=== PATIENT | female | born 1975 | race African-American/Black ===

== ENCOUNTER 2016-10-17 10:31 | Inpatient (IN) | payer OTHER ==
[~2016-10-17] VITALS: Ht 167.6 cm; Wt 111.6 kg
[2016-10-17 12:04] LABS: URINE APPEARANCE CLEAR (CLEAR); URINE BILIRUBIN NEG (NEG); URINE COLOR YELLOW; URINE EPITHELIAL CELL AUTO >30 /lpf (0-5); URINE NITRITE NEG (NEG); URINE PH 6.5 (4.5-7.5); URINE SPECIFIC GRAVITY 1.017 (1.000-1.030); UROBILINOGEN NEG (NEG); ZZUR CULT IF INDIC CLEAN CATCH YES
[2016-10-17 12:09] LABS: BASO % 0.4 %; BASO ABS # 0.03 K/uL (0-0.2); COMPLETE YES; EOS % 1.6 %; HEMATOCRIT 36.4 % (37-47); IG% 0.1 %; LYMPH % 26.6 %; LYMPH ABS # 1.88 K/uL (1.2-3.4); MEAN CORPUSCULAR HEMOGLOBIN 26.4 pg (25-34); MEAN PLATELET VOLUME 8.9 fL (7.4-10.4); MONO % 8.9 %; NEUT % 62.4 %; PLATELET COUNT 299 K/uL (130-400); RED BLOOD COUNT 4.55 M/uL (4.2-5.4); WHITE BLOOD COUNT 7.07 K/uL (4.8-10.8)
[2016-10-17 12:10] LABS: MANUAL MICROSCOPIC REQUIRED? NO; REVIEW REQ? NO
[2016-10-17 12:27] LABS: CALCIUM 8.6 mg/dl (8.5-10.1); CREATININE 0.95 mg/dl (0.60-1.20); POTASSIUM 3.6 mmol/L (3.5-5.1)
--- NOTE | 2016-10-17 12:27 | EMERGENCY ROOM VISIT NOTE ---
History Report prepared by Rocael: Tim Sanchez Under the Supervision of: Dr. Lynne Saini D.O. First contact with patient: 11:03 Chief Complaint: MENTAL HEALTH EVALUATION Stated Complaint: ANXIETY, PARANOID, SCHIZOPHRENIA, MH EVAL History of Present Illness The patient is a 41 year old female who presents to the Emergency Room for a mental health evaluation. She was seen in a psychiatric hospital in [place] in 2015 and was diagnosed with paranoid schizophrenia disorder. Her current state is more severe than the previous. Recently, she has been going through a lot of stress and life events that have exacerbated her condition. She is also recently homeless. She has many auditory hallucinations that have been getting worse. She believes that everyone is trying to kill her. She is very scared, anxious, and stressed as well. The voices have not recently told her to kill herself, but she feels suicidal at times because the voices are present. She is currently not medication because she states that they make her nauseated and dizzy. She denies any vomiting, abnormal urinary symptoms, , or any other abnormal symptoms. Source of History: patient Onset: recently Position: other (Global) Symptom Intensity: severe Quality: other (Auditory Hallucinations) Timing: intermittent Associated Symptoms: No vomiting, No urinary symptoms Note: She is currently anxious and stressed. Review of Systems See HPI for pertinent positives & negatives. A total of 10 systems reviewed and were otherwise negative. Past Medical & Surgical Medical Problems: (1) Obesity (2) Paranoid schizophrenia Family History Patient reports no known family medical history. Social History Smoking Status: Never Smoker Smokeless Tobacco Use: No Housing Status: lives alone Occupation Status: employed Current/Historical Medications No Active Prescriptions or Reported Meds Allergies Coded Allergies: Peanut (Unverified Allergy, Severe, ITCHING TONGUE, 10/17/16) Physical Exam Vital Signs Date Time Temp Pulse Resp B/P (MAP) Pulse Ox O2 Delivery O2 Flow Rate FiO2 10/17/16 16:43 105 20 151/100 95 Room Air 10/17/16 15:18 101 20 161/109 100 Room Air 10/17/16 14:00 36.8 94 16 164/102 98 Room Air 10/17/16 13:01 104 16 158/98 98 10/17/16 11:00 36.8 102 20 173/100 97 Room Air 10/17/16 10:48 36.9 112 22 184/132 98 Room Air Physical Exam GENERAL: Obese, alert, well appearing, well nourished, no distress, non-toxic EYE EXAM: normal conjunctiva, PERRL and EOM's grossly intact OROPHARYNX: no exudate, no erythema, lips, buccal mucosa, and tongue normal and mucous membranes are moist NECK: supple, no nuchal rigidity, no adenopathy, non-tender LUNGS: Clear to auscultation. Normal chest wall mechanics HEART: no murmurs, S1 normal and S2 normal ABDOMEN: abdomen soft, non-tender, normo-active bowel sounds, no masses, no rebound or guarding. BACK: Back is symmetrical on inspection and there is no deformity, no midline tenderness, no CVA tenderness. SKIN: no rashes and no bruising UPPER EXTREMITIES: upper extremities are grossly normal. LOWER EXTREMITIES: No pitting edema. NEURO EXAM: Normal sensorium, cranial nerves II-XII grossly intact, normal speech, no gross weakness of arms, no gross weakness of legs. PSYCH: Suicidal ideation is present. Auditory hallucinations are present. Medical Decision & Procedures ER Provider Diagnostic Interpretation: Radiology results have been interpreted by the radiologist and reviewed by me. HEAD CT NONCONTRAST CT DOSE: 537.48 mGy.cm HISTORY: Altered mental status. psych request TECHNIQUE: Multiaxial CT images of the head were performed without the use of intravenous contrast. Automated exposure control was utilized for this study. Comparison: None. Findings: There are bubbly secretions within the left sphenoid sinus. The mastoid air cells are clear. The calvarium and skull base are intact. The ventricles and sulci are within normal limits. There is no mass, hematoma, midline shift, or acute infarct. Impression: No acute intracranial abnormality. Electronically signed by: Sukh Longoria M.D. 10/17/2016 4:34 PM Dictated Date/Time: 10/17/2016 4:31 PM Laboratory Results 10/17/16 11:57 Red Blood Count 4.55, Mean Corpuscular Volume 80.0, Mean Corpuscular Hemoglobin 26.4, Mean Corpuscular Hemoglobin Concent 33.0, Mean Platelet Volume 8.9, Neutrophils (%) (Auto) 62.4, Lymphocytes (%) (Auto) 26.6, Monocytes (%) (Auto) 8.9, Eosinophils (%) (Auto) 1.6, Basophils (%) (Auto) 0.4, Neutrophils # (Auto) 4.41, Lymphocytes # (Auto) 1.88, Monocytes # (Auto) 0.63, Eosinophils # (Auto) 0.11, Basophils # (Auto) 0.03 10/17/16 11:57 Test 10/17/16 11:00 10/17/16 11:57 Urine Color YELLOW Urine Appearance CLEAR (CLEAR) Urine pH 6.5 (4.5-7.5) Urine Specific [place] 1.017 (1.000-1.030) Urine Protein NEG (NEG) Urine Glucose (UA) NEG (NEG) Urine Ketones NEG (NEG) Urine Occult Blood TRACE (NEG) Urine Nitrite NEG (NEG) Urine Bilirubin NEG (NEG) Urine Urobilinogen NEG (NEG) Urine Leukocyte Esterase NEG (NEG) Urine WBC (Auto) 1-5 /hpf (0-5) Urine RBC (Auto) 0-4 /hpf (0-4) Urine Hyaline Casts (Auto) 1-5 /lpf (0-5) Urine Epithelial Cells (Auto) >30 /lpf (0-5) Urine Bacteria (Auto) 1+ (NEG) Urine Test NEG (NEG) Urine Opiates Screen NEG (NEG) Urine Methadone, Qualitative NEG (NEG) Urine Barbiturates NEG (NEG) Urine Phencyclidine (PCP) Level NEG (NEG) Ur Amphetamine/Methamphetamine NEG (NEG) MDMA (Ecstasy) Screen NEG (NEG) Urine Benzodiazepines Screen NEG (NEG) Urine Cocaine Metabolite NEG (NEG) Urine Marijuana (THC) NEG (NEG) White Blood Count 7.07 K/uL (4.8-10.8) Red Blood Count 4.55 M/uL (4.2-5.4) Hemoglobin 12.0 g/dL (12.0-16.0) Hematocrit 36.4 % (37-47) Mean Corpuscular Volume 80.0 fL (80-100) Mean Corpuscular Hemoglobin 26.4 pg (25-34) Mean Corpuscular Hemoglobin Concent 33.0 g/dl (32-36) Platelet Count 299 K/uL (130-400) Mean Platelet Volume 8.9 fL (7.4-10.4) Neutrophils (%) (Auto) 62.4 % Lymphocytes (%) (Auto) 26.6 % Monocytes (%) (Auto) 8.9 % Eosinophils (%) (Auto) 1.6 % Basophils (%) (Auto) 0.4 % Neutrophils # (Auto) 4.41 K/uL (1.4-6.5) Lymphocytes # (Auto) 1.88 K/uL (1.2-3.4) Monocytes # (Auto) 0.63 K/uL (0.11-0.59) Eosinophils # (Auto) 0.11 K/uL (0-0.5) Basophils # (Auto) 0.03 K/uL (0-0.2) RDW Standard Deviation 44.9 fL (36.4-46.3) RDW Coefficient of Variation 15.4 % (11.5-14.5) Immature Granulocyte % (Auto) 0.1 % Immature Granulocyte # (Auto) 0.01 K/uL (0.00-0.02) Anion Gap 7.0 mmol/L (3-11) Est Creatinine Clear Calc Drug Dose 98.7 ml/min Estimated GFR () 86.2 Estimated GFR (Non- 74.4 BUN/Creatinine Ratio 10.0 (10-20) Calcium Level 8.6 mg/dl (8.5-10.1) Total Bilirubin 0.3 mg/dl (0.2-1) Aspartate Amino Transf (AST/SGOT) 25 U/L (15-37) Alanine Aminotransferase (ALT/SGPT) 50 U/L (12-78) Alkaline Phosphatase 83 U/L (45-117) Total Protein 7.0 gm/dl (6.4-8.2) Albumin 3.3 gm/dl (3.4-5.0) Globulin 3.7 gm/dl (2.5-4.0) Albumin/Globulin Ratio 0.9 (0.9-2) Thyroid Stimulating Hormone (TSH) 0.641 uIu/ml (0.300-4.500) Salicylates Level < 1.7 mg/dl (2.8-20) Acetaminophen Level < 2 ug/ml (10-30) Ethyl Alcohol mg/dL < 3.0 mg/dl (0-3) Date/Time Source Procedure Growth Status 10/17/16 11:00 Urine , Clean Catch Urine Culture - Final THREE TYPES OF ORGANISMS PRESENT, ALL... Complete Laboratory results per my review. Medications Administered Medications (Trade) Dose Ordered Sig/Stacey Route Start Time Stop Time Status Last Admin Dose Admin Hydrochlorothiazide (Hydrochlorothiazide Tab) 25 mg NOW STAT PO 10/17/16 15:06 10/17/16 15:07 DC 10/17/16 15:12 25 MG ED Course 1103: The patient was evaluated in room A7. A complete history and physical exam was performed. 1500: I was informed by the psychologic manager case that they would like a CT scan of the patient's head and something for her blood pressure. Pt likely to be placed in [address] [place] [address]. 1506: Ordered Hydrochlorothiazide 25 mg PO 1730: The patient was accepted into [address] [place] [address] for further evaluation and management. Medical Decision Differential diagnoses include mood disorder, infection, hypoglycemia, electrolyte abnormalities, cardiac sources, intracerebral event, toxicologic, neurologic, as well as others. Medication Reconciliation: I attest that I have personally reviewed the patient' s current medication list. Blood pressure screening: Patient was found to have an elevated blood pressure and was referred to their primary doctor for recheck and further treatment. Head CT and blood pressure management requested by psychiatry. Doubt hypertensive urgency/emergency, CVA, intracranial hemorrhage. Patient with well -known psychiatric condition and noncompliant with medications. Doubt additional occult pathology. Impression Primary Impression: Paranoid schizophrenia Additional Impressions: Depression Hypertension Obesity Scribe Attestation The scribe's documentation has been prepared under my direction and personally reviewed by me in its entirety. I confirm that the note above accurately reflects all work, treatment, procedures, and medical decision making performed by me. Departure Information Dispostion Mental Health Acute Care Prescriptions No Active Prescriptions or Reported Meds Referrals No Doctor, Assigned (PCP) Patient Instructions My [facility] Problem Qualifiers Additional Impressions: Depression Depression Type: unspecified Qualified Codes: F32.9 - Major depressive disorder, single episode, unspecified Hypertension Hypertension type: essential hypertension Qualified Codes: I10 - Essential ( primary) hypertension Obesity Obesity type: unspecified obesity type Obesity severity: morbid Qualified Codes: E66.01 - Morbid (severe) obesity due to excess calories
[2016-10-17 12:35] LABS: ACETAMINOPHEN < 2 ug/ml (10-30)
[2016-10-17 12:38] LABS: ALB/GLOB RATIO 0.9 (0.9-2); THYROID STIMULATING HORMONE 0.641 uIu/ml (0.300-4.500)
[2016-10-17 13:31] LABS: BENZODIAZEPINE, URINE NEG (NEG); COCAINE,URINE NEG (NEG); PHENCYCLIDINE, URINE NEG (NEG)
[2016-10-17] MEDS ORDERED: HYDROCHLOROTHIAZIDE 25 MG TAB PO STA (15:06)
--- NOTE | 2016-10-17 16:35 | DIAGNOSTIC IMAGING REPORT ---
HEAD CT NONCONTRAST CT DOSE: 537.48 mGy.cm HISTORY: Altered mental status. psych request TECHNIQUE: Multiaxial CT images of the head were performed without the use of intravenous contrast. Automated exposure control was utilized for this study. Comparison: None. Findings: There are bubbly secretions within the left sphenoid sinus. The mastoid air cells are clear. The calvarium and skull base are intact. The ventricles and sulci are within normal limits. There is no mass, hematoma, midline shift, or acute infarct. Impression: No acute intracranial abnormality. Electronically signed by: Sukh Longoria M.D. 10/17/2016 4:34 PM Dictated Date/Time: 10/17/2016 4:31 PM
[2016-10-17] MEDS ORDERED: CLONAZEPAM 0.5 MG TAB PO PRN (17:30)
[2016-10-17] MEDS ORDERED: MAGNESIUM HYDROXIDE SUSP 30 ML UDC PO PRN (17:30)
[2016-10-17] MEDS ORDERED: hydrOXYzine HCL 25 MG TAB PO PRN ×2 (17:30)
[2016-10-17] MEDS ORDERED: SODIUM CHLORIDE 0.65% NA SOLN 45 ML (OCEAN) PRN (17:30)
[2016-10-17] MEDS ORDERED: BISMUTH SUBSALICYLATE PER ML OMNICELL CHARGE PO PRN (17:30)
[2016-10-17] MEDS ORDERED: RISPERIDONE 1 MG TAB PO ONE (17:45)
[2016-10-17] MEDS ORDERED: NURSING VERBAL MED ORDER SCH (18:00)
[2016-10-17 18:30] VITALS: O2SAT 96
[2016-10-17 19:35] VITALS: BP 140/99; PULSE 102; TEMP 37; BMI 39.7
[2016-10-18 07:04] VITALS: BP 121/82; PULSE 102; TEMP 36.7
[2016-10-18] MEDS: HYDROCHLOROTHIAZIDE 25 MG TAB PO SCH (08:23)
[2016-10-18] MEDS: RISPERIDONE ODT 0.5MG PO PRN ×2 (08:24→14:43)
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
[2016-10-18] MEDS: ACETAMINOPHEN 325 MG TAB PO PRN ×2 (14:29→21:15)
[2016-10-18] MEDS: LORAZEPAM 1 MG TAB PO PRN (15:09)
[2016-10-18] MEDS ORDERED: RISPERIDONE 1 MG TAB PO SCH (22:00)
[2016-10-19 06:07] VITALS: BP 101/69; PULSE 80; TEMP 36.4
[2016-10-19 06:47] LABS: CHOLESTEROL/HDL RATIO 3.5
[2016-10-19] MEDS: HYDROCHLOROTHIAZIDE 25 MG TAB PO SCH (09:31)
[2016-10-19] MEDS: RISPERIDONE ODT 0.5MG PO PRN (09:31)
[2016-10-19] MEDS: LORAZEPAM 1 MG TAB PO PRN (11:10)
[2016-10-19] MEDS ORDERED: RISPERIDONE 1 MG TAB PO ONE (11:30)
--- NOTE | 2016-10-19 11:34 | Psychiatric Progress Notes ---
Progress Note Date of Service Oct 19, 2016. Interval History 41 yo female admitted voluntarily on 10/18/16 with an acute exacerbation of paranoid schizophrenia after being off of her medications. Chief Complaint "The voices, its like they're hungry.". Subjective Patient was seen & assessed interval progress reviewed with Treatment Team. The patient remains very psychotic today. She is paranoid about me writing her name on the board outside of the office, thinking that people will know all about her by doing that. She eventually asks me to erase her name. She reports ongoing voices in her head saying that they are going to eat her. She was so afraid last night that she slept on the floor and not her bed. She is having visual hallucinations, seeing bodies stacked up on the floor with a staff member on top eating a bowl of cereal. She also saw the staff in the nurses station eating each other. She is not able to reality test this and she feels afraid. She reports that she feels tired on the meds, but they are helping her to feel more "calm" and so is willing to increase the dose, but did not want to think about changing to a different agent, Invega. She says that she wants to kill herself when she leaves here because she doesn't like her life , "I shouldn't have to live like this." and also asks for a gun. Review of Systems Constitutional: + fatigue ENT: No hearing loss, No unusual epistaxis, No nasal symptoms, No sore throat, No tinnitus, No dental problems, No trouble swallowing, No problem reported Respiratory: No cough, No sputum, No wheezing, No shortness of breath, No dyspnea on exertion, No dyspnea at rest, No hemoptysis, No problem reported Cardiovascular: No chest pain, No orthopnea, No PND, No edema, No claudication , No palpitations, No problem reported Abdomen: No pain, No nausea, No vomiting, No diarrhea, No constipation, No GI bleeding, No problem reported Musculoskeletal: No joint pain, No muscle pain, No swelling, No calf pain, No problem reported Neurologic: No memory loss, No paralysis, No weakness, No numbness/tingling, No vertigo, No balance problems, No problem reported Psychiatric: + problem reported (paranoia, and hallucinations) Integumentary: No rash, No itch, No new/changing skin lesions, No color change , No bleeding, No problem reported Sleep Information Total Hours of Sleep: 8.00 Meal Information Percent of Breakfast Consumed: 100 Percent of Lunch Consumed: 100 Percent of Dinner Consumed: 100 Mental Status Exam During interview pt is: guarded Appearance: disheveled (in hospital gown and pants, hair is disheveled, but no odor and not unclean) Eye contact is: fair Motor behavior is: steady gait & station, no abnormal motor movements Speech: normal in rate, rhythm & volume, other (slow and intentional, minimal spont speech of few words when asked question) Affect: anxious Mood is: depressed, anxious Thought process: perseveration (about hallucinations and delusions), other ( paucity of spontaneous thoughts and disorganized) Thought content: preoccupation, paranoid (feeling others are trying to hurt her , eat her), delusions (beleiving others are trying to kill her and eat her with no reality testing), ideas of reference (other actions are in reference to their desire to harm her), persecution Suicidal thought are: present, Plan: present (asking for a gun) Homicidal thoughts are: denied Hallucinations: auditory, visual Cognition: memory grossly intact, language grossly intact Intelligence estimated to be: average Insight: poor, severely impaired Judgement: poor, severely impaired Impression The patient remains psychotic, with paranoia and both auditory and visual hallucinations. Risperdal is helping to calm, but today we will titrate tof 1 mg. AM and 1.5 mg. Hs, continuing prns. She is too psychotic to discuss an BANKS today, but with her history of noncompliance, would benefit. Will need to gather additional information from family as she is too psychotic to participate in an accurate review of history. Plan (1) Paranoid schizophrenia 1. Safety - inpatient is least restrictive and most appropriate setting for care due to ongoing AH prompting SI with plan, disorganization and paranoid delusions of others harming her resulting in statement "I am going to be violent" and limited ability to care for self in this disorganized state - milieu, group therapy, and while still verbalizing thoughts of violence Medically necessary private room 2. Medications - Risperdal 1mg/hs with 0.5mg po tid prn watching for orthostasis, and sedation , 10/19/16 will get FBS and Fasting lipids; watch tachycardia may be agitation of psychosis but could be SE or risperdal - change klonopin to prn ativan for severe agitation due to shorter half life and need to monitor sedation 3. Obtain prior records from [place] to learn about past med trials, efficacy and side effects, if risperdal is efficatious consider Consta or Invega to foster compliance if no contraindications and accessible 10/19 - Increase Risperdal to 1 mg. AM and 1.5 mg. HS - Obtain supplemental from family (2) Obesity - obtain fasting lipids and blood sugar - monitor and consider metformin to offset weight gain of AAP - encourage physical activity as tolerated to reduce risk of gain Discharge / Aftercare Planning Primary Care Physician: Name: Unknown Therapist: Name: Unknown Emergency Vehicle Dispatcher: Name: Unknown Visit Code E&M Code: 35312 Inventory Assets Strengths: voluntary for admission, supportive family (allbeit geographically ), locked unit Needs: assurance of aftercare and treatment plan to foster compliance clarification of her job and housing status Risk Factors Assessment : No /single/: Yes Higher / Fall in social status: No Health problems: No Mental Health Diagnoses: Yes Substance use disorders: No Previous attempt: Yes Previous attempt; planned: No Previous attempt; didn't tell: Yes Family history of suicide: No Previous psychiatric stay: Yes Hopelessness: Yes Smoker: No Protective Factors Assessment Jehovah'S Witness beliefs: Yes : No Responsible for young children: No Employed: No Stable relationships: No Supportive family: Yes Good rapport with provider: No Data Vital Signs Last 24 Hrs: Date Time Temp Pulse Resp B/P (MAP) Pulse Ox O2 Delivery O2 Flow Rate FiO2 10/19/16 06:07 36.4 80 17 101/69 Meds Administered Last 24 Hrs: Meds Administered (Past 24Hrs) Medications (Trade) Dose Ordered Sig/Stacey Route Start Time Stop Time Status Last Admin Dose Admin Hydrochlorothiazide (Hydrochlorothiazide Tab) 25 mg NOW STAT PO 10/17/16 15:06 10/17/16 15:07 DC 10/17/16 15:12 25 MG Acetaminophen (Tylenol Tab) 650 mg Q4H PRN PO 10/17/16 17:30 11/16/16 17:29 10/18/16 21:15 650 MG Bismuth Subsalicylate (Kaopectate Liqd) 15 ml PRN PRN PO 10/17/16 17:30 11/16/16 17:29 10/18/16 21:17 15 ML Risperidone (Risperdal M Tab) 0.5 mg TID PRN PO 10/17/16 17:30 11/16/16 17:29 10/19/16 09:31 0.5 MG Clonazepam (Klonopin Tab) 0.5 mg TID PRN PO 10/17/16 17:30 10/18/16 12:46 DC 10/18/16 08:24 0.5 MG Risperidone (Risperdal Tab) 1 mg NOW ONCE PO 10/17/16 17:45 10/17/16 17:46 DC 10/17/16 18:22 1 MG Hydrochlorothiazide (Hydrochlorothiazide Tab) 25 mg DAILY PO 10/18/16 09:00 11/17/16 08:59 10/19/16 09:31 25 MG Risperidone (Risperdal Tab) 1 mg HS PO 10/18/16 22:00 11/17/16 21:59 10/18/16 21:11 1 MG Lorazepam (Ativan Tab) 1 mg TID PRN PO 10/18/16 12:45 11/17/16 12:44 10/18/16 15:09 1 MG Lab Results Last 24 Hrs: Last 24 Hours Test 10/19/16 06:10 Fasting Glucose 100 mg/dl Triglycerides Level 125 mg/dl Cholesterol Level 166 mg/dl HDL Cholesterol 47 mg/dl LDL Cholesterol, Calculated 94 mg/dl VLDL Cholesterol, Calculated 25 mg/dl Cholesterol/HDL Ratio 3.5
[2016-10-19] MEDS: ACETAMINOPHEN 325 MG TAB PO PRN (14:09)
[2016-10-19] MEDS: RISPERIDONE 1 MG TAB PO SCH (21:11)
[2016-10-19] MEDS ORDERED: RISPERIDONE 1 MG TAB PO SCH (22:00)
[2016-10-20 06:40] VITALS: BP_SYST 122; BP_DIAS 70; BP_DIAS 83; PULSE 112; PULSE 120; TEMP 36.8
[2016-10-20] MEDS: HYDROCHLOROTHIAZIDE 25 MG TAB PO SCH (08:26)
[2016-10-20] MEDS: RISPERIDONE 1 MG TAB PO SCH ×2 (08:26→20:59)
[2016-10-20] MEDS: RISPERIDONE ODT 0.5MG PO PRN (10:01)
[2016-10-20] MEDS: LORAZEPAM 1 MG TAB PO PRN (10:01)
--- NOTE | 2016-10-20 13:16 | Psychiatric Progress Notes ---
Progress Note Date of Service Oct 20, 2016. Interval History 41 yo female admitted voluntarily on 10/18/16 with an acute exacerbation of paranoid schizophrenia after being off of her medications. Chief Complaint "Fine.". Subjective Patient was seen & assessed interval progress reviewed with Treatment Team. The patient is somewhat irritable and guarded today. She wanted to postpone the interview. She says that the pills are working and her hallucinations are going away. She remains anxious and at time fearful on the unit. She continues to eat her meals in her room, where she spends most of her time. She denies side effects to meds other than "tiredness". She reports good sleep and appetite. Attempts were made to explore her thought disorder further, but she became irritable saying "I'm fine, OK?!". Nursing reports that Colette has been paranoid, worried that staff are not who they say they are, because they wear street clothes just like the patients. Colette also said that she gets overstimulated when she is with more than 3 people at a time. She was able to shower today and put on clean gowns. Review of Systems Constitutional: + fatigue ENT: No hearing loss, No unusual epistaxis, No nasal symptoms, No sore throat, No tinnitus, No dental problems, No trouble swallowing, No problem reported Respiratory: No cough, No sputum, No wheezing, No shortness of breath, No dyspnea on exertion, No dyspnea at rest, No hemoptysis, No problem reported Cardiovascular: No chest pain, No orthopnea, No PND, No edema, No claudication , No palpitations, No problem reported Abdomen: No pain, No nausea, No vomiting, No diarrhea, No constipation, No GI bleeding, No problem reported Musculoskeletal: No joint pain, No muscle pain, No swelling, No calf pain, No problem reported Neurologic: No memory loss, No paralysis, No weakness, No numbness/tingling, No vertigo, No balance problems, No problem reported Psychiatric: + problem reported (hallucinations improving) Integumentary: No rash, No itch, No new/changing skin lesions, No color change , No bleeding, No problem reported Sleep Information Total Hours of Sleep: 7.25 Meal Information Percent of Breakfast Consumed: 100 Percent of Lunch Consumed: 100 Percent of Dinner Consumed: 100 Mental Status Exam During interview pt is: guarded Appearance: appropriately groomed (just showered) Eye contact is: fair Motor behavior is: steady gait & station, no abnormal motor movements Speech: normal in rate, rhythm & volume, other (slow and intentional, minimal spont speech of few words when asked question) Affect: blunted, anxious Mood is: depressed, irritable, anxious Thought process: goal directed Thought content: preoccupation, paranoid (feeling others are trying to hurt her , eat her), delusions (beleiving others are trying to kill her and eat her with no reality testing), ideas of reference (other actions are in reference to their desire to harm her), persecution Suicidal thought are: denied Homicidal thoughts are: denied Hallucinations: auditory, visual Cognition: memory grossly intact, language grossly intact Intelligence estimated to be: average Insight: poor, severely impaired Judgement: poor, severely impaired Impression The patient remains psychotic, but with some improvement. She is tolerating the medications with few side effects. Will continue current dose of risperdal for today. As she improves, and is able to tolerate the discussion, will work toward getting her on an BANKS for improved compliance. We have obtained supplemental info from her mother and sister, both of whom say that she is chronically ill, chronically hospitalized and chronically noncompliant. Plan (1) Paranoid schizophrenia 1. Safety - inpatient is least restrictive and most appropriate setting for care due to ongoing AH prompting SI with plan, disorganization and paranoid delusions of others harming her resulting in statement "I am going to be violent" and limited ability to care for self in this disorganized state - milieu, group therapy, and while still verbalizing thoughts of violence Medically necessary private room 2. Medications - Risperdal 1mg/hs with 0.5mg po tid prn watching for orthostasis, and sedation , 10/19/16 will get FBS and Fasting lipids; watch tachycardia may be agitation of psychosis but could be SE or risperdal - change klonopin to prn ativan for severe agitation due to shorter half life and need to monitor sedation 3. Obtain prior records from [place] to learn about past med trials, efficacy and side effects, if risperdal is efficatious consider Consta or Invega to foster compliance if no contraindications and accessible 10/19 - Increase Risperdal to 1 mg. AM and 1.5 mg. HS - Obtain supplemental from family 10/20 - Continue current meds - work toward an BANKS (2) Obesity - obtain fasting lipids and blood sugar - monitor and consider metformin to offset weight gain of AAP - encourage physical activity as tolerated to reduce risk of gain Discharge / Aftercare Planning Primary Care Physician: Name: Unknown Therapist: Name: Unknown Proof Coins Inspector: Name: Unknown Visit Code E&M Code: 02074 Inventory Assets Strengths: voluntary for admission, supportive family (allbeit geographically ), locked unit Needs: assurance of aftercare and treatment plan to foster compliance clarification of her job and housing status Risk Factors Assessment : No /single/: Yes Higher / Fall in social status: No Health problems: No Mental Health Diagnoses: Yes Substance use disorders: No Previous attempt: Yes Previous attempt; planned: No Previous attempt; didn't tell: Yes Family history of suicide: No Previous psychiatric stay: Yes Hopelessness: Yes Smoker: No Protective Factors Assessment Anglican beliefs: Yes : No Responsible for young children: No Employed: No Stable relationships: No Supportive family: Yes Good rapport with provider: No Data Vital Signs Last 24 Hrs: Date Time Temp Pulse Resp B/P (MAP) Pulse Ox O2 Delivery O2 Flow Rate FiO2 10/20/16 06:40 36.8 112 20 122/83 120 122/70 Meds Administered Last 24 Hrs: Meds Administered (Past 24Hrs) Medications (Trade) Dose Ordered Sig/Stacey Route Start Time Stop Time Status Last Admin Dose Admin Risperidone (Risperdal Tab) 1 mg HS PO 10/18/16 22:00 10/19/16 10:54 DC 10/18/16 21:11 1 MG Risperidone (Risperdal Tab) 1 mg 1130 ONCE PO 10/19/16 11:30 10/19/16 11:31 DC 10/19/16 11:10 1 MG Risperidone (Risperdal Tab) 1 mg QAM PO 10/20/16 09:00 11/19/16 08:59 10/20/16 08:26 1 MG Risperidone (Risperdal Tab) 1.5 mg HS PO 10/19/16 22:00 11/18/16 21:59 10/19/16 21:11 1.5 MG Lab Results Last 24 Hrs: 10/17/16 11:57 Red Blood Count 4.55, Mean Corpuscular Volume 80.0, Mean Corpuscular Hemoglobin 26.4, Mean Corpuscular Hemoglobin Concent 33.0, Mean Platelet Volume 8.9, Neutrophils (%) (Auto) 62.4, Lymphocytes (%) (Auto) 26.6, Monocytes (%) (Auto) 8.9, Eosinophils (%) (Auto) 1.6, Basophils (%) (Auto) 0.4, Neutrophils # (Auto) 4.41, Lymphocytes # (Auto) 1.88, Monocytes # (Auto) 0.63, Eosinophils # (Auto) 0.11, Basophils # (Auto) 0.03 10/17/16 11:57 Test 10/17/16 11:00 10/17/16 11:57 10/19/16 06:10 Urine Color YELLOW Urine Appearance CLEAR (CLEAR) Urine pH 6.5 (4.5-7.5) Urine Specific [place] 1.017 (1.000-1.030) Urine Protein NEG (NEG) Urine Glucose (UA) NEG (NEG) Urine Ketones NEG (NEG) Urine Occult Blood TRACE (NEG) Urine Nitrite NEG (NEG) Urine Bilirubin NEG (NEG) Urine Urobilinogen NEG (NEG) Urine Leukocyte Esterase NEG (NEG) Urine WBC (Auto) 1-5 /hpf (0-5) Urine RBC (Auto) 0-4 /hpf (0-4) Urine Hyaline Casts (Auto) 1-5 /lpf (0-5) Urine Epithelial Cells (Auto) >30 /lpf (0-5) Urine Bacteria (Auto) 1+ (NEG) Urine Test NEG (NEG) Urine Opiates Screen NEG (NEG) Urine Methadone, Qualitative NEG (NEG) Urine Barbiturates NEG (NEG) Urine Phencyclidine (PCP) Level NEG (NEG) Ur Amphetamine/Methamphetamine NEG (NEG) MDMA (Ecstasy) Screen NEG (NEG) Urine Benzodiazepines Screen NEG (NEG) Urine Cocaine Metabolite NEG (NEG) Urine Marijuana (THC) NEG (NEG) White Blood Count 7.07 K/uL (4.8-10.8) Red Blood Count 4.55 M/uL (4.2-5.4) Hemoglobin 12.0 g/dL (12.0-16.0) Hematocrit 36.4 % (37-47) Mean Corpuscular Volume 80.0 fL (80-100) Mean Corpuscular Hemoglobin 26.4 pg (25-34) Mean Corpuscular Hemoglobin Concent 33.0 g/dl (32-36) Platelet Count 299 K/uL (130-400) Mean Platelet Volume 8.9 fL (7.4-10.4) Neutrophils (%) (Auto) 62.4 % Lymphocytes (%) (Auto) 26.6 % Monocytes (%) (Auto) 8.9 % Eosinophils (%) (Auto) 1.6 % Basophils (%) (Auto) 0.4 % Neutrophils # (Auto) 4.41 K/uL (1.4-6.5) Lymphocytes # (Auto) 1.88 K/uL (1.2-3.4) Monocytes # (Auto) 0.63 K/uL (0.11-0.59) Eosinophils # (Auto) 0.11 K/uL (0-0.5) Basophils # (Auto) 0.03 K/uL (0-0.2) RDW Standard Deviation 44.9 fL (36.4-46.3) RDW Coefficient of Variation 15.4 % (11.5-14.5) Immature Granulocyte % (Auto) 0.1 % Immature Granulocyte # (Auto) 0.01 K/uL (0.00-0.02) Anion Gap 7.0 mmol/L (3-11) Est Creatinine Clear Calc Drug Dose 98.7 ml/min Estimated GFR () 86.2 Estimated GFR (Non- 74.4 BUN/Creatinine Ratio 10.0 (10-20) Calcium Level 8.6 mg/dl (8.5-10.1) Total Bilirubin 0.3 mg/dl (0.2-1) Aspartate Amino Transf (AST/SGOT) 25 U/L (15-37) Alanine Aminotransferase (ALT/SGPT) 50 U/L (12-78) Alkaline Phosphatase 83 U/L (45-117) Total Protein 7.0 gm/dl (6.4-8.2) Albumin 3.3 gm/dl (3.4-5.0) Globulin 3.7 gm/dl (2.5-4.0) Albumin/Globulin Ratio 0.9 (0.9-2) Thyroid Stimulating Hormone (TSH) 0.641 uIu/ml (0.300-4.500) Salicylates Level < 1.7 mg/dl (2.8-20) Acetaminophen Level < 2 ug/ml (10-30) Ethyl Alcohol mg/dL < 3.0 mg/dl (0-3) Fasting Glucose 100 mg/dl (70-99) Triglycerides Level 125 mg/dl (0-150) Cholesterol Level 166 mg/dl (0-200) HDL Cholesterol 47 mg/dl LDL Cholesterol, Calculated 94 mg/dl VLDL Cholesterol, Calculated 25 mg/dl Cholesterol/HDL Ratio 3.5 Date/Time Source Procedure Growth Status 10/17/16 11:00 Urine , Clean Catch Urine Culture - Final THREE TYPES OF ORGANISMS PRESENT, ALL... Complete
[2016-10-20] MEDS: ACETAMINOPHEN 325 MG TAB PO PRN (20:03)
[2016-10-21] MEDS: RISPERIDONE ODT 0.5MG PO PRN (06:48)
[2016-10-21] MEDS: LORAZEPAM 1 MG TAB PO PRN (06:48)
[2016-10-21 06:50] VITALS: BP 123/86; PULSE 105; TEMP 36.6
[2016-10-21] MEDS: RISPERIDONE 1 MG TAB PO SCH (09:07)
[2016-10-21] MEDS: HYDROCHLOROTHIAZIDE 25 MG TAB PO SCH (09:07)
--- NOTE | 2016-10-21 12:47 | Psychiatric Progress Notes ---
Progress Note Date of Service Oct 21, 2016. Interval History 41 yo female admitted voluntarily on 10/18/16 with an acute exacerbation of paranoid schizophrenia after being off of her medications. Chief Complaint "[People are trying to eat each other. Maybe I should solve my problem at the gun store]". Subjective Patient was seen & assessed interval progress reviewed with Treatment Team. I met individually with the patient today in order to assess her current mental status, answer questions that she may have, and formulated treatment plan. The patient tells me that she carries a diagnosis of "paranoid schizophrenia," and is able to correctly identify some of the symptoms of disorder, including hallucinations and "thinking that people are trying to kill [her]." She reports that he'll hospital she is continuing to have visions of "people eating each other." She also says that she feels that people are trying to "eat her." She clarified that by "eating" she means devouring human flesh, although she has also had visions of people having oral sex. She further reports that she is hearing "voices" that are telling her that she is about to be devoured, or that people are coming at her and will squirt "chloroform in[her] face." The patient reports that she has been experiencing visual hallucinations as well as auditory hallucinations at least for the past 3 years, and notes that the problem "gets better" when she takes risperidone. However, she says that haloperidol make sure "get all mixed up" and "roll on the floor" and "get extremely nervous and agitated." She tells me that she feels comfortable in the hospital, but adds that she believes that "probably suicide is the best solution for me." He says that she is growing apart from her children and that they are unlikely to be involved with her the future. He also says that she is tortured by her visions and hallucinations and thinks that the solution would be to kill herself by self-inflicted gunshot wound. Patient reports "good sleep " on the current medication regimen, and says that she does feel that risperidone has helped her sleep better at night. She reports that she is not experiencing any side effects from risperidone and she does appear to be tolerating it well. However, her psychotic symptoms persist. On mental status examination, as above, the patient demonstrates kandace psychotic symptoms and reports both visual and auditory hallucinations. She also has delusions of persecution, such as a belief that she is about to be "eaten alive" by other people or have chloroform sprayed in her face to kill her. Her mood is described as "nervous and upset." Her affect is anxious, but not particularly constricted and she is verbal, spontaneous, and seems capable of developing rapport. However, she abruptly terminates our meeting and walks out of the room. A few minutes later, she returned and asked me to "be sure to put that people are trying to chloroform me in my record." Review of Systems Constitutional: No fever, No chills, No sweats, No weight loss, No weakness, No fatigue, No problem reported ENT: No hearing loss, No unusual epistaxis, No nasal symptoms, No sore throat, No tinnitus, No dental problems, No trouble swallowing, No problem reported Respiratory: No cough, No sputum, No wheezing, No shortness of breath, No dyspnea on exertion, No dyspnea at rest, No hemoptysis, No problem reported Cardiovascular: No chest pain, No orthopnea, No PND, No edema, No claudication , No palpitations, No problem reported Abdomen: No pain, No nausea, No vomiting, No diarrhea, No constipation, No GI bleeding, No problem reported Musculoskeletal: No joint pain, No muscle pain, No swelling, No calf pain, No problem reported Neurologic: No memory loss, No paralysis, No weakness, No numbness/tingling, No vertigo, No balance problems, No problem reported Psychiatric: No depression symptoms, No anhedonism, No anxiety, No insomnia, No substance abuse, No problem reported Integumentary: No rash, No itch, No new/changing skin lesions, No color change , No bleeding, No problem reported Sleep Information Total Hours of Sleep: 6.75 Meal Information Percent of Breakfast Consumed: 100 Percent of Lunch Consumed: 100 Percent of Dinner Consumed: 100 Mental Status Exam During interview pt is: alert and oriented, guarded Appearance: disheveled Eye contact is: fair Motor behavior is: steady gait & station, no abnormal motor movements Speech: normal in rate, rhythm & volume, other (the patient is more fully verbal today, and speak spontaneously about her various ears and the sources of her current distress.) Affect: blunted, anxious Mood is: anxious Thought process: goal directed (with some loosening of associations without external structure, as well as tangentiality and derailment), looseness of associations Thought content: preoccupation, paranoid (feeling others are trying to hurt her , eat her), delusions (beleiving others are trying to kill her and eat her with no reality testing), ideas of reference (other actions are in reference to their desire to harm her), persecution Suicidal thought are: denied Homicidal thoughts are: denied Hallucinations: auditory, visual Cognition: memory grossly intact, language grossly intact Intelligence estimated to be: average Insight: poor, severely impaired Judgement: poor, severely impaired Impression The patient remains psychotic, but today is more verbal, spontaneous and appears to be more trusting her interactions with providers. Of concern is her voiced suicidal ideation, which include a thought of self-inflicted gunshot wound. She says that she does not intend to act on these thoughts while in the hospital, but says that this "may be the best solution" when she discharged, unless she can "stop the voices." She is tolerating risperidone well, and will increase her dose of this medication today in order to assist and controlling her psychotic symptoms Plan (1) Paranoid schizophrenia 1. Safety - inpatient is least restrictive and most appropriate setting for care due to ongoing AH prompting SI with plan, disorganization and paranoid delusions of others harming her resulting in statement "I am going to be violent" and limited ability to care for self in this disorganized state - milieu, group therapy, and while still verbalizing thoughts of violence Medically necessary private room 2. Medications - Risperdal 1mg/hs with 0.5mg po tid prn watching for orthostasis, and sedation , 10/19/16 will get FBS and Fasting lipids; watch tachycardia may be agitation of psychosis but could be SE or risperdal - change klonopin to prn ativan for severe agitation due to shorter half life and need to monitor sedation 3. Obtain prior records from [place] to learn about past med trials, efficacy and side effects, if risperdal is efficatious consider Consta or Invega to foster compliance if no contraindications and accessible 10/19 - Increase Risperdal to 1 mg. AM and 1.5 mg. HS - Obtain supplemental from family 10/20 - Continue current meds - work toward an BANKS 10/21 - Increase Risperidone to 2 mg PO qAM and 3 mg HS (2) Obesity - obtain fasting lipids and blood sugar - monitor and consider metformin to offset weight gain of AAP - encourage physical activity as tolerated to reduce risk of gain Discharge / Aftercare Planning Primary Care Physician: Name: Unknown Therapist: Name: Unknown Vascular Tech: Name: Unknown Visit Code E&M Code: 40028 Inventory Assets Strengths: voluntary for admission, supportive family (allbeit geographically ), locked unit Needs: assurance of aftercare and treatment plan to foster compliance clarification of her job and housing status Risk Factors Assessment : No /single/: Yes Higher / Fall in social status: No Health problems: No Mental Health Diagnoses: Yes Substance use disorders: No Previous attempt: Yes Previous attempt; planned: No Previous attempt; didn't tell: Yes Family history of suicide: No Previous psychiatric stay: Yes Hopelessness: Yes Smoker: No Protective Factors Assessment Synagogue beliefs: Yes : No Responsible for young children: No Employed: No Stable relationships: No Supportive family: Yes Good rapport with provider: No Absence of risk factors above: No Data Vital Signs Last 24 Hrs: Date Time Temp Pulse Resp B/P (MAP) Pulse Ox O2 Delivery O2 Flow Rate FiO2 10/21/16 06:50 36.6 105 20 123/86 Meds Administered Last 24 Hrs: Meds Administered (Past 24Hrs) Medications (Trade) Dose Ordered Sig/Stacey Route Start Time Stop Time Status Last Admin Dose Admin Risperidone (Risperdal Tab) 1 mg QAM PO 10/20/16 09:00 11/19/16 08:59 10/21/16 09:07 1 MG Risperidone (Risperdal Tab) 1.5 mg HS PO 10/19/16 22:00 11/18/16 21:59 10/20/16 20:59 1.5 MG Problem Qualifiers (1) Obesity: Obesity type: due to excess calories
[2016-10-21 13:41] LABS: SYNTHETIC CANNABINOIDS QL URIN NEGATIVE (Negative)
[2016-10-21] MEDS: ALUMINUM/MAGNESIUM SUSP 30 ML UDC PO PRN (14:18)
[2016-10-21] MEDS ORDERED: RISPERIDONE 3 MG TAB PO SCH (22:00)
[2016-10-22 06:53] VITALS: BP 121/85; PULSE 109; TEMP 36.6
[2016-10-22] MEDS: RISPERIDONE 2 MG TAB PO SCH ×2 (09:01→21:46)
[2016-10-22] MEDS: HYDROCHLOROTHIAZIDE 25 MG TAB PO SCH (09:01)
--- NOTE | 2016-10-22 10:22 | Psychiatric Progress Notes ---
Progress Note Date of Service Oct 22, 2016. Interval History 41 yo female admitted voluntarily on 10/18/16 with an acute exacerbation of paranoid schizophrenia after being off of her medications. Chief Complaint "I'm still seeing zombies, and the voices keep telling me that people here are trying to kill me.". Subjective Patient was seen & assessed interval progress reviewed with Treatment Team. I met individually with the patient this morning in order to assess her current mental status, determine her response to her recent medication changes, to provide support and encouragement, and to answer and address questions and concerns that the patient may have. The patient begins by telling me that she is no better, but later acknowledges that she does feel that risperidone is helping her in that her thinking is "more clear" and she is not experiencing his many visual hallucinations. Of note is the fact the patient, herself, refers to these as hallucinations and is today willing to consider the visions may not represent what is really happening. For example, when I ask her if she could take me to a window and show me the "zombies eating each other and tying cars together" that she reported that she was seeing, she said "how could you see them? You're not hallucinating." She reports that she has been troubled by both visual and auditory hallucinations since 2005, and notes that the visual hallucinations or episodic, while the auditory hallucinations are fairly continuous. She says that at first she got herself in trouble when she was hearing "voices" because she would confront people, such as strangers on the street, and accuse them of saying things that they hadn't said. She continues to believe that people are coming up behind her and spring chloroform and her face. Because of her history of visual hallucinations, I asked further about any history of head injury, and today she tells me that when she was 18 she inadvertently walked into a utility pole while walking rapidly and talking to a friend. She said that she was knocked unconscious. However, she says she has never had seizures, and the visual hallucinations did not occur until many years later. We discussed various treatment options, including clozapine and carbamazepine. However, she says that she feels that risperidone "is the right medication" and that it has helped her in the past. She says that it never takes the voices away, but they "get better" and she is still able to retain her "ability to think." I provided support, reality testing, education regarding her illness, and encouragement. The record indicates that the patient has had a somewhat elevated heart rate, a circumstance that occurs in the context of her anxiety and preexisted medication administration. The patient told me that she was unhappy with the hospital because her breakfast tray came "closer to 9" when she expects to eat at 8am. I was then notified that after the patient had eaten her breakfast she called 911 and told the truckload owner operator that the hospital was "starving her." When I confronted the patient about this she laughed and admitted that she had done it. She was instructed that this is not only inappropriate, it is illegal to make false reports. The patient indicated understanding. Review of Systems Constitutional: No fever, No chills, No sweats, No weight loss, No weakness, No fatigue, No problem reported ENT: No hearing loss, No unusual epistaxis, No nasal symptoms, No sore throat, No tinnitus, No dental problems, No trouble swallowing, No problem reported Respiratory: No cough, No sputum, No wheezing, No shortness of breath, No dyspnea on exertion, No dyspnea at rest, No hemoptysis, No problem reported Cardiovascular: No chest pain, No orthopnea, No PND, No edema, No claudication , No palpitations, No problem reported Abdomen: No pain, No nausea, No vomiting, No diarrhea, No constipation, No GI bleeding, No problem reported Musculoskeletal: No joint pain, No muscle pain, No swelling, No calf pain, No problem reported Neurologic: No memory loss, No paralysis, No weakness, No numbness/tingling, No vertigo, No balance problems, No problem reported Psychiatric: + depression symptoms, + anxiety, + problem reported (persistent auditory and visual hallucinations of a persecutory nature.) Integumentary: No rash, No itch, No new/changing skin lesions, No color change , No bleeding, No problem reported Sleep Information Total Hours of Sleep: 5.25 Meal Information Percent of Breakfast Consumed: 100 Percent of Lunch Consumed: 100 Percent of Dinner Consumed: 100 Mental Status Exam During interview pt is: alert and oriented, guarded Appearance: disheveled Eye contact is: fair Motor behavior is: steady gait & station, no abnormal motor movements Speech: normal in rate, rhythm & volume, other (the patient is more fully verbal today, and speak spontaneously about her various ears and the sources of her current distress.) Affect: blunted, anxious Mood is: anxious Thought process: goal directed (with some loosening of associations without external structure, as well as tangentiality and derailment), looseness of associations Thought content: preoccupation, paranoid (feeling others are trying to hurt her , eat her), delusions (beleiving others are trying to kill her and eat her with no reality testing), ideas of reference (other actions are in reference to their desire to harm her), persecution Suicidal thought are: denied Homicidal thoughts are: denied Hallucinations: auditory, visual Cognition: memory grossly intact, language grossly intact Intelligence estimated to be: average Insight: poor, severely impaired Judgement: poor, severely impaired Impression The patient remains psychotic, but today demonstrates tentative insight into her illness and, somewhat surprisingly, is willing to accept the possibility that the voices she hears and the visions that she sees are not based in reality. She also tells me today that she is at least ambivalent about killing herself, and says that the thoughts of killing herself are not present continuously, as she had indicated yesterday. She also renews her assertion that she will remain safe in the hospital and does not have any current active suicidal plans or intent. She appears to be tolerating risperidone 2 mg qam and 5 mg hs. Will increase her dose of Risperidone to 2 mg qam and 4 mg hs. Would consider offering a trial of carbamazepine. Also, the patient would be a candidate for clozapine, although currently she tells me that she does not want to consider it. Plan (1) Paranoid schizophrenia 1. Safety - inpatient is least restrictive and most appropriate setting for care due to ongoing AH prompting SI with plan, disorganization and paranoid delusions of others harming her resulting in statement "I am going to be violent" and limited ability to care for self in this disorganized state - milieu, group therapy, and while still verbalizing thoughts of violence Medically necessary private room 2. Medications - Risperdal 1mg/hs with 0.5mg po tid prn watching for orthostasis, and sedation , 10/19/16 will get FBS and Fasting lipids; watch tachycardia may be agitation of psychosis but could be SE or risperdal - change klonopin to prn ativan for severe agitation due to shorter half life and need to monitor sedation 3. Obtain prior records from [place] to learn about past med trials, efficacy and side effects, if risperdal is efficatious consider Consta or Invega to foster compliance if no contraindications and accessible 10/19 - Increase Risperdal to 1 mg. AM and 1.5 mg. HS - Obtain supplemental from family 10/20 - Continue current meds - work toward an BNAKS 10/21 - Increase Risperidone to 2 mg PO qAM and 3 mg HS 10/22 - Some improvement in the that auditory and visual hallucinations seem less intrusive. However, she seems to have acted out when her breakfast tray was delivered later than she expected by calling 911 and telling the truckload owner operator that we are "starving her." We were able to process that in our session. - Increase risperidone to 2 mg qam and 4 mg HS. (2) Obesity - obtain fasting lipids and blood sugar - monitor and consider metformin to offset weight gain of AAP - encourage physical activity as tolerated to reduce risk of gain Discharge / Aftercare Planning Primary Care Physician: Name: Unknown Therapist: Name: Unknown Artificial Glass Eye Maker: Name: Unknown Visit Code E&M Code: 82811 Inventory Assets Strengths: voluntary for admission, supportive family (allbeit geographically ), locked unit Needs: assurance of aftercare and treatment plan to foster compliance clarification of her job and housing status Risk Factors Assessment : No /single/: Yes Higher / Fall in social status: No Health problems: No Mental Health Diagnoses: Yes Substance use disorders: No Previous attempt: Yes Previous attempt; planned: No Previous attempt; didn't tell: Yes Family history of suicide: No Previous psychiatric stay: Yes Hopelessness: Yes Smoker: No Protective Factors Assessment Bahai beliefs: Yes : No Responsible for young children: No Employed: No Stable relationships: No Supportive family: Yes Good rapport with provider: No Absence of risk factors above: No Data Vital Signs Last 24 Hrs: Date Time Temp Pulse Resp B/P (MAP) Pulse Ox O2 Delivery O2 Flow Rate FiO2 10/22/16 06:53 36.6 109 20 121/85 Meds Administered Last 24 Hrs: Meds Administered (Past 24Hrs) Medications (Trade) Dose Ordered Sig/Stacey Route Start Time Stop Time Status Last Admin Dose Admin Risperidone (Risperdal Tab) 2 mg QAM PO 10/22/16 09:00 11/21/16 08:59 10/22/16 09:01 2 MG Risperidone (Risperdal Tab) 3 mg HS PO 10/21/16 22:00 11/20/16 21:59 10/21/16 21:46 3 MG Problem Qualifiers (1) Obesity: Obesity type: due to excess calories
[2016-10-22] MEDS: ACETAMINOPHEN 325 MG TAB PO PRN (14:19)
[2016-10-22] MEDS: RISPERIDONE ODT 0.5MG PO PRN (14:45)
[2016-10-23 07:00] VITALS: BP 127/88; PULSE 103; TEMP 36.8
[2016-10-23] MEDS: HYDROCHLOROTHIAZIDE 25 MG TAB PO SCH (08:17)
[2016-10-23] MEDS: RISPERIDONE 2 MG TAB PO SCH ×2 (08:17→21:05)
--- NOTE | 2016-10-23 10:19 | Psych Management Progress Note ---
Psychiatry Miscellaneous Date of Service: Oct 23, 2016. Patient seen, MS assessed. Patient is unable to rate mood and did not attend community meeting. Affect blunted and seems internally preoccupied. Encouraged cooperation with care and treatment plan as outlined by WILDLIFE REFUGE MANAGER.
--- NOTE | 2016-10-23 11:17 | Psychiatric Progress Notes ---
Progress Note Date of Service Oct 23, 2016. Interval History 41 yo female admitted voluntarily on 10/18/16 with an acute exacerbation of paranoid schizophrenia after being off of her medications. Chief Complaint "OK". Subjective Patient was seen & assessed interval progress reviewed with Treatment Team. The patient is again in her room when seen. She says that she is doing all right and feels that she is getting better. She rates her mood a 3 out of 10 and denies acute suicidal thinking today. Her hallucinations continue and she describes looking at people and seeing zombies and people. She says that she begins to look at somebody and they appear normal and then may begin to distort. She also continues to hear voices "that sound like they're hungry and want to eat me". She says that she sees people with point he ears holding knives as well. Staff report that the patient has been excessively hungry, eating excessively to the point that they have had to lock up the food in the common areas. She says that she feels safe in here but not outside and when asked to clarify this she says she still wants to get a gun in order to protect herself after discharge. She initially denies that the gun is to be used for suicide but then later changes her mind and says that life is not easy and that it would be easier to be . She indicates that she cannot be around other people here as it "stresses me out" and has not been able to go to more than one group or so. She denies side effects to medications other than some sedation. Review of Systems Constitutional: + fatigue ENT: No hearing loss, No unusual epistaxis, No nasal symptoms, No sore throat, No tinnitus, No dental problems, No trouble swallowing, No problem reported Respiratory: No cough, No sputum, No wheezing, No shortness of breath, No dyspnea on exertion, No dyspnea at rest, No hemoptysis, No problem reported Cardiovascular: No chest pain, No orthopnea, No PND, No edema, No claudication , No palpitations, No problem reported Abdomen: + problem reported (increase in appetite) Musculoskeletal: No joint pain, No muscle pain, No swelling, No calf pain, No problem reported Neurologic: No memory loss, No paralysis, No weakness, No numbness/tingling, No vertigo, No balance problems, No problem reported Psychiatric: + depression symptoms, + problem reported (auditory and visual hallucinations) Integumentary: No rash, No itch, No new/changing skin lesions, No color change , No bleeding, No problem reported Medication Side Effects: Sedation Sleep Information Total Hours of Sleep: 6.75 Meal Information Percent of Breakfast Consumed: 100 Percent of Lunch Consumed: 100 Percent of Dinner Consumed: 100 Mental Status Exam During interview pt is: alert and oriented, guarded Appearance: appropriately groomed Eye contact is: fair Motor behavior is: steady gait & station, no abnormal motor movements Speech: normal in rate, rhythm & volume, other (the patient is more fully verbal today, and speak spontaneously about her various ears and the sources of her current distress.) Affect: flat, anxious Mood is: anxious Thought process: goal directed, looseness of associations Thought content: preoccupation, paranoid (feeling others are trying to hurt her , eat her), delusions (beleiving others are trying to kill her and eat her with no reality testing), persecution Suicidal thought are: present Homicidal thoughts are: denied Hallucinations: auditory, visual Cognition: memory grossly intact, language grossly intact Intelligence estimated to be: average Insight: poor, severely impaired Judgement: poor, severely impaired Impression The patient continues to be psychotic with both auditory and visual hallucinations. She is tolerating the slow escalation of Risperdal and as of yesterday was increased to 2 mg in the morning and 4 mg at bedtime. She remains isolative, feeling unable to tolerate being around other people. Today I have encouraged her to at least try to be in the community a little bit each day as lying in a quiet room by herself will only cause a focus on her psychotic symptoms. She is somewhat ambivalent about her suicidality today, initially denying it but then saying that her life was not worth living. She clearly remains at high risk. Ideally we would like to see her on a long acting injectable for medication compliance moving forward. Nursing staff reports that her sister Luda in [place] is exploring long-term treatment options in that area so that she can be close to family. Today we will continue her current dose of medications, continue to assist her with reality testing. Plan (1) Paranoid schizophrenia 1. Safety - inpatient is least restrictive and most appropriate setting for care due to ongoing AH prompting SI with plan, disorganization and paranoid delusions of others harming her resulting in statement "I am going to be violent" and limited ability to care for self in this disorganized state - milieu, group therapy, and while still verbalizing thoughts of violence Medically necessary private room 2. Medications - Risperdal 1mg/hs with 0.5mg po tid prn watching for orthostasis, and sedation , 10/19/16 will get FBS and Fasting lipids; watch tachycardia may be agitation of psychosis but could be SE or risperdal - change klonopin to prn ativan for severe agitation due to shorter half life and need to monitor sedation 3. Obtain prior records from [facility] to learn about past med trials, efficacy and side effects, if risperdal is efficatious consider Consta or Invega to foster compliance if no contraindications and accessible 10/19 - Increase Risperdal to 1 mg. AM and 1.5 mg. HS - Obtain supplemental from family 10/20 - Continue current meds - work toward an [facility] 10/21 - Increase Risperidone to 2 mg PO qAM and 3 mg HS 10/22 - Some improvement in the that auditory and visual hallucinations seem less intrusive. However, she seems to have acted out when her breakfast tray was delivered later than she expected by calling 911 and telling the plant operator that we are "starving her." We were able to process that in our session. - Increase risperidone to 2 mg qam and 4 mg HS. 10/23 -Continue current medications -Assist with reality orientation (2) Obesity - obtain fasting lipids and blood sugar - monitor and consider metformin to offset weight gain of AAP - encourage physical activity as tolerated to reduce risk of gain 10/23 -The patient is eating to excess, necessitating that the staff lockup food in the common areas. She is eating 100% of all 3 meals plus snacks. Discharge / Aftercare Planning Primary Care Physician: Name: Unknown Therapist: Name: Unknown Transmission Builder: Name: Unknown Visit Code E&M Code: 73859 Inventory Assets Strengths: voluntary for admission, supportive family (allbeit geographically ), locked unit Needs: assurance of aftercare and treatment plan to foster compliance clarification of her job and housing status Risk Factors Assessment : No /single/: Yes Higher / Fall in social status: No Health problems: No Mental Health Diagnoses: Yes Substance use disorders: No Previous attempt: Yes Previous attempt; planned: No Previous attempt; didn't tell: Yes Family history of suicide: No Previous psychiatric stay: Yes Hopelessness: Yes Smoker: No Protective Factors Assessment Anabaptist beliefs: Yes : No Responsible for young children: No Employed: No Stable relationships: No Supportive family: Yes Good rapport with provider: No Absence of risk factors above: No Data Vital Signs Last 24 Hrs: Date Time Temp Pulse Resp B/P (MAP) Pulse Ox O2 Delivery O2 Flow Rate FiO2 10/23/16 07:00 36.8 103 18 127/88 Meds Administered Last 24 Hrs: Meds Administered (Past 24Hrs) Medications (Trade) Dose Ordered Sig/Stacey Route Start Time Stop Time Status Last Admin Dose Admin Risperidone (Risperdal Tab) 2 mg QAM PO 10/22/16 09:00 11/21/16 08:59 10/23/16 08:17 2 MG Risperidone (Risperdal Tab) 3 mg HS PO 10/21/16 22:00 10/22/16 10:19 DC 10/21/16 21:46 3 MG Risperidone (Risperdal Tab) 4 mg HS PO 10/22/16 22:00 11/21/16 21:59 10/22/16 21:46 4 MG Lab Results Last 24 Hrs: 10/17/16 11:57 Red Blood Count 4.55, Mean Corpuscular Volume 80.0, Mean Corpuscular Hemoglobin 26.4, Mean Corpuscular Hemoglobin Concent 33.0, Mean Platelet Volume 8.9, Neutrophils (%) (Auto) 62.4, Lymphocytes (%) (Auto) 26.6, Monocytes (%) (Auto) 8.9, Eosinophils (%) (Auto) 1.6, Basophils (%) (Auto) 0.4, Neutrophils # (Auto) 4.41, Lymphocytes # (Auto) 1.88, Monocytes # (Auto) 0.63, Eosinophils # (Auto) 0.11, Basophils # (Auto) 0.03 10/17/16 11:57 Test 10/17/16 11:00 10/17/16 11:57 10/19/16 06:10 Urine Color YELLOW Urine Appearance CLEAR (CLEAR) Urine pH 6.5 (4.5-7.5) Urine Specific [place] 1.017 (1.000-1.030) Urine Protein NEG (NEG) Urine Glucose (UA) NEG (NEG) Urine Ketones NEG (NEG) Urine Occult Blood TRACE (NEG) Urine Nitrite NEG (NEG) Urine Bilirubin NEG (NEG) Urine Urobilinogen NEG (NEG) Urine Leukocyte Esterase NEG (NEG) Urine WBC (Auto) 1-5 /hpf (0-5) Urine RBC (Auto) 0-4 /hpf (0-4) Urine Hyaline Casts (Auto) 1-5 /lpf (0-5) Urine Epithelial Cells (Auto) >30 /lpf (0-5) Urine Bacteria (Auto) 1+ (NEG) Urine Test NEG (NEG) Urine Synthetic Stimulants see note Urine Opiates Screen NEG (NEG) Urine Methadone, Qualitative NEG (NEG) Urine Barbiturates NEG (NEG) Urine Phencyclidine (PCP) Level NEG (NEG) Ur Amphetamine/Methamphetamine NEG (NEG) MDMA (Ecstasy) Screen NEG (NEG) Urine Benzodiazepines Screen NEG (NEG) Urine Cocaine Metabolite NEG (NEG) Cannabinoids Comment see note Urine Synthetic Cannabinoids NEGATIVE (Negative) Ur Synthetic Cannabinoids Confirm (()) Urine Marijuana (THC) NEG (NEG) White Blood Count 7.07 K/uL (4.8-10.8) Red Blood Count 4.55 M/uL (4.2-5.4) Hemoglobin 12.0 g/dL (12.0-16.0) Hematocrit 36.4 % (37-47) Mean Corpuscular Volume 80.0 fL (80-100) Mean Corpuscular Hemoglobin 26.4 pg (25-34) Mean Corpuscular Hemoglobin Concent 33.0 g/dl (32-36) Platelet Count 299 K/uL (130-400) Mean Platelet Volume 8.9 fL (7.4-10.4) Neutrophils (%) (Auto) 62.4 % Lymphocytes (%) (Auto) 26.6 % Monocytes (%) (Auto) 8.9 % Eosinophils (%) (Auto) 1.6 % Basophils (%) (Auto) 0.4 % Neutrophils # (Auto) 4.41 K/uL (1.4-6.5) Lymphocytes # (Auto) 1.88 K/uL (1.2-3.4) Monocytes # (Auto) 0.63 K/uL (0.11-0.59) Eosinophils # (Auto) 0.11 K/uL (0-0.5) Basophils # (Auto) 0.03 K/uL (0-0.2) RDW Standard Deviation 44.9 fL (36.4-46.3) RDW Coefficient of Variation 15.4 % (11.5-14.5) Immature Granulocyte % (Auto) 0.1 % Immature Granulocyte # (Auto) 0.01 K/uL (0.00-0.02) Anion Gap 7.0 mmol/L (3-11) Est Creatinine Clear Calc Drug Dose 98.7 ml/min Estimated GFR () 86.2 Estimated GFR (Non- 74.4 BUN/Creatinine Ratio 10.0 (10-20) Calcium Level 8.6 mg/dl (8.5-10.1) Total Bilirubin 0.3 mg/dl (0.2-1) Aspartate Amino Transf (AST/SGOT) 25 U/L (15-37) Alanine Aminotransferase (ALT/SGPT) 50 U/L (12-78) Alkaline Phosphatase 83 U/L (45-117) Total Protein 7.0 gm/dl (6.4-8.2) Albumin 3.3 gm/dl (3.4-5.0) Globulin 3.7 gm/dl (2.5-4.0) Albumin/Globulin Ratio 0.9 (0.9-2) Thyroid Stimulating Hormone (TSH) 0.641 uIu/ml (0.300-4.500) Salicylates Level < 1.7 mg/dl (2.8-20) Acetaminophen Level < 2 ug/ml (10-30) Ethyl Alcohol mg/dL < 3.0 mg/dl (0-3) Fasting Glucose 100 mg/dl (70-99) Triglycerides Level 125 mg/dl (0-150) Cholesterol Level 166 mg/dl (0-200) HDL Cholesterol 47 mg/dl LDL Cholesterol, Calculated 94 mg/dl VLDL Cholesterol, Calculated 25 mg/dl Cholesterol/HDL Ratio 3.5 Date/Time Source Procedure Growth Status 10/17/16 11:00 Urine , Clean Catch Urine Culture - Final THREE TYPES OF ORGANISMS PRESENT, ALL... Complete Problem Qualifiers (1) Obesity: Obesity type: due to excess calories
[2016-10-23] MEDS: RISPERIDONE ODT 0.5MG PO PRN (12:08)
[2016-10-23] MEDS: ACETAMINOPHEN 325 MG TAB PO PRN (18:04)
[2016-10-23] MEDS: IBUPROFEN 600 MG TAB PO PRN (19:55)
[2016-10-24] MEDS: ALUMINUM/MAGNESIUM SUSP 30 ML UDC PO PRN (06:41)
[2016-10-24 06:53] VITALS: BP_SYST 120; BP_SYST 136; BP_DIAS 78; BP_DIAS 88; PULSE 125; PULSE 98; TEMP 36.8
[2016-10-24] MEDS: HYDROCHLOROTHIAZIDE 25 MG TAB PO SCH (09:03)
[2016-10-24] MEDS: RISPERIDONE 2 MG TAB PO SCH (09:04)
[2016-10-24] MEDS: RISPERIDONE ODT 0.5MG PO PRN (09:15)
[2016-10-24] MEDS ORDERED: CLONAZEPAM 1 MG TAB PO ONE (10:10)
--- NOTE | 2016-10-24 10:11 | Psychiatric Progress Notes ---
Progress Note Date of Service Oct 24, 2016. Interval History 41 yo female admitted voluntarily on 10/18/16 with an acute exacerbation of paranoid schizophrenia after being off of her medications. Chief Complaint "I'm still afraid around people.". Subjective Patient was seen & assessed interval progress reviewed with Treatment Team. The patient is dressed and going to attend community meeting this AM which is an improvement. She continues to report hallucinations, seeing people as Zombies and believing that they want to eat her. She reports voices, but will only say that "they sound hungry". She has written on her forearms with a pen, saying that she believes will "salas off evil". She fears people will hurt her and gave an example that she was sitting in the dayroom watching TV and a peer walked in. She thought he would hurt her and she fled to her room. She does not like being around others, becoming afraid and so spends a great deal of time in her room listening to music. Her anxiety is high, making her have chest tightness and SOB. "It just never changes.". Her mood remains depressed Review of Systems Medication Side Effects: Sedation Sleep Information Total Hours of Sleep: 6.50 Meal Information Percent of Breakfast Consumed: 100 Percent of Lunch Consumed: 100 Percent of Dinner Consumed: 100 Mental Status Exam During interview pt is: alert and oriented, guarded Appearance: appropriately groomed Eye contact is: fair Motor behavior is: steady gait & station, no abnormal motor movements Speech: normal in rate, rhythm & volume, other (the patient is more fully verbal today, and speak spontaneously about her various ears and the sources of her current distress.) Affect: flat, anxious Mood is: anxious Thought process: goal directed, looseness of associations Thought content: preoccupation, paranoid (feeling others are trying to hurt her , eat her), delusions (beleiving others are trying to kill her and eat her with no reality testing), persecution Suicidal thought are: present Homicidal thoughts are: denied Hallucinations: auditory, visual Cognition: memory grossly intact, language grossly intact Intelligence estimated to be: average Insight: poor, severely impaired Judgement: poor, severely impaired Impression The patient remains psychotic with both aud and vis hallucinations. Her anxiety remains high when around others, fearing she will be harmed. Today we will increase Risperdal to 7 mg daily and add Klonopin 1 mg. Q AM to target anxiety. She agrees to these med changes. I have had a phone conversation with her sister Luda ([phone]). Luda is continuing to explore services in her area, [facility], in order to be able to support her sister. I answered her questions about diagnosis, treatment and condition. She says that historically, Colette has not been willing to acknowledge that she has a mental illness and has refused to attend meetings or obtain services that she was willing to stick with. Colette has worked in crisis mode, relying on others until support is withdrawn and then ending up in the hospital. Luda is in favor of an [facility]. She is making phone calls to better understand how Colette can establish residency in [facility], in order to move there and have services. Luda has no financial resources to provide to Colette, and no other family members are willing to extend themselves at this time. Plan (1) Paranoid schizophrenia 1. Safety - inpatient is least restrictive and most appropriate setting for care due to ongoing AH prompting SI with plan, disorganization and paranoid delusions of others harming her resulting in statement "I am going to be violent" and limited ability to care for self in this disorganized state - milieu, group therapy, and while still verbalizing thoughts of violence Medically necessary private room 2. Medications - Risperdal 1mg/hs with 0.5mg po tid prn watching for orthostasis, and sedation , 10/19/16 will get FBS and Fasting lipids; watch tachycardia may be agitation of psychosis but could be SE or risperdal - change klonopin to prn ativan for severe agitation due to shorter half life and need to monitor sedation 3. Obtain prior records from [facility] to learn about past med trials, efficacy and side effects, if risperdal is efficatious consider Consta or Invega to foster compliance if no contraindications and accessible 10/19 - Increase Risperdal to 1 mg. AM and 1.5 mg. HS - Obtain supplemental from family 10/20 - Continue current meds - work toward an [facility] 10/21 - Increase Risperidone to 2 mg PO qAM and 3 mg HS 10/22 - Some improvement in the that auditory and visual hallucinations seem less intrusive. However, she seems to have acted out when her breakfast tray was delivered later than she expected by calling 911 and telling the orange peel operator that we are "starving her." We were able to process that in our session. - Increase risperidone to 2 mg qam and 4 mg HS. 10/23 -Continue current medications -Assist with reality orientation 10/24 - Increase Risperdal to 2 mg. AM and 5 mg HS - Add Klonopin 1 mg. AM - Phone conversation with sister Luda (2) Obesity - obtain fasting lipids and blood sugar - monitor and consider metformin to offset weight gain of AAP - encourage physical activity as tolerated to reduce risk of gain 10/23 -The patient is eating to excess, necessitating that the staff lockup food in the common areas. She is eating 100% of all 3 meals plus snacks. Discharge / Aftercare Planning Primary Care Physician: Name: Unknown Therapist: Name: Unknown Note Keeper: Name: Unknown Visit Code E&M Code: 39968 Inventory Assets Strengths: voluntary for admission, supportive family (allbeit geographically ), locked unit Needs: assurance of aftercare and treatment plan to foster compliance clarification of her job and housing status Risk Factors Assessment : No /single/: Yes Higher / Fall in social status: No Health problems: No Mental Health Diagnoses: Yes Substance use disorders: No Previous attempt: Yes Previous attempt; planned: No Previous attempt; didn't tell: Yes Family history of suicide: No Previous psychiatric stay: Yes Hopelessness: Yes Smoker: No Protective Factors Assessment Faith beliefs: Yes : No Responsible for young children: No Employed: No Stable relationships: No Supportive family: Yes Good rapport with provider: No Absence of risk factors above: No Data Vital Signs Last 24 Hrs: Date Time Temp Pulse Resp B/P (MAP) Pulse Ox O2 Delivery O2 Flow Rate FiO2 10/24/16 06:53 36.8 98 18 136/88 125 120/78 Meds Administered Last 24 Hrs: Meds Administered (Past 24Hrs) Medications (Trade) Dose Ordered Sig/Stacey Route Start Time Stop Time Status Last Admin Dose Admin Risperidone (Risperdal Tab) 4 mg HS PO 10/22/16 22:00 11/21/16 21:59 10/23/16 21:05 4 MG Ibuprofen (Motrin Tab) 600 mg TID PRN PO 10/23/16 19:30 11/22/16 19:29 10/23/16 19:55 600 MG Lab Results Last 24 Hrs: 10/17/16 11:57 Red Blood Count 4.55, Mean Corpuscular Volume 80.0, Mean Corpuscular Hemoglobin 26.4, Mean Corpuscular Hemoglobin Concent 33.0, Mean Platelet Volume 8.9, Neutrophils (%) (Auto) 62.4, Lymphocytes (%) (Auto) 26.6, Monocytes (%) (Auto) 8.9, Eosinophils (%) (Auto) 1.6, Basophils (%) (Auto) 0.4, Neutrophils # (Auto) 4.41, Lymphocytes # (Auto) 1.88, Monocytes # (Auto) 0.63, Eosinophils # (Auto) 0.11, Basophils # (Auto) 0.03 10/17/16 11:57 Test 10/17/16 11:00 10/17/16 11:57 10/19/16 06:10 Urine Color YELLOW Urine Appearance CLEAR (CLEAR) Urine pH 6.5 (4.5-7.5) Urine Specific [place] 1.017 (1.000-1.030) Urine Protein NEG (NEG) Urine Glucose (UA) NEG (NEG) Urine Ketones NEG (NEG) Urine Occult Blood TRACE (NEG) Urine Nitrite NEG (NEG) Urine Bilirubin NEG (NEG) Urine Urobilinogen NEG (NEG) Urine Leukocyte Esterase NEG (NEG) Urine WBC (Auto) 1-5 /hpf (0-5) Urine RBC (Auto) 0-4 /hpf (0-4) Urine Hyaline Casts (Auto) 1-5 /lpf (0-5) Urine Epithelial Cells (Auto) >30 /lpf (0-5) Urine Bacteria (Auto) 1+ (NEG) Urine Test NEG (NEG) Urine Synthetic Stimulants see note Urine Opiates Screen NEG (NEG) Urine Methadone, Qualitative NEG (NEG) Urine Barbiturates NEG (NEG) Urine Phencyclidine (PCP) Level NEG (NEG) Ur Amphetamine/Methamphetamine NEG (NEG) MDMA (Ecstasy) Screen NEG (NEG) Urine Benzodiazepines Screen NEG (NEG) Urine Cocaine Metabolite NEG (NEG) Cannabinoids Comment see note Urine Synthetic Cannabinoids NEGATIVE (Negative) Ur Synthetic Cannabinoids Confirm (()) Urine Marijuana (THC) NEG (NEG) White Blood Count 7.07 K/uL (4.8-10.8) Red Blood Count 4.55 M/uL (4.2-5.4) Hemoglobin 12.0 g/dL (12.0-16.0) Hematocrit 36.4 % (37-47) Mean Corpuscular Volume 80.0 fL (80-100) Mean Corpuscular Hemoglobin 26.4 pg (25-34) Mean Corpuscular Hemoglobin Concent 33.0 g/dl (32-36) Platelet Count 299 K/uL (130-400) Mean Platelet Volume 8.9 fL (7.4-10.4) Neutrophils (%) (Auto) 62.4 % Lymphocytes (%) (Auto) 26.6 % Monocytes (%) (Auto) 8.9 % Eosinophils (%) (Auto) 1.6 % Basophils (%) (Auto) 0.4 % Neutrophils # (Auto) 4.41 K/uL (1.4-6.5) Lymphocytes # (Auto) 1.88 K/uL (1.2-3.4) Monocytes # (Auto) 0.63 K/uL (0.11-0.59) Eosinophils # (Auto) 0.11 K/uL (0-0.5) Basophils # (Auto) 0.03 K/uL (0-0.2) RDW Standard Deviation 44.9 fL (36.4-46.3) RDW Coefficient of Variation 15.4 % (11.5-14.5) Immature Granulocyte % (Auto) 0.1 % Immature Granulocyte # (Auto) 0.01 K/uL (0.00-0.02) Anion Gap 7.0 mmol/L (3-11) Est Creatinine Clear Calc Drug Dose 98.7 ml/min Estimated GFR () 86.2 Estimated GFR (Non- 74.4 BUN/Creatinine Ratio 10.0 (10-20) Calcium Level 8.6 mg/dl (8.5-10.1) Total Bilirubin 0.3 mg/dl (0.2-1) Aspartate Amino Transf (AST/SGOT) 25 U/L (15-37) Alanine Aminotransferase (ALT/SGPT) 50 U/L (12-78) Alkaline Phosphatase 83 U/L (45-117) Total Protein 7.0 gm/dl (6.4-8.2) Albumin 3.3 gm/dl (3.4-5.0) Globulin 3.7 gm/dl (2.5-4.0) Albumin/Globulin Ratio 0.9 (0.9-2) Thyroid Stimulating Hormone (TSH) 0.641 uIu/ml (0.300-4.500) Salicylates Level < 1.7 mg/dl (2.8-20) Acetaminophen Level < 2 ug/ml (10-30) Ethyl Alcohol mg/dL < 3.0 mg/dl (0-3) Fasting Glucose 100 mg/dl (70-99) Triglycerides Level 125 mg/dl (0-150) Cholesterol Level 166 mg/dl (0-200) HDL Cholesterol 47 mg/dl LDL Cholesterol, Calculated 94 mg/dl VLDL Cholesterol, Calculated 25 mg/dl Cholesterol/HDL Ratio 3.5 Date/Time Source Procedure Growth Status 10/17/16 11:00 Urine , Clean Catch Urine Culture - Final THREE TYPES OF ORGANISMS PRESENT, ALL... Complete Problem Qualifiers (1) Obesity: Obesity type: due to excess calories
[2016-10-24] MEDS: IBUPROFEN 600 MG TAB PO PRN (19:29)
[2016-10-24] MEDS: RISPERIDONE PO SCH ×2 (21:14)
[2016-10-24] MEDS ORDERED: RISPERIDONE 2 MG TAB PO SCH (22:00)
[2016-10-25 06:53] VITALS: BP_SYST 117; BP_DIAS 83; BP_DIAS 84; PULSE 97; PULSE 99; TEMP 36.7
[2016-10-25] MEDS: HYDROCHLOROTHIAZIDE 25 MG TAB PO SCH (08:55)
[2016-10-25] MEDS: CLONAZEPAM 1 MG TAB PO SCH (08:56)
[2016-10-25] MEDS: RISPERIDONE 2 MG TAB PO SCH (08:56)
--- NOTE | 2016-10-25 13:09 | Psychiatric Progress Notes ---
Progress Note Date of Service Oct 25, 2016. Interval History 41 yo female admitted voluntarily on 10/18/16 with an acute exacerbation of paranoid schizophrenia after being off of her medications. Chief Complaint "I had to lock myself in last night. ". Subjective Patient was seen & assessed interval progress reviewed with Treatment Team. She says that she is not having hallucinations today, but on slot shift manager was fearful for her safety and wanted to lock herself in her room. she is also delusional saying that the staff are not feeding her and at one point was trying to leave to go find food. She eats 100% of all 3 meals, plus snacks. She says that the Klonopin started yesterday has been helpful in reducing anxiety, but nights are bad and she believes that it is certain staff that refuse to feed her. She asking that the peanut allergy be removed so that she can get peanut butter. She says she eats peanuts all the time, but that almonds make her tongue itchy. Staff report that she continues to isolate in her room, but does at times come to the dayroom and attended community meeting yesterday. We discuss my phone contact with her sister Luda yesterday and Colette seems interested in going to [facility] to be closer to Luda. Denies side effects to meds other than fatigue. Review of Systems Constitutional: + fatigue ENT: No hearing loss, No unusual epistaxis, No nasal symptoms, No sore throat, No tinnitus, No dental problems, No trouble swallowing, No problem reported Respiratory: No cough, No sputum, No wheezing, No shortness of breath, No dyspnea on exertion, No dyspnea at rest, No hemoptysis, No problem reported Cardiovascular: No chest pain, No orthopnea, No PND, No edema, No claudication , No palpitations, No problem reported Abdomen: + problem reported (feels hungry and believes staff are not feeding her) Musculoskeletal: No joint pain, No muscle pain, No swelling, No calf pain, No problem reported Neurologic: No memory loss, No paralysis, No weakness, No numbness/tingling, No vertigo, No balance problems, No problem reported Psychiatric: + depression symptoms (with delusions) Integumentary: No rash, No itch, No new/changing skin lesions, No color change , No bleeding, No problem reported Medication Side Effects: Sedation Sleep Information Total Hours of Sleep: 8.75 Meal Information Percent of Breakfast Consumed: 100 Percent of Lunch Consumed: 100 Percent of Dinner Consumed: 100 Mental Status Exam During interview pt is: alert and oriented, guarded Appearance: appropriately groomed (dressed in hospital gowns) Eye contact is: fair Motor behavior is: steady gait & station, no abnormal motor movements Speech: normal in rate, rhythm & volume Affect: flat, anxious Mood is: anxious Thought process: goal directed Thought content: preoccupation, paranoid (feeling others are trying to hurt her , eat her), delusions (beleiving others are trying to kill her and eat her with no reality testing), persecution Suicidal thought are: denied Homicidal thoughts are: denied Hallucinations: denies auditory, denies visual Cognition: memory grossly intact, language grossly intact Intelligence estimated to be: average Insight: severely impaired Judgement: severely impaired Impression No hallucinations today, but delusional believing that we are not feeding her ( eating all meals plus snacks). Still fearful of peers in the community. Is tolerating titration of risperdal and addition of klonopin so will continue doses for today. Will continue to assist with reality testing, coordinate with family about getting her to [facility] and work toward a long acting injectable, that so far she has been refusing to consider. Plan (1) Paranoid schizophrenia 1. Safety - inpatient is least restrictive and most appropriate setting for care due to ongoing AH prompting SI with plan, disorganization and paranoid delusions of others harming her resulting in statement "I am going to be violent" and limited ability to care for self in this disorganized state - milieu, group therapy, and while still verbalizing thoughts of violence Medically necessary private room 2. Medications - Risperdal 1mg/hs with 0.5mg po tid prn watching for orthostasis, and sedation , 10/19/16 will get FBS and Fasting lipids; watch tachycardia may be agitation of psychosis but could be SE or risperdal - change klonopin to prn ativan for severe agitation due to shorter half life and need to monitor sedation 3. Obtain prior records from [place] to learn about past med trials, efficacy and side effects, if risperdal is efficatious consider Consta or Invega to foster compliance if no contraindications and accessible 10/19 - Increase Risperdal to 1 mg. AM and 1.5 mg. HS - Obtain supplemental from family 10/20 - Continue current meds - work toward an BANKS 10/21 - Increase Risperidone to 2 mg PO qAM and 3 mg HS 10/22 - Some improvement in the that auditory and visual hallucinations seem less intrusive. However, she seems to have acted out when her breakfast tray was delivered later than she expected by calling 911 and telling the hydraulic oil tool operator that we are "starving her." We were able to process that in our session. - Increase risperidone to 2 mg qam and 4 mg HS. 10/23 -Continue current medications -Assist with reality orientation 10/24 - Increase Risperdal to 2 mg. AM and 5 mg HS - Add Klonopin 1 mg. AM - Phone conversation with sister Luda 10/25 - Continue current meds (2) Obesity - obtain fasting lipids and blood sugar - monitor and consider metformin to offset weight gain of AAP - encourage physical activity as tolerated to reduce risk of gain 10/23 -The patient is eating to excess, necessitating that the staff lockup food in the common areas. She is eating 100% of all 3 meals plus snacks. Discharge / Aftercare Planning Primary Care Physician: Name: Unknown Therapist: Name: Unknown Basket Mender: Name: Unknown Visit Code E&M Code: 07542 Inventory Assets Strengths: voluntary for admission, supportive family (allbeit geographically ), locked unit Needs: assurance of aftercare and treatment plan to foster compliance clarification of her job and housing status Risk Factors Assessment : No /single/: Yes Higher / Fall in social status: No Health problems: No Mental Health Diagnoses: Yes Substance use disorders: No Previous attempt: Yes Previous attempt; planned: No Previous attempt; didn't tell: Yes Family history of suicide: No Previous psychiatric stay: Yes Hopelessness: Yes Smoker: No Protective Factors Assessment Episcopalian beliefs: Yes : No Responsible for young children: No Employed: No Stable relationships: No Supportive family: Yes Good rapport with provider: No Absence of risk factors above: No Data Vital Signs Last 24 Hrs: Date Time Temp Pulse Resp B/P (MAP) Pulse Ox O2 Delivery O2 Flow Rate FiO2 10/25/16 06:53 36.7 97 18 117/84 99 117/83 Meds Administered Last 24 Hrs: Meds Administered (Past 24Hrs) Medications (Trade) Dose Ordered Sig/Stacey Route Start Time Stop Time Status Last Admin Dose Admin Ibuprofen (Motrin Tab) 600 mg TID PRN PO 10/23/16 19:30 11/22/16 19:29 10/24/16 19:29 600 MG Clonazepam (Klonopin Tab) 1 mg QAM PO 10/25/16 09:00 11/24/16 08:59 10/25/16 08:56 1 MG Clonazepam (Klonopin Tab) 1 mg 1010 ONCE PO 10/24/16 10:10 10/24/16 10:15 DC 10/24/16 10:21 1 MG Risperidone (Risperdal Tab) 5 mg HS PO 10/24/16 22:00 11/23/16 21:59 10/24/16 21:14 5 MG Lab Results Last 24 Hrs: 10/17/16 11:57 Red Blood Count 4.55, Mean Corpuscular Volume 80.0, Mean Corpuscular Hemoglobin 26.4, Mean Corpuscular Hemoglobin Concent 33.0, Mean Platelet Volume 8.9, Neutrophils (%) (Auto) 62.4, Lymphocytes (%) (Auto) 26.6, Monocytes (%) (Auto) 8.9, Eosinophils (%) (Auto) 1.6, Basophils (%) (Auto) 0.4, Neutrophils # (Auto) 4.41, Lymphocytes # (Auto) 1.88, Monocytes # (Auto) 0.63, Eosinophils # (Auto) 0.11, Basophils # (Auto) 0.03 10/17/16 11:57 Test 10/17/16 11:00 10/17/16 11:57 10/19/16 06:10 Urine Color YELLOW Urine Appearance CLEAR (CLEAR) Urine pH 6.5 (4.5-7.5) Urine Specific [place] 1.017 (1.000-1.030) Urine Protein NEG (NEG) Urine Glucose (UA) NEG (NEG) Urine Ketones NEG (NEG) Urine Occult Blood TRACE (NEG) Urine Nitrite NEG (NEG) Urine Bilirubin NEG (NEG) Urine Urobilinogen NEG (NEG) Urine Leukocyte Esterase NEG (NEG) Urine WBC (Auto) 1-5 /hpf (0-5) Urine RBC (Auto) 0-4 /hpf (0-4) Urine Hyaline Casts (Auto) 1-5 /lpf (0-5) Urine Epithelial Cells (Auto) >30 /lpf (0-5) Urine Bacteria (Auto) 1+ (NEG) Urine Test NEG (NEG) Urine Synthetic Stimulants see note Urine Opiates Screen NEG (NEG) Urine Methadone, Qualitative NEG (NEG) Urine Barbiturates NEG (NEG) Urine Phencyclidine (PCP) Level NEG (NEG) Ur Amphetamine/Methamphetamine NEG (NEG) MDMA (Ecstasy) Screen NEG (NEG) Urine Benzodiazepines Screen NEG (NEG) Urine Cocaine Metabolite NEG (NEG) Cannabinoids Comment see note Urine Synthetic Cannabinoids NEGATIVE (Negative) Ur Synthetic Cannabinoids Confirm (()) Urine Marijuana (THC) NEG (NEG) White Blood Count 7.07 K/uL (4.8-10.8) Red Blood Count 4.55 M/uL (4.2-5.4) Hemoglobin 12.0 g/dL (12.0-16.0) Hematocrit 36.4 % (37-47) Mean Corpuscular Volume 80.0 fL (80-100) Mean Corpuscular Hemoglobin 26.4 pg (25-34) Mean Corpuscular Hemoglobin Concent 33.0 g/dl (32-36) Platelet Count 299 K/uL (130-400) Mean Platelet Volume 8.9 fL (7.4-10.4) Neutrophils (%) (Auto) 62.4 % Lymphocytes (%) (Auto) 26.6 % Monocytes (%) (Auto) 8.9 % Eosinophils (%) (Auto) 1.6 % Basophils (%) (Auto) 0.4 % Neutrophils # (Auto) 4.41 K/uL (1.4-6.5) Lymphocytes # (Auto) 1.88 K/uL (1.2-3.4) Monocytes # (Auto) 0.63 K/uL (0.11-0.59) Eosinophils # (Auto) 0.11 K/uL (0-0.5) Basophils # (Auto) 0.03 K/uL (0-0.2) RDW Standard Deviation 44.9 fL (36.4-46.3) RDW Coefficient of Variation 15.4 % (11.5-14.5) Immature Granulocyte % (Auto) 0.1 % Immature Granulocyte # (Auto) 0.01 K/uL (0.00-0.02) Anion Gap 7.0 mmol/L (3-11) Est Creatinine Clear Calc Drug Dose 98.7 ml/min Estimated GFR () 86.2 Estimated GFR (Non- 74.4 BUN/Creatinine Ratio 10.0 (10-20) Calcium Level 8.6 mg/dl (8.5-10.1) Total Bilirubin 0.3 mg/dl (0.2-1) Aspartate Amino Transf (AST/SGOT) 25 U/L (15-37) Alanine Aminotransferase (ALT/SGPT) 50 U/L (12-78) Alkaline Phosphatase 83 U/L (45-117) Total Protein 7.0 gm/dl (6.4-8.2) Albumin 3.3 gm/dl (3.4-5.0) Globulin 3.7 gm/dl (2.5-4.0) Albumin/Globulin Ratio 0.9 (0.9-2) Thyroid Stimulating Hormone (TSH) 0.641 uIu/ml (0.300-4.500) Salicylates Level < 1.7 mg/dl (2.8-20) Acetaminophen Level < 2 ug/ml (10-30) Ethyl Alcohol mg/dL < 3.0 mg/dl (0-3) Fasting Glucose 100 mg/dl (70-99) Triglycerides Level 125 mg/dl (0-150) Cholesterol Level 166 mg/dl (0-200) HDL Cholesterol 47 mg/dl LDL Cholesterol, Calculated 94 mg/dl VLDL Cholesterol, Calculated 25 mg/dl Cholesterol/HDL Ratio 3.5 Date/Time Source Procedure Growth Status 10/17/16 11:00 Urine , Clean Catch Urine Culture - Final THREE TYPES OF ORGANISMS PRESENT, ALL... Complete Problem Qualifiers (1) Obesity: Obesity type: due to excess calories
[2016-10-25] MEDS: IBUPROFEN 600 MG TAB PO PRN ×2 (13:55→18:34)
[2016-10-25] MEDS: RISPERIDONE PO SCH ×2 (21:09)
[2016-10-25] MEDS: LORAZEPAM 1 MG TAB PO PRN (21:29)
[2016-10-26 06:54] VITALS: BP_SYST 108; BP_SYST 117; BP_DIAS 71; BP_DIAS 82; PULSE 103; PULSE 104; TEMP 36.3
--- NOTE | 2016-10-26 07:49 | Psychiatric Progress Notes ---
Progress Note Date of Service Oct 26, 2016. Interval History 41 yo female admitted voluntarily on 10/18/16 with an acute exacerbation of paranoid schizophrenia after being off of her medications. Chief Complaint "I have a headache on my left side of my head". Subjective Patient was seen & assessed interval progress reviewed with nursing. Staff report she remains paranoid and suspicious, requested staff's assistance in calling multiple local police offices, thinking she had criminal charges, and was difficult to reassure even when informed there were no active charges. She continues to endorse delusions of people being or zombies, talked about going into a store where everyone was a zombie and thought she might have stolen something. She was unable to reality test. She barricaded her door with a chair and told staff she was fearful "because everyone looks like zombies." She called her sister and asked her to come pick her up, saying she didn't feel safe and thinks people on the unit are . She required much reassurance and has difficulty reality testing. She is taking meds as prescribed, and got prns for pain and anxiety. She is isolating and eating meals in her room. Today, she states she has "a huge headache," and then starts talking about feeling afraid as "I'm seeing things, zombie-ism, bad people walking around eating each other. " She says people "aren't walking right, have no real form of the arms and legs , kind of wimpy looking, they look hungry." She also endorses AH of "just sounds like people are hungry," saying she can hear this on the radio, but keeps listening to it because "I like it." She is suspicious of others, "it could be anyone here, I don't want to be involved with that activity." She says she "doesn't want to be involved with that activity, it's against the law to kill anyone." She is not sure if these things are symptoms, "I just don't know. I just want to feel safe." It helps her to sleep, listen to the radio, and pray. Her family is supportive and she has been talking to them on the phone as they are 2+ hours away. Mood is "really anxious, a little scared." She did not want to take her AM Klonopin as she thinks it "messed up my whole entire visual field, couldn't see anymore." She would like to switch back to Ativan, and already got a dose this AM. She does think the risperidone is helping, as her hallucinations have decreased since admission. She wants to know if she can "play with my phone," and doesn't seem to understand when attempt explain the hospital policy about this. She admits to SI, saying she thinks about buying a gun to shoot herself, because "life's not fair." She says the only thing stopping her right now is "being in the hospital." She denies thoughts of harming others. She has been spending her time listening to the radio, watching TV, and will go to Community Meeting and to play the [employer], but doesn't want to go to any other groups, "they only ask me to go 3 times a day." "I don't like being around a lot of people, because of my hallucinations." She reports good appetite and sleep. Review of Systems Medication Side Effects: Sedation Sleep Information Total Hours of Sleep: 7.25 Meal Information Percent of Breakfast Consumed: 100 Percent of Lunch Consumed: 100 Percent of Dinner Consumed: 100 Mental Status Exam During interview pt is: alert and oriented, guarded Appearance: appropriately groomed (dressed in scrub pants and t-shirt, dark hair dyed blond, obese) Eye contact is: poor (averted gaze) Motor behavior is: steady gait & station, psychomotor agitation (restlessness) Speech: normal in rate, rhythm & volume Affect: blunted, irritable, anxious Mood is: other ("really anxious, a little scared") Thought process: goal directed Thought content: preoccupation, paranoid (feeling others are trying to hurt her , eat her), delusions (beleiving others are trying to kill her and eat her with no reality testing), persecution Suicidal thought are: denied Homicidal thoughts are: denied Hallucinations: denies auditory, denies visual Cognition: memory grossly intact, language grossly intact Intelligence estimated to be: average Insight: severely impaired Judgement: severely impaired Impression Remains psychotic, with delusions, hallucinations, and paranoia. Fearful and guarded, with little participation in treatment. Tolerating titration of risperdal but refusing further clonazepam after one dose, thinking that it affected her vision. Will continue to assist with reality testing, coordinate with family about getting her to [facility], and work toward a long acting injectable, that so far she has been refusing to consider. Meeting with sister 10/29. Plan (1) Paranoid schizophrenia 1. Safety - inpatient is least restrictive and most appropriate setting for care due to ongoing AH prompting SI with plan, disorganization and paranoid delusions of others harming her resulting in statement "I am going to be violent" and limited ability to care for self in this disorganized state - milieu, group therapy, and while still verbalizing thoughts of violence Medically necessary private room 2. Medications - Risperdal 1mg/hs with 0.5mg po tid prn watching for orthostasis, and sedation , 10/19/16 will get FBS and Fasting lipids; watch tachycardia may be agitation of psychosis but could be SE or risperdal - change klonopin to prn ativan for severe agitation due to shorter half life and need to monitor sedation 3. Obtain prior records from [employer] to learn about past med trials, efficacy and side effects, if risperdal is efficacious consider Consta or Invega to foster compliance if no contraindications and accessible 10/19 - Increase Risperdal to 1 mg. AM and 1.5 mg. HS - Obtain supplemental from family 10/20 - Continue current meds - Work toward an BANKS 10/21 - Increase Risperidone to 2 mg PO qAM and 3 mg HS 10/22 - Some improvement in the that auditory and visual hallucinations seem less intrusive. However, she seems to have acted out when her breakfast tray was delivered later than she expected by calling 911 and telling the vertical punch operator that we are "starving her." We were able to process that in our session. - Increase risperidone to 2 mg qam and 4 mg HS. 10/23 - Continue current medications - Assist with reality orientation 10/24 - Increase Risperdal to 2 mg. AM and 5 mg HS - Add Klonopin 1 mg. AM - Phone conversation with sister Luda 10/25 - Continue current meds 10/26 - Meeting with sister scheduled for 10/29 - Cont risperidone, consider need to increase dose further vs add a second antipsychotic if psychosis does not improve further - Encourage group attendance/participation/reality testing - Discontinue clonazepam as patient is refusing to take it. Continue lorazepam 1mg tid prn. (2) Obesity - obtain fasting lipids and blood sugar - monitor and consider metformin to offset weight gain of AAP - encourage physical activity as tolerated to reduce risk of gain 10/19 - FLP normal, glucose elevated 100. Will require ongoing monitoring as obese and on atypical antipsychotic. 10/23 -The patient is eating to excess, necessitating that the staff lockup food in the common areas. She is eating 100% of all 3 meals plus snacks. (3) Hypertension 10/18 - Lisinopril 25mg daily started. Will need f/u with PCP. Discharge / Aftercare Planning Primary Care Physician: Name: Unknown Therapist: Name: Unknown Gummed Tape Press Operator: Name: Unknown Visit Code E&M Code: 71553 Inventory Assets Strengths: voluntary for admission, supportive family (allbeit geographically ), locked unit Needs: assurance of aftercare and treatment plan to foster compliance clarification of her job and housing status Risk Factors Assessment : No /single/: Yes Higher / Fall in social status: No Health problems: No Mental Health Diagnoses: Yes Substance use disorders: No Previous attempt: Yes Previous attempt; planned: No Previous attempt; didn't tell: Yes Family history of suicide: No Previous psychiatric stay: Yes Hopelessness: Yes Smoker: No Protective Factors Assessment Scientologist beliefs: Yes : No Responsible for young children: No Employed: No Stable relationships: No Supportive family: Yes Good rapport with provider: No Absence of risk factors above: No Data Vital Signs Last 24 Hrs: Date Time Temp Pulse Resp B/P (MAP) Pulse Ox O2 Delivery O2 Flow Rate FiO2 10/26/16 06:54 36.3 104 18 108/71 103 117/82 Meds Administered Last 24 Hrs: Meds Administered (Past 24Hrs) Medications (Trade) Dose Ordered Sig/Stacey Route Start Time Stop Time Status Last Admin Dose Admin Clonazepam (Klonopin Tab) 1 mg QAM PO 10/25/16 09:00 11/24/16 08:59 10/25/16 08:56 1 MG Clonazepam (Klonopin Tab) 1 mg 1010 ONCE PO 10/24/16 10:10 10/24/16 10:15 DC 10/24/16 10:21 1 MG Risperidone (Risperdal Tab) 5 mg HS PO 10/24/16 22:00 11/23/16 21:59 10/25/16 21:09 5 MG Problem Qualifiers (1) Obesity: Obesity type: due to excess calories
[2016-10-26] MEDS: RISPERIDONE 2 MG TAB PO SCH (08:56)
[2016-10-26] MEDS: HYDROCHLOROTHIAZIDE 25 MG TAB PO SCH (08:56)
[2016-10-26] MEDS: CLONAZEPAM 1 MG TAB PO SCH (09:00)
[2016-10-26] MEDS: IBUPROFEN 600 MG TAB PO PRN ×2 (10:34→22:01)
[2016-10-26] MEDS: RISPERIDONE ODT 0.5MG PO PRN (16:47)
[2016-10-26] MEDS: ACETAMINOPHEN 325 MG TAB PO PRN (20:19)
[2016-10-26] MEDS: RISPERIDONE PO SCH ×2 (21:20)
[2016-10-27 06:46] VITALS: BP_SYST 115; BP_SYST 130; BP_DIAS 75; BP_DIAS 79; PULSE 97; PULSE 99; TEMP 36.3
[2016-10-27] MEDS: HYDROCHLOROTHIAZIDE 25 MG TAB PO SCH (08:32)
[2016-10-27] MEDS: RISPERIDONE 2 MG TAB PO SCH (08:32)
[2016-10-27] MEDS: IBUPROFEN 600 MG TAB PO PRN ×2 (09:02→19:03)
--- NOTE | 2016-10-27 11:03 | Psychiatric Progress Notes ---
Progress Note Date of Service Oct 27, 2016. Interval History 41 yo female admitted voluntarily on 10/18/16 with an acute exacerbation of paranoid schizophrenia after being off of her medications. Chief Complaint "Can I call my mother?". Subjective Patient was seen & assessed interval progress reviewed with Treatment Team. The patient is more anxious today because her length of stay was estimated at 6- 8 days. She is now wanting to call her mother to see if she can come to [place] and stay with her. She also thinks that her sisters are softening to the idea of letting her live with them (social worked confirmed that they are NOT willing to do so). We discussed medication compliance and she is unwilling to consider an BANKS because "I don't like shots", but acknowledges the need to stay on meds and have people who are willing to help her get to her appts. She still feels like she is seeing people as zombies and doesn't know what people have to hate each other. She also reports voices that tell her they are hungry and want to eat. She rates her mood 5/10 and says that she has not thoughts to suicide here, but says "after I leave" saying that she doesn't feel safe, comfortable or loved. She feels like people are conspiring against her, but doesn't understand why, when she knows she is safe here. Nursing reports that she has been noted to have inappropriate laughter. She is attending more groups. Review of Systems Constitutional: No fever, No chills, No sweats, No weight loss, No weakness, No fatigue, No problem reported ENT: No hearing loss, No unusual epistaxis, No nasal symptoms, No sore throat, No tinnitus, No dental problems, No trouble swallowing, No problem reported Respiratory: No cough, No sputum, No wheezing, No shortness of breath, No dyspnea on exertion, No dyspnea at rest, No hemoptysis, No problem reported Cardiovascular: No chest pain, No orthopnea, No PND, No edema, No claudication , No palpitations, No problem reported Abdomen: No pain, No nausea, No vomiting, No diarrhea, No constipation, No GI bleeding, No problem reported Musculoskeletal: No joint pain, No muscle pain, No swelling, No calf pain, No problem reported Neurologic: No memory loss, No paralysis, No weakness, No numbness/tingling, No vertigo, No balance problems, No problem reported Psychiatric: + problem reported (fearful, paranoid, hallucinating) Integumentary: No rash, No itch, No new/changing skin lesions, No color change , No bleeding, No problem reported Medication Side Effects: Sedation Sleep Information Total Hours of Sleep: 7.00 Meal Information Percent of Breakfast Consumed: 100 Percent of Lunch Consumed: 100 Percent of Dinner Consumed: 100 Mental Status Exam During interview pt is: alert and oriented, guarded Appearance: appropriately groomed Eye contact is: fair Motor behavior is: steady gait & station, psychomotor agitation (restlessness) Speech: normal in rate, rhythm & volume Affect: blunted, irritable, anxious Mood is: other (fearful, paranoid) Thought process: goal directed Thought content: paranoid (feeling others are trying to hurt her, eat her), delusions (beleiving others are trying to kill her and eat her with no reality testing), persecution Suicidal thought are: denied (while in the hospital but positive if she were to be discharged) Homicidal thoughts are: denied Hallucinations: auditory, visual Cognition: memory grossly intact, language grossly intact Intelligence estimated to be: average Insight: impaired Judgement: impaired Impression Remains psychotic, with delusions, hallucinations, and paranoia. Fearful and guarded. She is out of her room more and able to attend some groups. We have been in contact with her family and they are not able or willing to have her live with them, but sister Luda still involved enough to want to help her live near her. Homeless shelters may be our only choice for housing. She was not willing to switch to Invega today and so will increase risperdal again to 3 mg AM and 6 mg HS Plan (1) Paranoid schizophrenia 1. Safety - inpatient is least restrictive and most appropriate setting for care due to ongoing AH prompting SI with plan, disorganization and paranoid delusions of others harming her resulting in statement "I am going to be violent" and limited ability to care for self in this disorganized state - milieu, group therapy, and while still verbalizing thoughts of violence Medically necessary private room 2. Medications - Risperdal 1mg/hs with 0.5mg po tid prn watching for orthostasis, and sedation , 10/19/16 will get FBS and Fasting lipids; watch tachycardia may be agitation of psychosis but could be SE or risperdal - change klonopin to prn ativan for severe agitation due to shorter half life and need to monitor sedation 3. Obtain prior records from [place] to learn about past med trials, efficacy and side effects, if risperdal is efficacious consider Consta or Invega to foster compliance if no contraindications and accessible 10/19 - Increase Risperdal to 1 mg. AM and 1.5 mg. HS - Obtain supplemental from family 10/20 - Continue current meds - Work toward an BNAKS 10/21 - Increase Risperidone to 2 mg PO qAM and 3 mg HS 10/22 - Some improvement in the that auditory and visual hallucinations seem less intrusive. However, she seems to have acted out when her breakfast tray was delivered later than she expected by calling 911 and telling the float operator that we are "starving her." We were able to process that in our session. - Increase risperidone to 2 mg qam and 4 mg HS. 10/23 - Continue current medications - Assist with reality orientation 10/24 - Increase Risperdal to 2 mg. AM and 5 mg HS - Add Klonopin 1 mg. AM - Phone conversation with sister Luda 10/25 - Continue current meds 10/26 - Meeting with sister scheduled for 10/29 - Cont risperidone, consider need to increase dose further vs add a second antipsychotic if psychosis does not improve further - Encourage group attendance/participation/reality testing - Discontinue clonazepam as patient is refusing to take it. Continue lorazepam 1mg tid prn. 10/27 - Increase Risperdal to 3 mg. AM and 6 mg HS to target psychosis - Patient refused to consider Invega or any BANKS (2) Obesity - obtain fasting lipids and blood sugar - monitor and consider metformin to offset weight gain of AAP - encourage physical activity as tolerated to reduce risk of gain 10/19 - FLP normal, glucose elevated 100. Will require ongoing monitoring as obese and on atypical antipsychotic. 10/23 -The patient is eating to excess, necessitating that the staff lockup food in the common areas. She is eating 100% of all 3 meals plus snacks. (3) Hypertension 10/18 - Lisinopril 25mg daily started. Will need f/u with PCP. Discharge / Aftercare Planning Primary Care Physician: Name: Unknown Therapist: Name: Unknown Leather Skinner: Name: Unknown Visit Code E&M Code: 65918 Inventory Assets Strengths: voluntary for admission, supportive family (allbeit geographically ), locked unit Needs: assurance of aftercare and treatment plan to foster compliance clarification of her job and housing status Risk Factors Assessment : No /single/: Yes Higher / Fall in social status: No Health problems: No Mental Health Diagnoses: Yes Substance use disorders: No Previous attempt: Yes Previous attempt; planned: No Previous attempt; didn't tell: Yes Family history of suicide: No Previous psychiatric stay: Yes Hopelessness: Yes Smoker: No Protective Factors Assessment [employer] beliefs: Yes : No Responsible for young children: No Employed: No Stable relationships: No Supportive family: Yes Good rapport with provider: No Absence of risk factors above: No Data Vital Signs Last 24 Hrs: Date Time Temp Pulse Resp B/P (MAP) Pulse Ox O2 Delivery O2 Flow Rate FiO2 10/27/16 06:46 36.3 99 18 130/79 97 115/75 Meds Administered Last 24 Hrs: Current Inpatient Medications Medications (Trade) Dose Ordered Sig/Stacey Route Start Time Stop Time Status Last Admin Dose Admin Acetaminophen (Tylenol Tab) 650 mg Q4H PRN PO 10/17/16 17:30 11/16/16 17:29 10/26/16 20:19 650 MG Bismuth Subsalicylate (Kaopectate Liqd) 15 ml PRN PRN PO 10/17/16 17:30 11/16/16 17:29 10/18/16 21:17 15 ML Al Hydroxide/Mg Hydroxide (Maalox Susp) 30 ml Q4H PRN PO 10/17/16 17:30 11/16/16 17:29 10/24/16 06:41 30 ML Magnesium Hydroxide (Milk Of Magnesia Susp) 30 ml DAILY PRN PO 10/17/16 17:30 11/16/16 17:29 Sodium Chloride ([place] Nasal [place]) PRN PRN NA 10/17/16 17:30 11/16/16 17:29 Hydroxyzine HCl (Vistaril Tab) 50 mg HSZ PRN PO 10/17/16 17:30 11/16/16 17:29 Hydroxyzine HCl (Vistaril Tab) 25 mg Q4H PRN PO 10/17/16 17:30 11/16/16 17:29 10/21/16 09:08 25 MG Risperidone (Risperdal M Tab) 0.5 mg TID PRN PO 10/17/16 17:30 11/16/16 17:29 10/26/16 16:47 0.5 MG Hydrochlorothiazide (Hydrochlorothiazide Tab) 25 mg DAILY PO 10/18/16 09:00 11/17/16 08:59 10/27/16 08:32 25 MG Lorazepam (Ativan Tab) 1 mg TID PRN PO 10/18/16 12:45 11/17/16 12:44 10/25/16 21:29 1 MG Risperidone (Risperdal Tab) 2 mg QAM PO 10/22/16 09:00 11/21/16 08:59 10/27/16 08:32 2 MG Ibuprofen (Motrin Tab) 600 mg TID PRN PO 10/23/16 19:30 11/22/16 19:29 10/27/16 09:02 600 MG Risperidone (Risperdal Tab) 5 mg HS PO 10/24/16 22:00 11/23/16 21:59 10/26/16 21:20 5 MG Lab Results Last 24 Hrs: 10/17/16 11:57 Red Blood Count 4.55, Mean Corpuscular Volume 80.0, Mean Corpuscular Hemoglobin 26.4, Mean Corpuscular Hemoglobin Concent 33.0, Mean Platelet Volume 8.9, Neutrophils (%) (Auto) 62.4, Lymphocytes (%) (Auto) 26.6, Monocytes (%) (Auto) 8.9, Eosinophils (%) (Auto) 1.6, Basophils (%) (Auto) 0.4, Neutrophils # (Auto) 4.41, Lymphocytes # (Auto) 1.88, Monocytes # (Auto) 0.63, Eosinophils # (Auto) 0.11, Basophils # (Auto) 0.03 10/17/16 11:57 Test 10/17/16 11:00 10/17/16 11:57 10/19/16 06:10 Urine Color YELLOW Urine Appearance CLEAR (CLEAR) Urine pH 6.5 (4.5-7.5) Urine Specific [place] 1.017 (1.000-1.030) Urine Protein NEG (NEG) Urine Glucose (UA) NEG (NEG) Urine Ketones NEG (NEG) Urine Occult Blood TRACE (NEG) Urine Nitrite NEG (NEG) Urine Bilirubin NEG (NEG) Urine Urobilinogen NEG (NEG) Urine Leukocyte Esterase NEG (NEG) Urine WBC (Auto) 1-5 /hpf (0-5) Urine RBC (Auto) 0-4 /hpf (0-4) Urine Hyaline Casts (Auto) 1-5 /lpf (0-5) Urine Epithelial Cells (Auto) >30 /lpf (0-5) Urine Bacteria (Auto) 1+ (NEG) Urine Test NEG (NEG) Urine Synthetic Stimulants see note Urine Opiates Screen NEG (NEG) Urine Methadone, Qualitative NEG (NEG) Urine Barbiturates NEG (NEG) Urine Phencyclidine (PCP) Level NEG (NEG) Ur Amphetamine/Methamphetamine NEG (NEG) MDMA (Ecstasy) Screen NEG (NEG) Urine Benzodiazepines Screen NEG (NEG) Urine Cocaine Metabolite NEG (NEG) Cannabinoids Comment see note Urine Synthetic Cannabinoids NEGATIVE (Negative) Ur Synthetic Cannabinoids Confirm (()) Urine Marijuana (THC) NEG (NEG) White Blood Count 7.07 K/uL (4.8-10.8) Red Blood Count 4.55 M/uL (4.2-5.4) Hemoglobin 12.0 g/dL (12.0-16.0) Hematocrit 36.4 % (37-47) Mean Corpuscular Volume 80.0 fL (80-100) Mean Corpuscular Hemoglobin 26.4 pg (25-34) Mean Corpuscular Hemoglobin Concent 33.0 g/dl (32-36) Platelet Count 299 K/uL (130-400) Mean Platelet Volume 8.9 fL (7.4-10.4) Neutrophils (%) (Auto) 62.4 % Lymphocytes (%) (Auto) 26.6 % Monocytes (%) (Auto) 8.9 % Eosinophils (%) (Auto) 1.6 % Basophils (%) (Auto) 0.4 % Neutrophils # (Auto) 4.41 K/uL (1.4-6.5) Lymphocytes # (Auto) 1.88 K/uL (1.2-3.4) Monocytes # (Auto) 0.63 K/uL (0.11-0.59) Eosinophils # (Auto) 0.11 K/uL (0-0.5) Basophils # (Auto) 0.03 K/uL (0-0.2) RDW Standard Deviation 44.9 fL (36.4-46.3) RDW Coefficient of Variation 15.4 % (11.5-14.5) Immature Granulocyte % (Auto) 0.1 % Immature Granulocyte # (Auto) 0.01 K/uL (0.00-0.02) Anion Gap 7.0 mmol/L (3-11) Est Creatinine Clear Calc Drug Dose 98.7 ml/min Estimated GFR () 86.2 Estimated GFR (Non- 74.4 BUN/Creatinine Ratio 10.0 (10-20) Calcium Level 8.6 mg/dl (8.5-10.1) Total Bilirubin 0.3 mg/dl (0.2-1) Aspartate Amino Transf (AST/SGOT) 25 U/L (15-37) Alanine Aminotransferase (ALT/SGPT) 50 U/L (12-78) Alkaline Phosphatase 83 U/L (45-117) Total Protein 7.0 gm/dl (6.4-8.2) Albumin 3.3 gm/dl (3.4-5.0) Globulin 3.7 gm/dl (2.5-4.0) Albumin/Globulin Ratio 0.9 (0.9-2) Thyroid Stimulating Hormone (TSH) 0.641 uIu/ml (0.300-4.500) Salicylates Level < 1.7 mg/dl (2.8-20) Acetaminophen Level < 2 ug/ml (10-30) Ethyl Alcohol mg/dL < 3.0 mg/dl (0-3) Fasting Glucose 100 mg/dl (70-99) Triglycerides Level 125 mg/dl (0-150) Cholesterol Level 166 mg/dl (0-200) HDL Cholesterol 47 mg/dl LDL Cholesterol, Calculated 94 mg/dl VLDL Cholesterol, Calculated 25 mg/dl Cholesterol/HDL Ratio 3.5 Date/Time Source Procedure Growth Status 10/17/16 11:00 Urine , Clean Catch Urine Culture - Final THREE TYPES OF ORGANISMS PRESENT, ALL... Complete Problem Qualifiers (1) Obesity: Obesity type: due to excess calories
[2016-10-27] MEDS: LORAZEPAM 1 MG TAB PO PRN (19:22)
[2016-10-27] MEDS: RISPERIDONE PO SCH ×2 (19:22)
[2016-10-28 06:54] VITALS: BP_SYST 130; BP_SYST 134; BP_DIAS 82; BP_DIAS 85; PULSE 102; PULSE 98; TEMP 36.5
[2016-10-28] MEDS: RISPERIDONE 2 MG TAB PO SCH (09:15)
[2016-10-28] MEDS: HYDROCHLOROTHIAZIDE 25 MG TAB PO SCH (09:16)
--- NOTE | 2016-10-28 11:05 | Psychiatric Progress Notes ---
Progress Note Date of Service Oct 28, 2016. Interval History 41 yo female admitted voluntarily on 10/18/16 with an acute exacerbation of paranoid schizophrenia after being off of her medications. Chief Complaint "When can I go on the shot?". Subjective Patient was seen & assessed interval progress reviewed with Treatment Team. The patient knocks of the office door to be seen. She is asking to go on an BANKS and wonders how quickly that can happen. She says that nothing has changed , she remains fearful that she is not safe, but at the same time knows that she is safe here. She continues to feel that she sees people as zombies and doesn' t think that it will ever change. At one point she says that she will be suicidal after discharge because of the way she feels, but then says that she thinks things will get better and she won't commit suicide. She talked with her mother and sisters by phone yesterday. Her parents consistently said that she could not come to live with them based on her previous trial with them, but the patient wouldn't hear this, saying that she would call them tomorrow to confirm she could come live with them. She is more interactive in the milieu and has been attending more groups. last evening she said that she was fearful of being in her room, and wanted to be locked in. Review of Systems Constitutional: No fever, No chills, No sweats, No weight loss, No weakness, No fatigue, No problem reported ENT: No hearing loss, No unusual epistaxis, No nasal symptoms, No sore throat, No tinnitus, No dental problems, No trouble swallowing, No problem reported Respiratory: No cough, No sputum, No wheezing, No shortness of breath, No dyspnea on exertion, No dyspnea at rest, No hemoptysis, No problem reported Cardiovascular: No chest pain, No orthopnea, No PND, No edema, No claudication , No palpitations, No problem reported Abdomen: No pain, No nausea, No vomiting, No diarrhea, No constipation, No GI bleeding, No problem reported Musculoskeletal: No joint pain, No muscle pain, No swelling, No calf pain, No problem reported Neurologic: No memory loss, No paralysis, No weakness, No numbness/tingling, No vertigo, No balance problems, No problem reported Psychiatric: + problem reported (delusions and hallucinations) Integumentary: No rash, No itch, No new/changing skin lesions, No color change , No bleeding, No problem reported Medication Side Effects: Sedation Sleep Information Total Hours of Sleep: 8.50 Meal Information Percent of Breakfast Consumed: 100 Percent of Lunch Consumed: 100 Percent of Dinner Consumed: 90 Mental Status Exam During interview pt is: alert and oriented, guarded Appearance: appropriately groomed Eye contact is: fair Motor behavior is: steady gait & station, psychomotor agitation (restlessness) Speech: normal in rate, rhythm & volume Affect: blunted, anxious Mood is: other (fearful, paranoid) Thought process: goal directed Thought content: paranoid (feeling others are trying to hurt her, eat her), delusions (beleiving others are trying to kill her and eat her with no reality testing), persecution Suicidal thought are: denied (while in the hospital but positive if she were to be discharged) Homicidal thoughts are: denied Hallucinations: auditory, visual Cognition: memory grossly intact, language grossly intact Intelligence estimated to be: average Insight: impaired Judgement: impaired Impression Remains psychotic, with delusions, hallucinations, and paranoia. Fearful and guarded. She is out of her room more and able to attend some groups. We have been in contact with her family and they are not able or willing to have her live with them, but sister Luda still involved enough to want to help her live near her. Homeless shelters may be our only choice for housing. Today she is willing to convert to a long acting injectable. She has demonstrated tolerability with risperdal and so will order Sustenna 234 mg for today and 156 mg on day 4. Will continue po meds in the form of Invega as we cross over. We will continue to work on disposition plans and aftercare which will be complicated. Plan (1) Paranoid schizophrenia 1. Safety - inpatient is least restrictive and most appropriate setting for care due to ongoing AH prompting SI with plan, disorganization and paranoid delusions of others harming her resulting in statement "I am going to be violent" and limited ability to care for self in this disorganized state - milieu, group therapy, and while still verbalizing thoughts of violence Medically necessary private room 2. Medications - Risperdal 1mg/hs with 0.5mg po tid prn watching for orthostasis, and sedation , 10/19/16 will get FBS and Fasting lipids; watch tachycardia may be agitation of psychosis but could be SE or risperdal - change klonopin to prn ativan for severe agitation due to shorter half life and need to monitor sedation 3. Obtain prior records from [facility] to learn about past med trials, efficacy and side effects, if risperdal is efficacious consider Consta or Invega to foster compliance if no contraindications and accessible 10/19 - Increase Risperdal to 1 mg. AM and 1.5 mg. HS - Obtain supplemental from family 10/20 - Continue current meds - Work toward an BANKS 10/21 - Increase Risperidone to 2 mg PO qAM and 3 mg HS 10/22 - Some improvement in the that auditory and visual hallucinations seem less intrusive. However, she seems to have acted out when her breakfast tray was delivered later than she expected by calling 911 and telling the automatic punch press operator that we are "starving her." We were able to process that in our session. - Increase risperidone to 2 mg qam and 4 mg HS. 10/23 - Continue current medications - Assist with reality orientation 10/24 - Increase Risperdal to 2 mg. AM and 5 mg HS - Add Klonopin 1 mg. AM - Phone conversation with sister Luda 10/25 - Continue current meds 10/26 - Meeting with sister scheduled for 10/29 - Cont risperidone, consider need to increase dose further vs add a second antipsychotic if psychosis does not improve further - Encourage group attendance/participation/reality testing - Discontinue clonazepam as patient is refusing to take it. Continue lorazepam 1mg tid prn. 10/27 - Increase Risperdal to 3 mg. AM and 6 mg HS to target psychosis - Patient refused to consider Invega or any BANKS 10/28 - Now willing for BANKS. Will start Sustenna 234 mg IM today with 2nd injection of 156 mg on day 4 - Will DC risperdal and order Invega po 6 mg HS as we make the transition. (2) Obesity - obtain fasting lipids and blood sugar - monitor and consider metformin to offset weight gain of AAP - encourage physical activity as tolerated to reduce risk of gain 10/19 - FLP normal, glucose elevated 100. Will require ongoing monitoring as obese and on atypical antipsychotic. 10/23 -The patient is eating to excess, necessitating that the staff lockup food in the common areas. She is eating 100% of all 3 meals plus snacks. (3) Hypertension 10/18 - Lisinopril 25mg daily started. Will need f/u with PCP. Discharge / Aftercare Planning Primary Care Physician: Name: Unknown Therapist: Name: Unknown Grove Worker: Name: Unknown Inventory Assets Strengths: voluntary for admission, supportive family (allbeit geographically ), locked unit Needs: assurance of aftercare and treatment plan to foster compliance clarification of her job and housing status Risk Factors Assessment : No /single/: Yes Higher / Fall in social status: No Health problems: No Mental Health Diagnoses: Yes Substance use disorders: No Previous attempt: Yes Previous attempt; planned: No Previous attempt; didn't tell: Yes Family history of suicide: No Previous psychiatric stay: Yes Hopelessness: Yes Smoker: No Protective Factors Assessment Baptism beliefs: Yes : No Responsible for young children: No Employed: No Stable relationships: No Supportive family: Yes Good rapport with provider: No Absence of risk factors above: No Data Vital Signs Last 24 Hrs: Date Time Temp Pulse Resp B/P (MAP) Pulse Ox O2 Delivery O2 Flow Rate FiO2 10/28/16 06:54 36.5 102 18 134/85 98 130/82 Meds Administered Last 24 Hrs: Current Inpatient Medications Medications (Trade) Dose Ordered Sig/Stacey Route Start Time Stop Time Status Last Admin Dose Admin Acetaminophen (Tylenol Tab) 650 mg Q4H PRN PO 10/17/16 17:30 11/16/16 17:29 10/26/16 20:19 650 MG Bismuth Subsalicylate (Kaopectate Liqd) 15 ml PRN PRN PO 10/17/16 17:30 11/16/16 17:29 10/18/16 21:17 15 ML Al Hydroxide/Mg Hydroxide (Maalox Susp) 30 ml Q4H PRN PO 10/17/16 17:30 11/16/16 17:29 10/24/16 06:41 30 ML Magnesium Hydroxide (Milk Of Magnesia Susp) 30 ml DAILY PRN PO 10/17/16 17:30 11/16/16 17:29 Sodium Chloride ([place] Nasal [place]) PRN PRN NA 10/17/16 17:30 11/16/16 17:29 Hydroxyzine HCl (Vistaril Tab) 50 mg HSZ PRN PO 10/17/16 17:30 11/16/16 17:29 Hydroxyzine HCl (Vistaril Tab) 25 mg Q4H PRN PO 10/17/16 17:30 11/16/16 17:29 10/21/16 09:08 25 MG Risperidone (Risperdal M Tab) 0.5 mg TID PRN PO 10/17/16 17:30 11/16/16 17:29 10/26/16 16:47 0.5 MG Hydrochlorothiazide (Hydrochlorothiazide Tab) 25 mg DAILY PO 10/18/16 09:00 11/17/16 08:59 10/28/16 09:16 25 MG Lorazepam (Ativan Tab) 1 mg TID PRN PO 10/18/16 12:45 11/17/16 12:44 10/27/16 19:22 1 MG Risperidone (Risperdal Tab) 2 mg QAM PO 10/22/16 09:00 11/21/16 08:59 10/28/16 09:15 2 MG Ibuprofen (Motrin Tab) 600 mg TID PRN PO 10/23/16 19:30 11/22/16 19:29 10/27/16 19:03 600 MG Risperidone (Risperdal Tab) 5 mg HS PO 10/24/16 22:00 11/23/16 21:59 10/27/16 19:22 5 MG Lab Results Last 24 Hrs: 10/17/16 11:57 Red Blood Count 4.55, Mean Corpuscular Volume 80.0, Mean Corpuscular Hemoglobin 26.4, Mean Corpuscular Hemoglobin Concent 33.0, Mean Platelet Volume 8.9, Neutrophils (%) (Auto) 62.4, Lymphocytes (%) (Auto) 26.6, Monocytes (%) (Auto) 8.9, Eosinophils (%) (Auto) 1.6, Basophils (%) (Auto) 0.4, Neutrophils # (Auto) 4.41, Lymphocytes # (Auto) 1.88, Monocytes # (Auto) 0.63, Eosinophils # (Auto) 0.11, Basophils # (Auto) 0.03 10/17/16 11:57 Test 10/17/16 11:00 10/17/16 11:57 10/19/16 06:10 Urine Color YELLOW Urine Appearance CLEAR (CLEAR) Urine pH 6.5 (4.5-7.5) Urine Specific W[place]red 1.017 (1.000-1.030) Urine Protein NEG (NEG) Urine Glucose (UA) NEG (NEG) Urine Ketones NEG (NEG) Urine Occult Blood TRACE (NEG) Urine Nitrite NEG (NEG) Urine Bilirubin NEG (NEG) Urine Urobilinogen NEG (NEG) Urine Leukocyte Esterase NEG (NEG) Urine WBC (Auto) 1-5 /hpf (0-5) Urine RBC (Auto) 0-4 /hpf (0-4) Urine Hyaline Casts (Auto) 1-5 /lpf (0-5) Urine Epithelial Cells (Auto) >30 /lpf (0-5) Urine Bacteria (Auto) 1+ (NEG) Urine Test NEG (NEG) Urine Synthetic Stimulants see note Urine Opiates Screen NEG (NEG) Urine Methadone, Qualitative NEG (NEG) Urine Barbiturates NEG (NEG) Urine Phencyclidine (PCP) Level NEG (NEG) Ur Amphetamine/Methamphetamine NEG (NEG) MDMA (Ecstasy) Screen NEG (NEG) Urine Benzodiazepines Screen NEG (NEG) Urine Cocaine Metabolite NEG (NEG) Cannabinoids Comment see note Urine Synthetic Cannabinoids NEGATIVE (Negative) Ur Synthetic Cannabinoids Confirm (()) Urine Marijuana (THC) NEG (NEG) White Blood Count 7.07 K/uL (4.8-10.8) Red Blood Count 4.55 M/uL (4.2-5.4) Hemoglobin 12.0 g/dL (12.0-16.0) Hematocrit 36.4 % (37-47) Mean Corpuscular Volume 80.0 fL (80-100) Mean Corpuscular Hemoglobin 26.4 pg (25-34) Mean Corpuscular Hemoglobin Concent 33.0 g/dl (32-36) Platelet Count 299 K/uL (130-400) Mean Platelet Volume 8.9 fL (7.4-10.4) Neutrophils (%) (Auto) 62.4 % Lymphocytes (%) (Auto) 26.6 % Monocytes (%) (Auto) 8.9 % Eosinophils (%) (Auto) 1.6 % Basophils (%) (Auto) 0.4 % Neutrophils # (Auto) 4.41 K/uL (1.4-6.5) Lymphocytes # (Auto) 1.88 K/uL (1.2-3.4) Monocytes # (Auto) 0.63 K/uL (0.11-0.59) Eosinophils # (Auto) 0.11 K/uL (0-0.5) Basophils # (Auto) 0.03 K/uL (0-0.2) RDW Standard Deviation 44.9 fL (36.4-46.3) RDW Coefficient of Variation 15.4 % (11.5-14.5) Immature Granulocyte % (Auto) 0.1 % Immature Granulocyte # (Auto) 0.01 K/uL (0.00-0.02) Anion Gap 7.0 mmol/L (3-11) Est Creatinine Clear Calc Drug Dose 98.7 ml/min Estimated GFR () 86.2 Estimated GFR (Non- 74.4 BUN/Creatinine Ratio 10.0 (10-20) Calcium Level 8.6 mg/dl (8.5-10.1) Total Bilirubin 0.3 mg/dl (0.2-1) Aspartate Amino Transf (AST/SGOT) 25 U/L (15-37) Alanine Aminotransferase (ALT/SGPT) 50 U/L (12-78) Alkaline Phosphatase 83 U/L (45-117) Total Protein 7.0 gm/dl (6.4-8.2) Albumin 3.3 gm/dl (3.4-5.0) Globulin 3.7 gm/dl (2.5-4.0) Albumin/Globulin Ratio 0.9 (0.9-2) Thyroid Stimulating Hormone (TSH) 0.641 uIu/ml (0.300-4.500) Salicylates Level < 1.7 mg/dl (2.8-20) Acetaminophen Level < 2 ug/ml (10-30) Ethyl Alcohol mg/dL < 3.0 mg/dl (0-3) Fasting Glucose 100 mg/dl (70-99) Triglycerides Level 125 mg/dl (0-150) Cholesterol Level 166 mg/dl (0-200) HDL Cholesterol 47 mg/dl LDL Cholesterol, Calculated 94 mg/dl VLDL Cholesterol, Calculated 25 mg/dl Cholesterol/HDL Ratio 3.5 Date/Time Source Procedure Growth Status 10/17/16 11:00 Urine , Clean Catch Urine Culture - Final THREE TYPES OF ORGANISMS PRESENT, ALL... Complete Problem Qualifiers (1) Obesity: Obesity type: due to excess calories
[2016-10-28] MEDS ORDERED: BENZTROPINE MESYLATE 1 MG TAB PO PRN (11:15)
[2016-10-28] MEDS ORDERED: INVEGA SUSTENNA 234 MG/ML 1.5 ML SYR IM ONE (11:30)
[2016-10-28] MEDS: LORAZEPAM 1 MG TAB PO PRN (16:00)
[2016-10-28] MEDS: PALIPERIDONE 3 MG TABCR PO SCH (20:21)
[2016-10-29 06:42] VITALS: BP_SYST 131; BP_SYST 132; BP_DIAS 81; BP_DIAS 87; PULSE 101; PULSE 102; TEMP 36.5
[2016-10-29 06:43] VITALS: Ht 167.6 cm; Wt 111.6 kg
[2016-10-29] MEDS: HYDROCHLOROTHIAZIDE 25 MG TAB PO SCH (08:35)
--- NOTE | 2016-10-29 10:57 | Psychiatric Progress Notes ---
Progress Note Date of Service Oct 29, 2016. Interval History 41 yo female admitted voluntarily on 10/18/16 with an acute exacerbation of paranoid schizophrenia after being off of her medications. Chief Complaint "I don't feel safe here because of the voices". Subjective Patient was seen & assessed interval progress reviewed with Treatment Team. gets benefit from prn Ativan but doesn't approach staff to request it regularly. Staff note her affect is often incongruent with her reported mood/ symptoms (oddly bright). She describes frequent auditory kitchen of zombies and weapons. She has seen "them" near the tv but denies watching shows like Walking . She has been writing statements on her arms in pen as believes that God will protect her. Disorganized when asked to describe why she needed protected from gluttony (which she had written on arm). Review of Systems Psych: denies symptoms other than stated above Constitutional: denied Cardiovascular: denied GI: denied Neurologic: denied Remainder of 10 body systems also reviewed and denied other than noted above. Medication Side Effects: Sedation Sleep Information Total Hours of Sleep: 7.50 Meal Information Percent of Breakfast Consumed: 100 Percent of Lunch Consumed: 100 Percent of Dinner Consumed: 85 Mental Status Exam During interview pt is: alert and oriented, guarded (sat by door with it propped open) Appearance: appropriately groomed Eye contact is: fair Motor behavior is: steady gait & station, no abnormal motor movements Speech: normal in rate, rhythm & volume Affect: blunted (at times then inappropriately bright, likely in response to internal stimuli), anxious Mood is: other (fearful, paranoid) Thought process: circumstantial Thought content: paranoid (feeling zombies are trying to hurt her, eat her), delusions (beleiving others are trying to kill her and eat her with no reality testing), persecution Suicidal thought are: denied (while in the hospital but positive if she were to be discharged) Homicidal thoughts are: denied Hallucinations: auditory, visual Cognition: memory grossly intact, language grossly intact Intelligence estimated to be: average Insight: impaired Judgement: impaired Impression Remains psychotic, with delusions, hallucinations, and paranoia. Fearful and guarded. She is out of her room more and able to attend some groups. We have been in contact with her family and they are not able or willing to have her live with them, but sister Luda still involved enough to want to help her live near her. Homeless shelters may be our only choice for housing. Converted to long acting injectable. Plan (1) Paranoid schizophrenia 1. Safety - inpatient is least restrictive and most appropriate setting for care due to ongoing AH prompting SI with plan, disorganization and paranoid delusions of others harming her resulting in statement "I am going to be violent" and limited ability to care for self in this disorganized state - milieu, group therapy, and while still verbalizing thoughts of violence Medically necessary private room 2. Medications - Risperdal 1mg/hs with 0.5mg po tid prn watching for orthostasis, and sedation , 10/19/16 will get FBS and Fasting lipids; watch tachycardia may be agitation of psychosis but could be SE or risperdal - change klonopin to prn ativan for severe agitation due to shorter half life and need to monitor sedation 3. Obtain prior records from [facility] to learn about past med trials, efficacy and side effects, if risperdal is efficacious consider Consta or Invega to foster compliance if no contraindications and accessible 10/19 - Increase Risperdal to 1 mg. AM and 1.5 mg. HS - Obtain supplemental from family 10/20 - Continue current meds - Work toward an BANKS 10/21 - Increase Risperidone to 2 mg PO qAM and 3 mg HS 10/22 - Some improvement in the that auditory and visual hallucinations seem less intrusive. However, she seems to have acted out when her breakfast tray was delivered later than she expected by calling 911 and telling the coating and baking operator that we are "starving her." We were able to process that in our session. - Increase risperidone to 2 mg qam and 4 mg HS. 10/23 - Continue current medications - Assist with reality orientation 10/24 - Increase Risperdal to 2 mg. AM and 5 mg HS - Add Klonopin 1 mg. AM - Phone conversation with sister Luda 10/25 - Continue current meds 10/26 - Meeting with sister scheduled for 10/29 - Cont risperidone, consider need to increase dose further vs add a second antipsychotic if psychosis does not improve further - Encourage group attendance/participation/reality testing - Discontinue clonazepam as patient is refusing to take it. Continue lorazepam 1mg tid prn. 10/27 - Increase Risperdal to 3 mg. AM and 6 mg HS to target psychosis - Patient refused to consider Invega or any BANKS 10/28 - Now willing for BANKS. Will start Sustenna 234 mg IM today with 2nd injection of 156 mg on day 4 - Will DC risperdal and order Invega po 6 mg HS as we make the transition. 10/29 --discussed augmenting Invega with a typical for acute symptom relief. She is adamant that she read "horrible things" about Haldol. Offered/declined Trilafon. Offered standing order benzo for now, patient also declined. (2) Obesity - obtain fasting lipids and blood sugar - monitor and consider metformin to offset weight gain of AAP - encourage physical activity as tolerated to reduce risk of gain 10/19 - FLP normal, glucose elevated 100. Will require ongoing monitoring as obese and on atypical antipsychotic. 10/23 -The patient is eating to excess, necessitating that the staff lockup food in the common areas. She is eating 100% of all 3 meals plus snacks. (3) Hypertension 10/18 - Lisinopril 25mg daily started. Will need f/u with PCP. Discharge / Aftercare Planning Primary Care Physician: Name: Unknown Therapist: Name: Unknown Calender Supervisor: Name: Unknown Visit Code E&M Code: 36723 Inventory Assets Strengths: voluntary for admission, supportive family (allbeit geographically ), locked unit Needs: assurance of aftercare and treatment plan to foster compliance clarification of her job and housing status Risk Factors Assessment : No /single/: Yes Higher / Fall in social status: No Health problems: No Mental Health Diagnoses: Yes Substance use disorders: No Previous attempt: Yes Previous attempt; planned: No Previous attempt; didn't tell: Yes Family history of suicide: No Previous psychiatric stay: Yes Hopelessness: Yes Smoker: No Protective Factors Assessment Congregational beliefs: Yes : No Responsible for young children: No Employed: No Stable relationships: No Supportive family: Yes Good rapport with provider: No Absence of risk factors above: No Data Vital Signs Last 24 Hrs: Date Time Temp Pulse Resp B/P (MAP) Pulse Ox O2 Delivery O2 Flow Rate FiO2 10/29/16 06:42 36.5 101 18 131/81 102 132/87 Meds Administered Last 24 Hrs: Meds Administered (Past 24Hrs) Medications (Trade) Dose Ordered Sig/Stacey Route Start Time Stop Time Status Last Admin Dose Admin Paliperidone Palmitate (Invega Sustenna) 234 mg 1130 ONCE IM 10/28/16 11:30 10/28/16 11:31 DC 10/28/16 13:27 234 MG Paliperidone (Invega) 6 mg HS PO 10/28/16 22:00 11/27/16 21:59 10/28/16 20:21 6 MG Problem Qualifiers (1) Obesity: Obesity type: due to excess calories
[2016-10-29] MEDS: PALIPERIDONE 3 MG TABCR PO SCH (21:14)
[2016-10-30 06:40] VITALS: BP 138/85; PULSE 109; TEMP 36.6
[2016-10-30] MEDS: HYDROCHLOROTHIAZIDE 25 MG TAB PO SCH (08:13)
[2016-10-30] MEDS: MULTIVITAMIN TAB PO SCH (08:14)
--- NOTE | 2016-10-30 08:20 | Psychiatric Progress Notes ---
Progress Note Date of Service Oct 30, 2016. Interval History 41 yo female admitted voluntarily on 10/18/16 with an acute exacerbation of paranoid schizophrenia after being off of her medications. Chief Complaint "I'm very tired". Subjective Patient was seen & assessed interval progress reviewed with nursing. Staff report she has been out of her room more and going to programming, but continues to report AVH and paranoia, delusions that people are zombies, and fearfulness. She has no insight into her psychotic symptoms. She remains homeless, and the [facility] would not accept her there. She has been working with social work on getting OP providers and housing, but it has been difficult as she wants to go to the [place] area. She was able to contact her formed boss and asked him about getting her job back, but was told that it would not work out. She expressed concerns about outstanding student loans. She got Invega Sustenna 10/28 and is due for the second loading dose 10/31. Today, the patient is seen in her room where she is still in bed [facility] area she states that she is sleepy, and asks "can you take me off less pills?" She states she slept well through the night, but still feels tired this morning. She says yesterday she felt tired when she initially got up, but it resolved an hour later. She states at home, she normally does not get out of bed until 11 AM. Attempted to assess why she thinks her medications are making her tired, if she does not usually get up until later in the day at baseline, but she is unable to explain this. She says her thoughts are "don't want them to turn dumbfounded." She continues to experience hallucinations, is hearing voices "about zombieism, but I can't tell you. I'm not out there exploring, because I' m tired." She is also having visual hallucinations of "bright red faces," which she says don't bother her, "it's cool, I like them." Review of Systems Medication Side Effects: Sedation Sleep Information Total Hours of Sleep: 9.25 Meal Information Percent of Breakfast Consumed: 100 Percent of Lunch Consumed: 100 Percent of Dinner Consumed: 90 Mental Status Exam During interview pt is: alert and oriented, guarded Appearance: disheveled, other (lying in bed with the music playing loudly) Eye contact is: fair, poor Motor behavior is: no abnormal motor movements Speech: normal in rate, rhythm & volume (nonspontaneous, but does answer questions) Affect: irritable, other (several times laughs inappropriately and without stimuli in response to voices, affect is incongruent with stated mood) Mood is: other ("okay") Thought process: circumstantial Thought content: paranoid (feeling zombies are trying to hurt her), delusions ( believes that some people are zombies that will try to kill her), persecution Suicidal thought are: denied Homicidal thoughts are: denied (but believe she is in danger) Hallucinations: auditory, visual Cognition: memory grossly intact, language grossly intact, other (attention impaired) Intelligence estimated to be: average Insight: impaired Judgement: impaired Impression Remains psychotic, with delusions, hallucinations, and paranoia. Fearful and guarded. She is out of her room more and able to attend some groups. We have been in contact with her family and they are not able or willing to have her live with them, but sister Luda still involved enough to want to help her live near her, although this has proved very challenging due to being out of [facility] with difficulty setting up services in her area. Homeless shelters may be our only choice for housing. Converted to long acting injectable. Plan (1) Paranoid schizophrenia 1. Safety - inpatient is least restrictive and most appropriate setting for care due to ongoing AH prompting SI with plan, disorganization and paranoid delusions of others harming her resulting in statement "I am going to be violent" and limited ability to care for self in this disorganized state - milieu, group therapy, and while still verbalizing thoughts of violence Medically necessary private room 2. Medications - Risperdal 1mg/hs with 0.5mg po tid prn watching for orthostasis, and sedation , 10/19/16 will get FBS and Fasting lipids; watch tachycardia may be agitation of psychosis but could be SE or risperdal - change klonopin to prn ativan for severe agitation due to shorter half life and need to monitor sedation 3. Obtain prior records from [place] to learn about past med trials, efficacy and side effects, if risperdal is efficacious consider Consta or Invega to foster compliance if no contraindications and accessible 10/19 - Increase Risperdal to 1 mg. AM and 1.5 mg. HS - Obtain supplemental from family 10/20 - Continue current meds - Work toward an BANKS 10/21 - Increase Risperidone to 2 mg PO qAM and 3 mg HS 10/22 - Some improvement in the that auditory and visual hallucinations seem less intrusive. However, she seems to have acted out when her breakfast tray was delivered later than she expected by calling 911 and telling the vacuum drum drier operator that we are "starving her." We were able to process that in our session. - Increase risperidone to 2 mg qam and 4 mg HS. 10/23 - Continue current medications - Assist with reality orientation 10/24 - Increase Risperdal to 2 mg. AM and 5 mg HS - Add Klonopin 1 mg. AM - Phone conversation with sister Luda 10/25 - Continue current meds 10/26 - Meeting with sister scheduled for 10/29 - Cont risperidone, consider need to increase dose further vs add a second antipsychotic if psychosis does not improve further - Encourage group attendance/participation/reality testing - Discontinue clonazepam as patient is refusing to take it. Continue lorazepam 1mg tid prn. 10/27 - Increase Risperdal to 3 mg. AM and 6 mg HS to target psychosis - Patient refused to consider Invega or any BANKS 10/28 - Now willing for BANKS. Will start Sustenna 234 mg IM today with 2nd injection of 156 mg on day 4 - Will DC risperdal and order Invega po 6 mg HS as we make the transition. 10/29 -discussed augmenting Invega with a typical for acute symptom relief. She is adamant that she read "horrible things" about Haldol. Offered/declined Trilafon. Offered standing order benzo for now, patient also declined. 10/30 - continues to refuse augmentation with an additional antipsychotic, wanting to attribute some of her symptoms to the medication. Continue oral Invega until she gets her second loading dose, and will then discontinue. (2) Obesity - obtain fasting lipids and blood sugar - monitor and consider metformin to offset weight gain of AAP - encourage physical activity as tolerated to reduce risk of gain 10/19 - FLP normal, glucose elevated 100. Will require ongoing monitoring as obese and on atypical antipsychotic. 10/23 -The patient is eating to excess, necessitating that the staff lockup food in the common areas. She is eating 100% of all 3 meals plus snacks. (3) Hypertension 10/18 - Lisinopril 25mg daily started. Will need f/u with PCP. Discharge / Aftercare Planning Primary Care Physician: Name: Unknown Therapist: Name: Unknown Industrial Education Instructor: Name: Unknown Visit Code E&M Code: 62160 Inventory Assets Strengths: voluntary for admission, supportive family (allbeit geographically ), locked unit Needs: assurance of aftercare and treatment plan to foster compliance clarification of her job and housing status Risk Factors Assessment : No /single/: Yes Higher / Fall in social status: No Health problems: No Mental Health Diagnoses: Yes Substance use disorders: No Previous attempt: Yes Previous attempt; planned: No Previous attempt; didn't tell: Yes Family history of suicide: No Previous psychiatric stay: Yes Hopelessness: Yes Smoker: No Protective Factors Assessment Episcopal beliefs: Yes : No Responsible for young children: No Employed: No Stable relationships: No Supportive family: Yes Good rapport with provider: No Absence of risk factors above: No Data Vital Signs Last 24 Hrs: Date Time Temp Pulse Resp B/P (MAP) Pulse Ox O2 Delivery O2 Flow Rate FiO2 10/30/16 06:40 36.6 109 18 138/85 Meds Administered Last 24 Hrs: Meds Administered (Past 24Hrs) Medications (Trade) Dose Ordered Sig/Stacey Route Start Time Stop Time Status Last Admin Dose Admin Paliperidone Palmitate (Invega Sustenna) 234 mg 1130 ONCE IM 10/28/16 11:30 10/28/16 11:31 DC 10/28/16 13:27 234 MG Paliperidone (Invega) 6 mg HS PO 10/28/16 22:00 11/27/16 21:59 10/29/16 21:14 6 MG Multivitamins (Multivitamin Tab) 1 tab QAM PO 10/30/16 09:00 11/29/16 08:59 10/30/16 08:14 1 TAB Problem Qualifiers (1) Obesity: Obesity type: due to excess calories
[2016-10-30] MEDS: LORAZEPAM 1 MG TAB PO PRN (19:16)
[2016-10-30] MEDS: PALIPERIDONE 3 MG TABCR PO SCH (21:32)
--- NOTE | 2016-10-31 07:57 | Psychiatric Progress Notes ---
Progress Note Date of Service Oct 31, 2016. Interval History 41 yo female admitted voluntarily on 10/18/16 with an acute exacerbation of paranoid schizophrenia after being off of her medications. Chief Complaint "Like I haven't made any suicide attempts, I have no criminal history, I'm not in violation, I just wanna leave ". Subjective Patient was seen & assessed interval progress reviewed with nursing. Staff report she was actively hallucinating yesterday, had to leave group because she couldn't focus due to hearing voices, and said the voices were "violent" and asked staff to "get a gun and blow my brains out." She gave staff an address where she said they could get a gun. She was restless, irritable, and asking to go outside, and refused prn medications. She endorsed paranoia and fearfulness, and appeared to be responding to internal stimuli. She told staff there were zombies walking by her room all day long, and said she was too scared to attend groups. She was difficult to reassure. Her sister contacted staff and said the patient called her and said she was leaving the hospital. She eventually accepted Ativan 1mg prn. Her second Invega Sustenna loading dose is due today. She is asking to leave, but declined to submit a 72 hour notice, saying she wanted to wait one more day. Today, she requested to be seen, stating she is quite anxious and doesn't feel safe. She refuses to elaborate further, and starts talking in the disjointed way about her history, repeatedly stating that she "hasn't done anything wrong." She refuses to say why she wants to leave, and won't answer when asked if she is hallucinating, but her eyes are darting around the room and she appears fearful. When asked what her plan would be if she were discharged from the hospital, as she is homeless with no outpatient providers, she states that she will go stay with her mother in [place]. She admits that she hasn't even talk to her mother about this, but says she will go call her right now, and wants to know if she can then be discharged. When asked about fears about the zombies she is seen on the unit that she had reported to staff, she refuses to answer. Review of Systems Medication Side Effects: Sedation Sleep Information Total Hours of Sleep: 7.00 Meal Information Percent of Breakfast Consumed: 100 Percent of Lunch Consumed: 100 Percent of Dinner Consumed: 25 Mental Status Exam During interview pt is: alert and oriented, guarded Appearance: appropriately groomed, other (obese, dyed blonde hair, seated, appears very anxious and fearful, with eyes darting around the room) Eye contact is: fair, poor Motor behavior is: steady gait & station, no abnormal motor movements Speech: normal in rate, rhythm & volume (nonspontaneous, but does answer questions) Affect: anxious, constricted, other (appears fearful and paranoid) Mood is: other (patient refuses to answer regarding her mood, perseverating on wanting to leave the hospital) Thought process: looseness of associations, perseveration, other (disorganized) Thought content: paranoid (does not feel safe on the unit as she thinks there are zombies here and they may harm her), delusions (that there are zombies on the unit), persecution Suicidal thought are: denied Homicidal thoughts are: denied (but believe she is in danger) Hallucinations: auditory, visual Cognition: memory grossly intact, language grossly intact, other (attention impaired) Intelligence estimated to be: average Insight: impaired Judgement: impaired Impression Remains psychotic, with delusions, hallucinations, and paranoia. Fearful and guarded. She has decompensated over the past 2 days, is more psychotic, and is now refusing groups and stating she wants to leave the hospital. She is floridly psychotic, has no place to go, no outpatient providers, supports in the community, or a plan to get medication, and is not at all appropriate for discharge. We have been in contact with her family and they are not able or willing to have her live with them, but sister Luda still involved enough to want to help her live near her, although this has proved very challenging [place] with difficulty setting up services in her area. Homeless shelters may be our only choice for housing. Converted to long acting injectable. Plan (1) Paranoid schizophrenia 1. Safety - inpatient is least restrictive and most appropriate setting for care due to ongoing AH prompting SI with plan, disorganization and paranoid delusions of others harming her resulting in statement "I am going to be violent" and limited ability to care for self in this disorganized state - milieu, group therapy, and while still verbalizing thoughts of violence Medically necessary private room 2. Medications - Risperdal 1mg/hs with 0.5mg po tid prn watching for orthostasis, and sedation , 10/19/16 will get FBS and Fasting lipids; watch tachycardia may be agitation of psychosis but could be SE or risperdal - change klonopin to prn ativan for severe agitation due to shorter half life and need to monitor sedation 3. Obtain prior records from [place] to learn about past med trials, efficacy and side effects, if risperdal is efficacious consider Consta or Invega to foster compliance if no contraindications and accessible 10/19 - Increase Risperdal to 1 mg. AM and 1.5 mg. HS - Obtain supplemental from family 10/20 - Continue current meds - Work toward an BANKS 10/21 - Increase Risperidone to 2 mg PO qAM and 3 mg HS 10/22 - Some improvement in the that auditory and visual hallucinations seem less intrusive. However, she seems to have acted out when her breakfast tray was delivered later than she expected by calling 911 and telling the chief operator lock tender that we are "starving her." We were able to process that in our session. - Increase risperidone to 2 mg qam and 4 mg HS. 10/23 - Continue current medications - Assist with reality orientation 10/24 - Increase Risperdal to 2 mg. AM and 5 mg HS - Add Klonopin 1 mg. AM - Phone conversation with sister Luda 10/25 - Continue current meds 10/26 - Meeting with sister scheduled for 10/29 - Cont risperidone, consider need to increase dose further vs add a second antipsychotic if psychosis does not improve further - Encourage group attendance/participation/reality testing - Discontinue clonazepam as patient is refusing to take it. Continue lorazepam 1mg tid prn. 10/27 - Increase Risperdal to 3 mg. AM and 6 mg HS to target psychosis - Patient refused to consider Invega or any BANKS 10/28 - Now willing for BANKS. Will start Sustenna 234 mg IM today with 2nd injection of 156 mg on day 4 - Will DC risperdal and order Invega po 6 mg HS as we make the transition. 10/29 - discussed augmenting Invega with a typical for acute symptom relief. She is adamant that she read "horrible things" about Haldol. Offered/ declined Trilafon. Offered standing order benzo for now, patient also declined. 10/30 - continues to refuse augmentation with an additional antipsychotic, wanting to attribute some of her symptoms to the medication. Continue oral Invega until she gets her second loading dose, and will then discontinue. 10/31 - continue current plan for medications (second Sustenna loading dose due today), and order Haldol both by mouth and IM as needed. If she will agree to take any other typical antipsychotic, would be willing to order it, but currently is refusing to take anything for her psychosis. - Patient states that she thinks she can go live with her mother in [place], despite having never discussed this with her mother in the past. She plans to call her mother today, and will let staff know if mother is willing to explore this option, and which case a family meeting will need to be scheduled. (2) Obesity - obtain fasting lipids and blood sugar - monitor and consider metformin to offset weight gain of AAP - encourage physical activity as tolerated to reduce risk of gain 10/19 - FLP normal, glucose elevated 100. Will require ongoing monitoring as obese and on atypical antipsychotic. 10/23 -The patient is eating to excess, necessitating that the staff lockup food in the common areas. She is eating 100% of all 3 meals plus snacks. (3) Hypertension 10/18 - Lisinopril 25mg daily started. Will need f/u with PCP. Discharge / Aftercare Planning Primary Care Physician: Name: Unknown Therapist: Name: Unknown Potato Inspector: Name: Unknown Visit Code E&M Code: 80013 Inventory Assets Strengths: voluntary for admission, supportive family (allbeit geographically ), locked unit Needs: assurance of aftercare and treatment plan to foster compliance clarification of her job and housing status Risk Factors Assessment : No /single/: Yes Higher / Fall in social status: No Health problems: No Mental Health Diagnoses: Yes Substance use disorders: No Previous attempt: Yes Previous attempt; planned: No Previous attempt; didn't tell: Yes Family history of suicide: No Previous psychiatric stay: Yes Hopelessness: Yes Smoker: No Protective Factors Assessment Yazidi beliefs: Yes : No Responsible for young children: No Employed: No Stable relationships: No Supportive family: Yes Good rapport with provider: No Absence of risk factors above: No Data Meds Administered Last 24 Hrs: Meds Administered (Past 24Hrs) Medications (Trade) Dose Ordered Sig/Stacey Route Start Time Stop Time Status Last Admin Dose Admin Multivitamins (Multivitamin Tab) 1 tab QAM PO 10/30/16 09:00 11/29/16 08:59 10/30/16 08:14 1 TAB Problem Qualifiers (1) Obesity: Obesity type: due to excess calories
[2016-10-31] MEDS ORDERED: HALOPERIDOL LACTATE 5 MG/ML 1 ML VIAL IM PRN (08:45)
[2016-10-31] MEDS ORDERED: HALOPERIDOL 5 MG TAB PO PRN (08:45)
[2016-10-31] MEDS: HYDROCHLOROTHIAZIDE 25 MG TAB PO SCH (10:14)
[2016-10-31] MEDS: MULTIVITAMIN TAB PO SCH (10:14)
[2016-10-31] MEDS: LORAZEPAM 1 MG TAB PO PRN (10:19)
[2016-10-31] MEDS ORDERED: INVEGA SUSTENNA 156 MG/ML 1 ML SYR IM ONE (11:15)
[2016-10-31] MEDS: PALIPERIDONE 3 MG TABCR PO SCH (21:39)
[2016-11-01 06:32] VITALS: BP_SYST 123; BP_SYST 127; BP_DIAS 84; BP_DIAS 88; PULSE 92; PULSE 94; TEMP 36.6
[2016-11-01] MEDS: MULTIVITAMIN TAB PO SCH (08:15)
[2016-11-01] MEDS: HYDROCHLOROTHIAZIDE 25 MG TAB PO SCH (08:15)
--- NOTE | 2016-11-01 10:52 | Psychiatric Progress Notes ---
Progress Note Date of Service Nov 01, 2016. Interval History 41 yo female admitted voluntarily on 10/18/16 with an acute exacerbation of paranoid schizophrenia after being off of her medications. Chief Complaint "Good.". Subjective Patient was seen & assessed interval progress reviewed with Treatment Team. The patient says that she is doing well today, describing her mood as "good" and hallucinations as "better". She remains focused on calling her sister and mother, saying that they are considering letting her live with them, but in reality, both have said no. We discuss the possibility of going to a homeless retirement in [place], but she says that she doesn't want to travel that far. "Can you send me to [facility]?" for mental health treatment. She reports good appetite and sleep. Staff report however, that she has remained paranoid, thinking that the staff are talking and laughing about her. She has also been making multiple calls to her mother in [facility]. to come and get her. She attends groups only sporadically. If the homeless retirement in [facility] is her only option, she says "I'll make other plans.". Review of Systems Constitutional: No fever, No chills, No sweats, No weight loss, No weakness, No fatigue, No problem reported ENT: No hearing loss, No unusual epistaxis, No nasal symptoms, No sore throat, No tinnitus, No dental problems, No trouble swallowing, No problem reported Respiratory: No cough, No sputum, No wheezing, No shortness of breath, No dyspnea on exertion, No dyspnea at rest, No hemoptysis, No problem reported Cardiovascular: No chest pain, No orthopnea, No PND, No edema, No claudication , No palpitations, No problem reported Abdomen: No pain, No nausea, No vomiting, No diarrhea, No constipation, No GI bleeding, No problem reported Musculoskeletal: No joint pain, No muscle pain, No swelling, No calf pain, No problem reported Neurologic: No memory loss, No paralysis, No weakness, No numbness/tingling, No vertigo, No balance problems, No problem reported Psychiatric: + problem reported (paranoia) Integumentary: No rash, No itch, No new/changing skin lesions, No color change , No bleeding, No problem reported Medication Side Effects: Sedation Sleep Information Total Hours of Sleep: 7.50 Meal Information Percent of Breakfast Consumed: 100 Percent of Lunch Consumed: 80 Percent of Dinner Consumed: 0 Mental Status Exam During interview pt is: alert and oriented Appearance: appropriately dressed, disheveled Eye contact is: fair, poor Motor behavior is: steady gait & station, no abnormal motor movements Speech: normal in rate, rhythm & volume (nonspontaneous, but does answer questions) Affect: blunted (but able to smile), anxious, constricted, other (appears fearful and paranoid) Mood is: other ("good") Thought process: perseveration (about phone her mother to see if she can stay with her), other (disorganized) Thought content: paranoid (does not feel safe on the unit as she thinks there are zombies here and they may harm her), persecution Suicidal thought are: denied Homicidal thoughts are: denied (but believe she is in danger) Hallucinations: denies auditory, denies visual Cognition: memory grossly intact, language grossly intact, other (attention impaired) Intelligence estimated to be: average Insight: impaired Judgement: impaired Impression Today the patient is denying problems with mood or psychosis, but as recently as yesterday was paranoid and depressed. She is focused on her family taking her in, which they have said they won't. There are no local resources available at this time in terms of housing or assistance, but the homeless retirement in [facility] will take her and she could then be closer to her sister Luda who has not yet pulled her complete support. She has now had her first 2 Sustenna injections, and we continue Invega 6 mg at HS in view on ongoing psychosis. We will continue to explore all options for housing and aftercare while we continue to adjust her medications. Plan (1) Paranoid schizophrenia 1. Safety - inpatient is least restrictive and most appropriate setting for care due to ongoing AH prompting SI with plan, disorganization and paranoid delusions of others harming her resulting in statement "I am going to be violent" and limited ability to care for self in this disorganized state - milieu, group therapy, and while still verbalizing thoughts of violence Medically necessary private room 2. Medications - Risperdal 1mg/hs with 0.5mg po tid prn watching for orthostasis, and sedation , 10/19/16 will get FBS and Fasting lipids; watch tachycardia may be agitation of psychosis but could be SE or risperdal - change klonopin to prn ativan for severe agitation due to shorter half life and need to monitor sedation 3. Obtain prior records from [facility] to learn about past med trials, efficacy and side effects, if risperdal is efficacious consider Consta or Invega to foster compliance if no contraindications and accessible 10/19 - Increase Risperdal to 1 mg. AM and 1.5 mg. HS - Obtain supplemental from family 10/20 - Continue current meds - Work toward an BANKS 10/21 - Increase Risperidone to 2 mg PO qAM and 3 mg HS 10/22 - Some improvement in the that auditory and visual hallucinations seem less intrusive. However, she seems to have acted out when her breakfast tray was delivered later than she expected by calling 911 and telling the tier lift operator that we are "starving her." We were able to process that in our session. - Increase risperidone to 2 mg qam and 4 mg HS. 10/23 - Continue current medications - Assist with reality orientation 10/24 - Increase Risperdal to 2 mg. AM and 5 mg HS - Add Klonopin 1 mg. AM - Phone conversation with sister Luda 10/25 - Continue current meds 10/26 - Meeting with sister scheduled for 10/29 - Cont risperidone, consider need to increase dose further vs add a second antipsychotic if psychosis does not improve further - Encourage group attendance/participation/reality testing - Discontinue clonazepam as patient is refusing to take it. Continue lorazepam 1mg tid prn. 10/27 - Increase Risperdal to 3 mg. AM and 6 mg HS to target psychosis - Patient refused to consider Invega or any BANKS 10/28 - Now willing for BANKS. Will start Sustenna 234 mg IM today with 2nd injection of 156 mg on day 4 - Will DC risperdal and order Invega po 6 mg HS as we make the transition. 10/29 - discussed augmenting Invega with a typical for acute symptom relief. She is adamant that she read "horrible things" about Haldol. Offered/ declined Trilafon. Offered standing order benzo for now, patient also declined. 10/30 - continues to refuse augmentation with an additional antipsychotic, wanting to attribute some of her symptoms to the medication. Continue oral Invega until she gets her second loading dose, and will then discontinue. 10/31 - continue current plan for medications (second Sustenna loading dose due today), and order Haldol both by mouth and IM as needed. If she will agree to take any other typical antipsychotic, would be willing to order it, but currently is refusing to take anything for her psychosis. - Patient states that she thinks she can go live with her mother in [place], despite having never discussed this with her mother in the past. She plans to call her mother today, and will let staff know if mother is willing to explore this option, and which case a family meeting will need to be scheduled. 11/01 - Continue to explore housing and aftercare plans - Continue current meds (2) Obesity - obtain fasting lipids and blood sugar - monitor and consider metformin to offset weight gain of AAP - encourage physical activity as tolerated to reduce risk of gain 10/19 - FLP normal, glucose elevated 100. Will require ongoing monitoring as obese and on atypical antipsychotic. 10/23 -The patient is eating to excess, necessitating that the staff lockup food in the common areas. She is eating 100% of all 3 meals plus snacks. (3) Hypertension 10/18 - Lisinopril 25mg daily started. Will need f/u with PCP. Discharge / Aftercare Planning Primary Care Physician: Name: Unknown Therapist: Name: Unknown Turner Off: Name: Unknown Visit Code E&M Code: 98824 Inventory Assets Strengths: voluntary for admission, supportive family (allbeit geographically ), locked unit Needs: assurance of aftercare and treatment plan to foster compliance clarification of her job and housing status Risk Factors Assessment : No /single/: Yes Higher / Fall in social status: No Health problems: No Mental Health Diagnoses: Yes Substance use disorders: No Previous attempt: Yes Previous attempt; planned: No Previous attempt; didn't tell: Yes Family history of suicide: No Previous psychiatric stay: Yes Hopelessness: Yes Smoker: No Protective Factors Assessment Pentecostalism beliefs: Yes : No Responsible for young children: No Employed: No Stable relationships: No Supportive family: Yes Good rapport with provider: No Absence of risk factors above: No Data Vital Signs Last 24 Hrs: Date Time Temp Pulse Resp B/P (MAP) Pulse Ox O2 Delivery O2 Flow Rate FiO2 11/01/16 06:32 36.6 92 18 127/84 94 123/88 Meds Administered Last 24 Hrs: Meds Administered (Past 24Hrs) Medications (Trade) Dose Ordered Sig/Stacey Route Start Time Stop Time Status Last Admin Dose Admin Paliperidone Palmitate (Invega Sustenna) 156 mg ONE ONCE IM 10/31/16 11:15 10/31/16 11:16 DC 10/31/16 13:20 156 MG Lab Results Last 24 Hrs: 10/17/16 11:57 Red Blood Count 4.55, Mean Corpuscular Volume 80.0, Mean Corpuscular Hemoglobin 26.4, Mean Corpuscular Hemoglobin Concent 33.0, Mean Platelet Volume 8.9, Neutrophils (%) (Auto) 62.4, Lymphocytes (%) (Auto) 26.6, Monocytes (%) (Auto) 8.9, Eosinophils (%) (Auto) 1.6, Basophils (%) (Auto) 0.4, Neutrophils # (Auto) 4.41, Lymphocytes # (Auto) 1.88, Monocytes # (Auto) 0.63, Eosinophils # (Auto) 0.11, Basophils # (Auto) 0.03 10/17/16 11:57 Test 10/17/16 11:00 10/17/16 11:57 10/19/16 06:10 Urine Color YELLOW Urine Appearance CLEAR (CLEAR) Urine pH 6.5 (4.5-7.5) Urine Specific [place] 1.017 (1.000-1.030) Urine Protein NEG (NEG) Urine Glucose (UA) NEG (NEG) Urine Ketones NEG (NEG) Urine Occult Blood TRACE (NEG) Urine Nitrite NEG (NEG) Urine Bilirubin NEG (NEG) Urine Urobilinogen NEG (NEG) Urine Leukocyte Esterase NEG (NEG) Urine WBC (Auto) 1-5 /hpf (0-5) Urine RBC (Auto) 0-4 /hpf (0-4) Urine Hyaline Casts (Auto) 1-5 /lpf (0-5) Urine Epithelial Cells (Auto) >30 /lpf (0-5) Urine Bacteria (Auto) 1+ (NEG) Urine Test NEG (NEG) Urine Synthetic Stimulants see note Urine Opiates Screen NEG (NEG) Urine Methadone, Qualitative NEG (NEG) Urine Barbiturates NEG (NEG) Urine Phencyclidine (PCP) Level NEG (NEG) Ur Amphetamine/Methamphetamine NEG (NEG) MDMA (Ecstasy) Screen NEG (NEG) Urine Benzodiazepines Screen NEG (NEG) Urine Cocaine Metabolite NEG (NEG) Cannabinoids Comment see note Urine Synthetic Cannabinoids NEGATIVE (Negative) Ur Synthetic Cannabinoids Confirm (()) Urine Marijuana (THC) NEG (NEG) White Blood Count 7.07 K/uL (4.8-10.8) Red Blood Count 4.55 M/uL (4.2-5.4) Hemoglobin 12.0 g/dL (12.0-16.0) Hematocrit 36.4 % (37-47) Mean Corpuscular Volume 80.0 fL (80-100) Mean Corpuscular Hemoglobin 26.4 pg (25-34) Mean Corpuscular Hemoglobin Concent 33.0 g/dl (32-36) Platelet Count 299 K/uL (130-400) Mean Platelet Volume 8.9 fL (7.4-10.4) Neutrophils (%) (Auto) 62.4 % Lymphocytes (%) (Auto) 26.6 % Monocytes (%) (Auto) 8.9 % Eosinophils (%) (Auto) 1.6 % Basophils (%) (Auto) 0.4 % Neutrophils # (Auto) 4.41 K/uL (1.4-6.5) Lymphocytes # (Auto) 1.88 K/uL (1.2-3.4) Monocytes # (Auto) 0.63 K/uL (0.11-0.59) Eosinophils # (Auto) 0.11 K/uL (0-0.5) Basophils # (Auto) 0.03 K/uL (0-0.2) RDW Standard Deviation 44.9 fL (36.4-46.3) RDW Coefficient of Variation 15.4 % (11.5-14.5) Immature Granulocyte % (Auto) 0.1 % Immature Granulocyte # (Auto) 0.01 K/uL (0.00-0.02) Anion Gap 7.0 mmol/L (3-11) Est Creatinine Clear Calc Drug Dose 98.7 ml/min Estimated GFR () 86.2 Estimated GFR (Non- 74.4 BUN/Creatinine Ratio 10.0 (10-20) Calcium Level 8.6 mg/dl (8.5-10.1) Total Bilirubin 0.3 mg/dl (0.2-1) Aspartate Amino Transf (AST/SGOT) 25 U/L (15-37) Alanine Aminotransferase (ALT/SGPT) 50 U/L (12-78) Alkaline Phosphatase 83 U/L (45-117) Total Protein 7.0 gm/dl (6.4-8.2) Albumin 3.3 gm/dl (3.4-5.0) Globulin 3.7 gm/dl (2.5-4.0) Albumin/Globulin Ratio 0.9 (0.9-2) Thyroid Stimulating Hormone (TSH) 0.641 uIu/ml (0.300-4.500) Salicylates Level < 1.7 mg/dl (2.8-20) Acetaminophen Level < 2 ug/ml (10-30) Ethyl Alcohol mg/dL < 3.0 mg/dl (0-3) Fasting Glucose 100 mg/dl (70-99) Triglycerides Level 125 mg/dl (0-150) Cholesterol Level 166 mg/dl (0-200) HDL Cholesterol 47 mg/dl LDL Cholesterol, Calculated 94 mg/dl VLDL Cholesterol, Calculated 25 mg/dl Cholesterol/HDL Ratio 3.5 Date/Time Source Procedure Growth Status 10/17/16 11:00 Urine , Clean Catch Urine Culture - Final THREE TYPES OF ORGANISMS PRESENT, ALL... Complete Problem Qualifiers (1) Obesity: Obesity type: due to excess calories
[2016-11-01] MEDS: LORAZEPAM 1 MG TAB PO PRN (17:10)
[2016-11-01] MEDS: PALIPERIDONE 3 MG TABCR PO SCH (21:29)
[2016-11-02 06:50] VITALS: BP_SYST 110; BP_SYST 124; BP_DIAS 75; BP_DIAS 82; PULSE 93; TEMP 36.9
[2016-11-02] MEDS: MULTIVITAMIN TAB PO SCH (08:44)
[2016-11-02] MEDS: HYDROCHLOROTHIAZIDE 25 MG TAB PO SCH (08:44)
--- NOTE | 2016-11-02 12:44 | Psychiatric Progress Notes ---
Progress Note Date of Service Nov 02, 2016. Interval History 41 yo female admitted voluntarily on 10/18/16 with an acute exacerbation of paranoid schizophrenia after being off of her medications. Chief Complaint "I don't think I need to be here". Subjective Patient was seen & assessed interval progress reviewed with Treatment Team. Patient continues to feel paranoid that there are zombies here on the unit and fears they will harm her. Tolerating medications well. Expresses plan of wanting to go live with her mother in [place] but admits that she has not been able to contact her mother and is not sure that she has a valid telephone number. Review of Systems Medication Side Effects: Sedation Sleep Information Total Hours of Sleep: 7.50 Meal Information Percent of Breakfast Consumed: 100 Percent of Lunch Consumed: 100 Percent of Dinner Consumed: 100 Mental Status Exam During interview pt is: alert and oriented Appearance: appropriately dressed, disheveled Eye contact is: fair, poor Motor behavior is: steady gait & station, no abnormal motor movements Speech: normal in rate, rhythm & volume (nonspontaneous, but does answer questions) Affect: blunted (but able to smile), anxious, constricted, other (appears fearful and paranoid) Mood is: other ("good") Thought process: perseveration (about phone her mother to see if she can stay with her), other (disorganized) Thought content: paranoid (does not feel safe on the unit as she thinks there are zombies here and they may harm her), persecution Suicidal thought are: denied Homicidal thoughts are: denied (but believe she is in danger) Hallucinations: denies auditory, denies visual Cognition: memory grossly intact, language grossly intact, other (attention impaired) Intelligence estimated to be: average Insight: impaired Judgement: impaired Impression Today the patient is denying problems with mood or psychosis, but as recently as yesterday was paranoid and depressed. She is focused on her family taking her in, which they have said they won't. There are no local resources available at this time in terms of housing or assistance, but the homeless detention in [facility] will take her and she could then be closer to her sister Luda who has not yet pulled her complete support. She has now had her first 2 Sustenna injections, and we continue Invega 6 mg at HS in view on ongoing psychosis. We will continue to explore all options for housing and aftercare while we continue to adjust her medications. Plan (1) Paranoid schizophrenia 1. Safety - inpatient is least restrictive and most appropriate setting for care due to ongoing AH prompting SI with plan, disorganization and paranoid delusions of others harming her resulting in statement "I am going to be violent" and limited ability to care for self in this disorganized state - milieu, group therapy, and while still verbalizing thoughts of violence Medically necessary private room 2. Medications - Risperdal 1mg/hs with 0.5mg po tid prn watching for orthostasis, and sedation , 10/19/16 will get FBS and Fasting lipids; watch tachycardia may be agitation of psychosis but could be SE or risperdal - change klonopin to prn ativan for severe agitation due to shorter half life and need to monitor sedation 3. Obtain prior records from [employer] to learn about past med trials, efficacy and side effects, if risperdal is efficacious consider Consta or Invega to foster compliance if no contraindications and accessible 10/19 - Increase Risperdal to 1 mg. AM and 1.5 mg. HS - Obtain supplemental from family 10/20 - Continue current meds - Work toward an BANKS 10/21 - Increase Risperidone to 2 mg PO qAM and 3 mg HS 10/22 - Some improvement in the that auditory and visual hallucinations seem less intrusive. However, she seems to have acted out when her breakfast tray was delivered later than she expected by calling 911 and telling the tumbler drier operator that we are "starving her." We were able to process that in our session. - Increase risperidone to 2 mg qam and 4 mg HS. 10/23 - Continue current medications - Assist with reality orientation 10/24 - Increase Risperdal to 2 mg. AM and 5 mg HS - Add Klonopin 1 mg. AM - Phone conversation with sister Luda 10/25 - Continue current meds 10/26 - Meeting with sister scheduled for 10/29 - Cont risperidone, consider need to increase dose further vs add a second antipsychotic if psychosis does not improve further - Encourage group attendance/participation/reality testing - Discontinue clonazepam as patient is refusing to take it. Continue lorazepam 1mg tid prn. 10/27 - Increase Risperdal to 3 mg. AM and 6 mg HS to target psychosis - Patient refused to consider Invega or any BANKS 10/28 - Now willing for BANKS. Will start Sustenna 234 mg IM today with 2nd injection of 156 mg on day 4 - Will DC risperdal and order Invega po 6 mg HS as we make the transition. 10/29 - discussed augmenting Invega with a typical for acute symptom relief. She is adamant that she read "horrible things" about Haldol. Offered/ declined Trilafon. Offered standing order benzo for now, patient also declined. 10/30 - continues to refuse augmentation with an additional antipsychotic, wanting to attribute some of her symptoms to the medication. Continue oral Invega until she gets her second loading dose, and will then discontinue. 10/31 - continue current plan for medications (second Sustenna loading dose due today), and order Haldol both by mouth and IM as needed. If she will agree to take any other typical antipsychotic, would be willing to order it, but currently is refusing to take anything for her psychosis. - Patient states that she thinks she can go live with her mother in [place], despite having never discussed this with her mother in the past. She plans to call her mother today, and will let staff know if mother is willing to explore this option, and which case a family meeting will need to be scheduled. 11/01 - Continue to explore housing and aftercare plans - Continue current meds 11/02 -Continue current medications and explore aftercare plans. (2) Obesity - obtain fasting lipids and blood sugar - monitor and consider metformin to offset weight gain of AAP - encourage physical activity as tolerated to reduce risk of gain 10/19 - FLP normal, glucose elevated 100. Will require ongoing monitoring as obese and on atypical antipsychotic. 10/23 -The patient is eating to excess, necessitating that the staff lockup food in the common areas. She is eating 100% of all 3 meals plus snacks. (3) Hypertension 10/18 - Lisinopril 25mg daily started. Will need f/u with PCP. Discharge / Aftercare Planning Primary Care Physician: Name: Unknown Therapist: Name: Unknown Fire Protection Fabricator: Name: Unknown Visit Code E&M Code: 62042 Inventory Assets Strengths: voluntary for admission, supportive family (allbeit geographically ), locked unit Needs: assurance of aftercare and treatment plan to foster compliance clarification of her job and housing status Risk Factors Assessment : No /single/: Yes Higher / Fall in social status: No Health problems: No Mental Health Diagnoses: Yes Substance use disorders: No Previous attempt: Yes Previous attempt; planned: No Previous attempt; didn't tell: Yes Family history of suicide: No Previous psychiatric stay: Yes Hopelessness: Yes Smoker: No Protective Factors Assessment Lutheran beliefs: Yes : No Responsible for young children: No Employed: No Stable relationships: No Supportive family: Yes Good rapport with provider: No Absence of risk factors above: No Data Vital Signs Last 24 Hrs: Date Time Temp Pulse Resp B/P (MAP) Pulse Ox O2 Delivery O2 Flow Rate FiO2 11/02/16 06:50 36.9 93 18 110/75 93 124/82 Problem Qualifiers (1) Obesity: Obesity type: due to excess calories
[2016-11-02] MEDS: ACETAMINOPHEN 325 MG TAB PO PRN (20:30)
[2016-11-02] MEDS: PALIPERIDONE 3 MG TABCR PO SCH (21:00)
[2016-11-03 06:51] VITALS: BP_SYST 115; BP_SYST 122; BP_DIAS 77; BP_DIAS 80; PULSE 87; PULSE 91; TEMP 36.8
[2016-11-03] MEDS: MULTIVITAMIN TAB PO SCH (08:18)
[2016-11-03] MEDS: HYDROCHLOROTHIAZIDE 25 MG TAB PO SCH (08:18)
--- NOTE | 2016-11-03 10:51 | Psychiatric Progress Notes ---
Progress Note Date of Service Nov 03, 2016. Interval History 41 yo female admitted voluntarily on 10/18/16 with an acute exacerbation of paranoid schizophrenia after being off of her medications. Chief Complaint "Can we call my mother from your cell phone?". Subjective Patient was seen & assessed interval progress reviewed with Treatment Team. The patient has repeatedly been trying to call her mother in [place], who is not picking up. She remains hopeful that mother will change her mind and allow her to live with them. Today she is once again saying that her mood is good, she is feeling ready to discharge and denying aud/vis hallucinations. She even specifically denies that she is seeing people as zombies. She denies side effects to meds. We discuss the likely discharge plan that includes her sister Luda picking her up and transporting her to the homeless long-term in [place] and she voices no objection to this. Review of Systems Constitutional: No fever, No chills, No sweats, No weight loss, No weakness, No fatigue, No problem reported ENT: No hearing loss, No unusual epistaxis, No nasal symptoms, No sore throat, No tinnitus, No dental problems, No trouble swallowing, No problem reported Respiratory: No cough, No sputum, No wheezing, No shortness of breath, No dyspnea on exertion, No dyspnea at rest, No hemoptysis, No problem reported Cardiovascular: No chest pain, No orthopnea, No PND, No edema, No claudication , No palpitations, No problem reported Abdomen: No pain, No nausea, No vomiting, No diarrhea, No constipation, No GI bleeding, No problem reported Musculoskeletal: No joint pain, No muscle pain, No swelling, No calf pain, No problem reported Neurologic: No memory loss, No paralysis, No weakness, No numbness/tingling, No vertigo, No balance problems, No problem reported Psychiatric: No depression symptoms, No anhedonism, No anxiety, No insomnia, No substance abuse, No problem reported Integumentary: No rash, No itch, No new/changing skin lesions, No color change , No bleeding, No problem reported Medication Side Effects: Sedation Sleep Information Total Hours of Sleep: 7.75 Meal Information Percent of Breakfast Consumed: 100 Percent of Lunch Consumed: 70 Percent of Dinner Consumed: 100 Mental Status Exam During interview pt is: alert and oriented Appearance: appropriately dressed, appropriately groomed Eye contact is: good Motor behavior is: steady gait & station, no abnormal motor movements Speech: normal in rate, rhythm & volume (nonspontaneous, but does answer questions) Affect: euthymic, anxious, constricted, other (appears fearful and paranoid) Mood is: other ("good") Thought process: perseveration (about phone her mother to see if she can stay with her), other (disorganized) Thought content: paranoid (does not feel safe on the unit as she thinks there are zombies here and they may harm her), persecution Suicidal thought are: denied Homicidal thoughts are: denied (but believe she is in danger) Hallucinations: denies auditory, denies visual Cognition: memory grossly intact, language grossly intact, other (attention impaired) Intelligence estimated to be: average Insight: impaired Judgement: impaired Impression Improving, and working toward discharge. Our only option for housing is a homeless long-term in [facility], near her sister Luda. She has applied for MA and when in effect, can make appts for aftercare near the homeless long-term. Luda has said that she will be able to transport, so will talk with her today to see what day she is available. Plan (1) Paranoid schizophrenia 1. Safety - inpatient is least restrictive and most appropriate setting for care due to ongoing AH prompting SI with plan, disorganization and paranoid delusions of others harming her resulting in statement "I am going to be violent" and limited ability to care for self in this disorganized state - milieu, group therapy, and while still verbalizing thoughts of violence Medically necessary private room 2. Medications - Risperdal 1mg/hs with 0.5mg po tid prn watching for orthostasis, and sedation , 10/19/16 will get FBS and Fasting lipids; watch tachycardia may be agitation of psychosis but could be SE or risperdal - change klonopin to prn ativan for severe agitation due to shorter half life and need to monitor sedation 3. Obtain prior records from [facility] to learn about past med trials, efficacy and side effects, if risperdal is efficacious consider Consta or Invega to foster compliance if no contraindications and accessible 10/19 - Increase Risperdal to 1 mg. AM and 1.5 mg. HS - Obtain supplemental from family 10/20 - Continue current meds - Work toward an BANKS 10/21 - Increase Risperidone to 2 mg PO qAM and 3 mg HS 10/22 - Some improvement in the that auditory and visual hallucinations seem less intrusive. However, she seems to have acted out when her breakfast tray was delivered later than she expected by calling 911 and telling the shredder/granulator operator that we are "starving her." We were able to process that in our session. - Increase risperidone to 2 mg qam and 4 mg HS. 10/23 - Continue current medications - Assist with reality orientation 10/24 - Increase Risperdal to 2 mg. AM and 5 mg HS - Add Klonopin 1 mg. AM - Phone conversation with sister Luda 10/25 - Continue current meds 10/26 - Meeting with sister scheduled for 10/29 - Cont risperidone, consider need to increase dose further vs add a second antipsychotic if psychosis does not improve further - Encourage group attendance/participation/reality testing - Discontinue clonazepam as patient is refusing to take it. Continue lorazepam 1mg tid prn. 10/27 - Increase Risperdal to 3 mg. AM and 6 mg HS to target psychosis - Patient refused to consider Invega or any BANKS 10/28 - Now willing for BANKS. Will start Sustenna 234 mg IM today with 2nd injection of 156 mg on day 4 - Will DC risperdal and order Invega po 6 mg HS as we make the transition. 10/29 - discussed augmenting Invega with a typical for acute symptom relief. She is adamant that she read "horrible things" about Haldol. Offered/ declined Trilafon. Offered standing order benzo for now, patient also declined. 10/30 - continues to refuse augmentation with an additional antipsychotic, wanting to attribute some of her symptoms to the medication. Continue oral Invega until she gets her second loading dose, and will then discontinue. 10/31 - continue current plan for medications (second Sustenna loading dose due today), and order Haldol both by mouth and IM as needed. If she will agree to take any other typical antipsychotic, would be willing to order it, but currently is refusing to take anything for her psychosis. - Patient states that she thinks she can go live with her mother in [place], despite having never discussed this with her mother in the past. She plans to call her mother today, and will let staff know if mother is willing to explore this option, and which case a family meeting will need to be scheduled. 11/01 - Continue to explore housing and aftercare plans - Continue current meds 11/02 -Continue current medications and explore aftercare plans. (2) Obesity - obtain fasting lipids and blood sugar - monitor and consider metformin to offset weight gain of AAP - encourage physical activity as tolerated to reduce risk of gain 10/19 - FLP normal, glucose elevated 100. Will require ongoing monitoring as obese and on atypical antipsychotic. 10/23 -The patient is eating to excess, necessitating that the staff lockup food in the common areas. She is eating 100% of all 3 meals plus snacks. (3) Hypertension 10/18 - Lisinopril 25mg daily started. Will need f/u with PCP. Discharge / Aftercare Planning Primary Care Physician: Name: Unknown Therapist: Name: Unknown Stack Yield Engineer: Name: Unknown Visit Code E&M Code: 17858 Inventory Assets Strengths: voluntary for admission, supportive family (allbeit geographically ), locked unit Needs: assurance of aftercare and treatment plan to foster compliance clarification of her job and housing status Risk Factors Assessment : No /single/: Yes Higher / Fall in social status: No Health problems: No Mental Health Diagnoses: Yes Substance use disorders: No Previous attempt: Yes Previous attempt; planned: No Previous attempt; didn't tell: Yes Family history of suicide: No Previous psychiatric stay: Yes Hopelessness: Yes Smoker: No Protective Factors Assessment Church beliefs: Yes : No Responsible for young children: No Employed: No Stable relationships: No Supportive family: Yes Good rapport with provider: No Absence of risk factors above: No Data Vital Signs Last 24 Hrs: Date Time Temp Pulse Resp B/P (MAP) Pulse Ox O2 Delivery O2 Flow Rate FiO2 11/03/16 06:51 36.8 91 18 122/77 87 115/80 Meds Administered Last 24 Hrs: Current Inpatient Medications Medications (Trade) Dose Ordered Sig/Stacey Route Start Time Stop Time Status Last Admin Dose Admin Acetaminophen (Tylenol Tab) 650 mg Q4H PRN PO 10/17/16 17:30 11/16/16 17:29 11/02/16 20:30 650 MG Bismuth Subsalicylate (Kaopectate Liqd) 15 ml PRN PRN PO 10/17/16 17:30 11/16/16 17:29 10/18/16 21:17 15 ML Al Hydroxide/Mg Hydroxide (Maalox Susp) 30 ml Q4H PRN PO 10/17/16 17:30 11/16/16 17:29 10/24/16 06:41 30 ML Magnesium Hydroxide (Milk Of Magnesia Susp) 30 ml DAILY PRN PO 10/17/16 17:30 11/16/16 17:29 Sodium Chloride ([employer] Nasal [place]) PRN PRN NA 10/17/16 17:30 11/16/16 17:29 Hydroxyzine HCl (Vistaril Tab) 50 mg HSZ PRN PO 10/17/16 17:30 11/16/16 17:29 Hydroxyzine HCl (Vistaril Tab) 25 mg Q4H PRN PO 10/17/16 17:30 11/16/16 17:29 10/21/16 09:08 25 MG Hydrochlorothiazide (Hydrochlorothiazide Tab) 25 mg DAILY PO 10/18/16 09:00 11/17/16 08:59 11/03/16 08:18 25 MG Lorazepam (Ativan Tab) 1 mg TID PRN PO 10/18/16 12:45 11/17/16 12:44 11/01/16 17:10 1 MG Ibuprofen (Motrin Tab) 600 mg TID PRN PO 10/23/16 19:30 11/22/16 19:29 10/27/16 19:03 600 MG Paliperidone (Invega) 6 mg HS PO 10/28/16 22:00 11/27/16 21:59 11/02/16 21:00 6 MG Benztropine Mesylate (Cogentin Tab) 2 mg Q4H PRN PO 10/28/16 11:15 11/27/16 11:14 Multivitamins (Multivitamin Tab) 1 tab QAM PO 10/30/16 09:00 11/29/16 08:59 11/03/16 08:18 1 TAB Haloperidol (Haldol Tab) 5 mg Q4H PRN PO 10/31/16 08:45 11/30/16 08:44 Haloperidol Lactate (Haldol Inj) 5 mg Q4 PRN IM 10/31/16 08:45 11/30/16 08:44 Lab Results Last 24 Hrs: 10/17/16 11:57 Red Blood Count 4.55, Mean Corpuscular Volume 80.0, Mean Corpuscular Hemoglobin 26.4, Mean Corpuscular Hemoglobin Concent 33.0, Mean Platelet Volume 8.9, Neutrophils (%) (Auto) 62.4, Lymphocytes (%) (Auto) 26.6, Monocytes (%) (Auto) 8.9, Eosinophils (%) (Auto) 1.6, Basophils (%) (Auto) 0.4, Neutrophils # (Auto) 4.41, Lymphocytes # (Auto) 1.88, Monocytes # (Auto) 0.63, Eosinophils # (Auto) 0.11, Basophils # (Auto) 0.03 10/17/16 11:57 Test 10/17/16 11:00 10/17/16 11:57 10/19/16 06:10 Urine Color YELLOW Urine Appearance CLEAR (CLEAR) Urine pH 6.5 (4.5-7.5) Urine Specific [place] 1.017 (1.000-1.030) Urine Protein NEG (NEG) Urine Glucose (UA) NEG (NEG) Urine Ketones NEG (NEG) Urine Occult Blood TRACE (NEG) Urine Nitrite NEG (NEG) Urine Bilirubin NEG (NEG) Urine Urobilinogen NEG (NEG) Urine Leukocyte Esterase NEG (NEG) Urine WBC (Auto) 1-5 /hpf (0-5) Urine RBC (Auto) 0-4 /hpf (0-4) Urine Hyaline Casts (Auto) 1-5 /lpf (0-5) Urine Epithelial Cells (Auto) >30 /lpf (0-5) Urine Bacteria (Auto) 1+ (NEG) Urine Test NEG (NEG) Urine Synthetic Stimulants see note Urine Opiates Screen NEG (NEG) Urine Methadone, Qualitative NEG (NEG) Urine Barbiturates NEG (NEG) Urine Phencyclidine (PCP) Level NEG (NEG) Ur Amphetamine/Methamphetamine NEG (NEG) MDMA (Ecstasy) Screen NEG (NEG) Urine Benzodiazepines Screen NEG (NEG) Urine Cocaine Metabolite NEG (NEG) Cannabinoids Comment see note Urine Synthetic Cannabinoids NEGATIVE (Negative) Ur Synthetic Cannabinoids Confirm (()) Urine Marijuana (THC) NEG (NEG) White Blood Count 7.07 K/uL (4.8-10.8) Red Blood Count 4.55 M/uL (4.2-5.4) Hemoglobin 12.0 g/dL (12.0-16.0) Hematocrit 36.4 % (37-47) Mean Corpuscular Volume 80.0 fL (80-100) Mean Corpuscular Hemoglobin 26.4 pg (25-34) Mean Corpuscular Hemoglobin Concent 33.0 g/dl (32-36) Platelet Count 299 K/uL (130-400) Mean Platelet Volume 8.9 fL (7.4-10.4) Neutrophils (%) (Auto) 62.4 % Lymphocytes (%) (Auto) 26.6 % Monocytes (%) (Auto) 8.9 % Eosinophils (%) (Auto) 1.6 % Basophils (%) (Auto) 0.4 % Neutrophils # (Auto) 4.41 K/uL (1.4-6.5) Lymphocytes # (Auto) 1.88 K/uL (1.2-3.4) Monocytes # (Auto) 0.63 K/uL (0.11-0.59) Eosinophils # (Auto) 0.11 K/uL (0-0.5) Basophils # (Auto) 0.03 K/uL (0-0.2) RDW Standard Deviation 44.9 fL (36.4-46.3) RDW Coefficient of Variation 15.4 % (11.5-14.5) Immature Granulocyte % (Auto) 0.1 % Immature Granulocyte # (Auto) 0.01 K/uL (0.00-0.02) Anion Gap 7.0 mmol/L (3-11) Est Creatinine Clear Calc Drug Dose 98.7 ml/min Estimated GFR () 86.2 Estimated GFR (Non- 74.4 BUN/Creatinine Ratio 10.0 (10-20) Calcium Level 8.6 mg/dl (8.5-10.1) Total Bilirubin 0.3 mg/dl (0.2-1) Aspartate Amino Transf (AST/SGOT) 25 U/L (15-37) Alanine Aminotransferase (ALT/SGPT) 50 U/L (12-78) Alkaline Phosphatase 83 U/L (45-117) Total Protein 7.0 gm/dl (6.4-8.2) Albumin 3.3 gm/dl (3.4-5.0) Globulin 3.7 gm/dl (2.5-4.0) Albumin/Globulin Ratio 0.9 (0.9-2) Thyroid Stimulating Hormone (TSH) 0.641 uIu/ml (0.300-4.500) Salicylates Level < 1.7 mg/dl (2.8-20) Acetaminophen Level < 2 ug/ml (10-30) Ethyl Alcohol mg/dL < 3.0 mg/dl (0-3) Fasting Glucose 100 mg/dl (70-99) Triglycerides Level 125 mg/dl (0-150) Cholesterol Level 166 mg/dl (0-200) HDL Cholesterol 47 mg/dl LDL Cholesterol, Calculated 94 mg/dl VLDL Cholesterol, Calculated 25 mg/dl Cholesterol/HDL Ratio 3.5 Date/Time Source Procedure Growth Status 10/17/16 11:00 Urine , Clean Catch Urine Culture - Final THREE TYPES OF ORGANISMS PRESENT, ALL... Complete Problem Qualifiers (1) Obesity: Obesity type: due to excess calories
[2016-11-03] MEDS: PALIPERIDONE 3 MG TABCR PO SCH (21:24)
[2016-11-04 06:45] VITALS: BP_SYST 114; BP_SYST 116; BP_DIAS 79; PULSE 101; PULSE 96; TEMP 36.7
[2016-11-04] MEDS: HYDROCHLOROTHIAZIDE 25 MG TAB PO SCH (08:08)
[2016-11-04] MEDS: MULTIVITAMIN TAB PO SCH (08:08)
--- NOTE | 2016-11-04 10:12 | Psychiatric Progress Notes ---
Progress Note Date of Service Nov 04, 2016. Interval History 41 yo female admitted voluntarily on 10/18/16 with an acute exacerbation of paranoid schizophrenia after being off of her medications. Chief Complaint "Can I please go today?" Subjective Patient was seen & assessed interval progress reviewed with nursing. Staff report she The patient approached this physician, asking to be released immediately, saying she thinks she will be "happier outside" the hospital. She continues to change her discharge plans daily, is now saying she will go to [place] to stay with parents, but then says she has not talked to her parents about this and doesn't know how she will get there. She has no outpatient providers and doesn't know how she will get her medications. Her mood is "not happy, because I'm in the hospital," and she denies SI and HI. She denies hallucinations but admits to paranoia and doesn't feel safe, but cannot be more specific. She denies ideas of reference. She says she just wants to leave now, and will figure out her plan after she leaves. Advised that social work has been trying to contact her parents and has made multiple phone calls but has not been able to reach them. Reviewed that we'd like to help her make a plan before she leaves, to include where she will stay, how she will get there, and how she will get treatment there. Her sister was contacted by staff and said she's changed her mind, doesn 't want patient to come to [place] anymore because "it's bad there," and wants her to go live with parents in [place]. Sister is willing to pay for her to get to [place], although it is unclear by what means. Sister contacted staff this morning, stating that the patient called her and said that she wants to be discharged so that she can kill herself, and has called her 4 times already this morning asking her to come pick her up from the hospital. Review of Systems Medication Side Effects: Sedation Sleep Information Total Hours of Sleep: 7.00 Meal Information Percent of Breakfast Consumed: 100 Percent of Lunch Consumed: 100 Percent of Dinner Consumed: 100 Mental Status Exam During interview pt is: alert and oriented, other (intrusive, interrupting and pushing into office) Appearance: appropriately dressed, appropriately groomed Eye contact is: fair Motor behavior is: steady gait & station, psychomotor agitation Speech: normal in rate, rhythm & volume Affect: anxious, constricted Mood is: other ("not happy") Thought process: perseveration (on leaving) Thought content: paranoid Suicidal thought are: denied Homicidal thoughts are: denied Hallucinations: denies auditory, denies visual Cognition: memory grossly intact, language grossly intact, other (attention impaired) Intelligence estimated to be: average Insight: impaired Judgement: impaired Impression Although psychosis is improving, there've been many roadblocks in working toward discharge. As recently as last night, she told her sister that she wanted to leave the hospital so she could commit suicide. We've not been able to identify any options identified for housing, as initially sister Luda was going to help her get set up in [place] where a homeless long term was identified, but has now changed her mind. She and the patient now want patient to go to [place] to live with her parents, but have not actually spoken to her parents about this, and they are not answering their phone. She has nowhere to live, no outpatient providers, and lacks a good safety plan. Plan (1) Paranoid schizophrenia 1. Safety - inpatient is least restrictive and most appropriate setting for care due to ongoing AH prompting SI with plan, disorganization and paranoid delusions of others harming her resulting in statement "I am going to be violent" and limited ability to care for self in this disorganized state - milieu, group therapy, and while still verbalizing thoughts of violence Medically necessary private room 2. Medications - Risperdal 1mg/hs with 0.5mg po tid prn watching for orthostasis, and sedation , 10/19/16 will get FBS and Fasting lipids; watch tachycardia may be agitation of psychosis but could be SE or risperdal - change klonopin to prn ativan for severe agitation due to shorter half life and need to monitor sedation 3. Obtain prior records from [facility] to learn about past med trials, efficacy and side effects, if risperdal is efficacious consider Consta or Invega to foster compliance if no contraindications and accessible 10/19 - Increase Risperdal to 1 mg. AM and 1.5 mg. HS - Obtain supplemental from family 10/20 - Continue current meds - Work toward an BANKS 10/21 - Increase Risperidone to 2 mg PO qAM and 3 mg HS 10/22 - Some improvement in the that auditory and visual hallucinations seem less intrusive. However, she seems to have acted out when her breakfast tray was delivered later than she expected by calling 911 and telling the crematory operator that we are "starving her." We were able to process that in our session. - Increase risperidone to 2 mg qam and 4 mg HS. 10/23 - Continue current medications - Assist with reality orientation 10/24 - Increase Risperdal to 2 mg. AM and 5 mg HS - Add Klonopin 1 mg. AM - Phone conversation with sister Luda 10/25 - Continue current meds 10/26 - Meeting with sister scheduled for 10/29 - Cont risperidone, consider need to increase dose further vs add a second antipsychotic if psychosis does not improve further - Encourage group attendance/participation/reality testing - Discontinue clonazepam as patient is refusing to take it. Continue lorazepam 1mg tid prn. 10/27 - Increase Risperdal to 3 mg. AM and 6 mg HS to target psychosis - Patient refused to consider Invega or any BANKS 10/28 - Now willing for BANKS. Will start Sustenna 234 mg IM today with 2nd injection of 156 mg on day 4 - Will DC risperdal and order Invega po 6 mg HS as we make the transition. 10/29 - discussed augmenting Invega with a typical for acute symptom relief. She is adamant that she read "horrible things" about Haldol. Offered/ declined Trilafon. Offered standing order benzo for now, patient also declined. 10/30 - continues to refuse augmentation with an additional antipsychotic, wanting to attribute some of her symptoms to the medication. Continue oral Invega until she gets her second loading dose, and will then discontinue. 10/31 - continue current plan for medications (second Sustenna loading dose due today), and order Haldol both by mouth and IM as needed. If she will agree to take any other typical antipsychotic, would be willing to order it, but currently is refusing to take anything for her psychosis. - Patient states that she thinks she can go live with her mother in [place], despite having never discussed this with her mother in the past. She plans to call her mother today, and will let staff know if mother is willing to explore this option, and which case a family meeting will need to be scheduled. 11/01 - Continue to explore housing and aftercare plans - Continue current meds 11/02 - Continue current medications and explore aftercare plans. 11/03 - Discontinue oral Invega, and schedule maintenance dose of Invega Sustenna 117 mg IM for 11/28/2016. - Working on discharge planning; no housing as yet identified, as patient's sister is now on willing to assist her in moving to the [place] area. The patient and her sister are hopeful that she can stay with parents in [place], and social work specialist has been trying to get in touch with them to no avail. (2) Obesity - obtain fasting lipids and blood sugar - monitor and consider metformin to offset weight gain of AAP - encourage physical activity as tolerated to reduce risk of gain 10/19 - FLP normal, glucose elevated 100. Will require ongoing monitoring as obese and on atypical antipsychotic. 10/23 -The patient is eating to excess, necessitating that the staff lockup food in the common areas. She is eating 100% of all 3 meals plus snacks. (3) Hypertension 10/18 - Lisinopril 25mg daily started. Will need f/u with PCP. Discharge / Aftercare Planning Primary Care Physician: Name: Unknown Therapist: Name: Unknown Head Wrestling Coach: Name: Unknown Visit Code E&M Code: 14942 Inventory Assets Strengths: voluntary for admission, supportive family (allbeit geographically ), locked unit Needs: assurance of aftercare and treatment plan to foster compliance clarification of her job and housing status Risk Factors Assessment : No /single/: Yes Higher / Fall in social status: No Health problems: No Mental Health Diagnoses: Yes Substance use disorders: No Previous attempt: Yes Previous attempt; planned: No Previous attempt; didn't tell: Yes Family history of suicide: No Previous psychiatric stay: Yes Hopelessness: Yes Smoker: No Protective Factors Assessment [employer]ist beliefs: Yes : No Responsible for young children: No Employed: No Stable relationships: No Supportive family: Yes Good rapport with provider: No Absence of risk factors above: No Data Vital Signs Last 24 Hrs: Date Time Temp Pulse Resp B/P (MAP) Pulse Ox O2 Delivery O2 Flow Rate FiO2 11/04/16 06:45 36.7 101 19 114/79 96 116/79 Problem Qualifiers (1) Obesity: Obesity type: due to excess calories
[2016-11-04] MEDS: BENZOCAINE 20% (ORAJEL) 11.9 GM TUBE MT PRN ×2 (17:34→19:27)
[2016-11-05 06:49] VITALS: BP_SYST 105; BP_SYST 110; BP_DIAS 75; PULSE 94; PULSE 96; TEMP 36.7
[2016-11-05] MEDS: HYDROCHLOROTHIAZIDE 25 MG TAB PO SCH (08:50)
[2016-11-05] MEDS: MULTIVITAMIN TAB PO SCH (08:50)
--- NOTE | 2016-11-05 10:39 | Psychiatric Progress Notes ---
Progress Note Date of Service Nov 05, 2016. Interval History 41 yo female admitted voluntarily on 10/18/16 with an acute exacerbation of paranoid schizophrenia after being off of her medications. Chief Complaint "Good.". Subjective Patient was seen & assessed interval progress reviewed with Treatment Team. The patient is in good spirits today and asking about discharge. We review information from her sister Luda who said that the patient told her she was going to leave and commit suicide. Colette says that she is not suicidal and only said that to try to get her sister to let her live with her. Again today she is denying that she is seeing zombies, or that she is having aud/vis hallucinations. She wants to be discharged and we review that we must talk with her sister about when she can come to transport her to the [facility]. Colette says that she has been grateful for our help. She denies side effects to meds, reports good sleep and appetite. Review of Systems Constitutional: No fever, No chills, No sweats, No weight loss, No weakness, No fatigue, No problem reported ENT: No hearing loss, No unusual epistaxis, No nasal symptoms, No sore throat, No tinnitus, No dental problems, No trouble swallowing, No problem reported Respiratory: No cough, No sputum, No wheezing, No shortness of breath, No dyspnea on exertion, No dyspnea at rest, No hemoptysis, No problem reported Cardiovascular: No chest pain, No orthopnea, No PND, No edema, No claudication , No palpitations, No problem reported Abdomen: No pain, No nausea, No vomiting, No diarrhea, No constipation, No GI bleeding, No problem reported Musculoskeletal: No joint pain, No muscle pain, No swelling, No calf pain, No problem reported Neurologic: No memory loss, No paralysis, No weakness, No numbness/tingling, No vertigo, No balance problems, No problem reported Psychiatric: No depression symptoms, No anhedonism, No anxiety, No insomnia, No substance abuse, No problem reported Integumentary: No rash, No itch, No new/changing skin lesions, No color change , No bleeding, No problem reported Medication Side Effects: Sedation Sleep Information Total Hours of Sleep: 6.50 Meal Information Percent of Breakfast Consumed: 100 Percent of Lunch Consumed: 100 Percent of Dinner Consumed: 100 Mental Status Exam During interview pt is: alert and oriented Appearance: appropriately dressed, appropriately groomed Eye contact is: good Motor behavior is: steady gait & station Speech: normal in rate, rhythm & volume Affect: euthymic (smiling) Mood is: other ("good") Thought process: goal directed Thought content: reality based without delusions Suicidal thought are: denied Homicidal thoughts are: denied Hallucinations: denies auditory, denies visual Cognition: memory grossly intact, language grossly intact, other (attention impaired) Intelligence estimated to be: average Insight: impaired Judgement: impaired Impression The patient admits that she is using threats of suicide to manipulate her family into letting her live with them. She says that she is not actually suicidal nor does she have plans to hurt herself. Since the parents nor her sister are housing options, we will proceed with plans to discharge to the homeless senior care in [place]. Social work will contact Luda with discharge day of Tuesday, but if Tuesday is more convenient, we will accomodate. Will attempt to make aftercare arrangements in [facility] as well. Plan (1) Paranoid schizophrenia 1. Safety - inpatient is least restrictive and most appropriate setting for care due to ongoing AH prompting SI with plan, disorganization and paranoid delusions of others harming her resulting in statement "I am going to be violent" and limited ability to care for self in this disorganized state - milieu, group therapy, and while still verbalizing thoughts of violence Medically necessary private room 2. Medications - Risperdal 1mg/hs with 0.5mg po tid prn watching for orthostasis, and sedation , 10/19/16 will get FBS and Fasting lipids; watch tachycardia may be agitation of psychosis but could be SE or risperdal - change klonopin to prn ativan for severe agitation due to shorter half life and need to monitor sedation 3. Obtain prior records from [facility] to learn about past med trials, efficacy and side effects, if risperdal is efficacious consider Consta or Invega to foster compliance if no contraindications and accessible 10/19 - Increase Risperdal to 1 mg. AM and 1.5 mg. HS - Obtain supplemental from family 10/20 - Continue current meds - Work toward an BANKS 10/21 - Increase Risperidone to 2 mg PO qAM and 3 mg HS 10/22 - Some improvement in the that auditory and visual hallucinations seem less intrusive. However, she seems to have acted out when her breakfast tray was delivered later than she expected by calling 911 and telling the black mill operator that we are "starving her." We were able to process that in our session. - Increase risperidone to 2 mg qam and 4 mg HS. 10/23 - Continue current medications - Assist with reality orientation 10/24 - Increase Risperdal to 2 mg. AM and 5 mg HS - Add Klonopin 1 mg. AM - Phone conversation with sister Luda 10/25 - Continue current meds 10/26 - Meeting with sister scheduled for 10/29 - Cont risperidone, consider need to increase dose further vs add a second antipsychotic if psychosis does not improve further - Encourage group attendance/participation/reality testing - Discontinue clonazepam as patient is refusing to take it. Continue lorazepam 1mg tid prn. 10/27 - Increase Risperdal to 3 mg. AM and 6 mg HS to target psychosis - Patient refused to consider Invega or any BANKS 10/28 - Now willing for BANKS. Will start Sustenna 234 mg IM today with 2nd injection of 156 mg on day 4 - Will DC risperdal and order Invega po 6 mg HS as we make the transition. 10/29 - discussed augmenting Invega with a typical for acute symptom relief. She is adamant that she read "horrible things" about Haldol. Offered/ declined Trilafon. Offered standing order benzo for now, patient also declined. 10/30 - continues to refuse augmentation with an additional antipsychotic, wanting to attribute some of her symptoms to the medication. Continue oral Invega until she gets her second loading dose, and will then discontinue. 10/31 - continue current plan for medications (second Sustenna loading dose due today), and order Haldol both by mouth and IM as needed. If she will agree to take any other typical antipsychotic, would be willing to order it, but currently is refusing to take anything for her psychosis. - Patient states that she thinks she can go live with her mother in [place], despite having never discussed this with her mother in the past. She plans to call her mother today, and will let staff know if mother is willing to explore this option, and which case a family meeting will need to be scheduled. 11/01 - Continue to explore housing and aftercare plans - Continue current meds 11/02 - Continue current medications and explore aftercare plans. 11/03 - Discontinue oral Invega, and schedule maintenance dose of Invega Sustenna 117 mg IM for 11/28/2016. - Working on discharge planning; no housing as yet identified, as patient's sister is now on willing to assist her in moving to the [facility]. The patient and her sister are hopeful that she can stay with parents in [place], and social media campaign manager has been trying to get in touch with them to no avail. 11/05 - Move forward with plans to discharge to homeless senior care in [facility] where she can be near her sister Luda - Will contact Luda today to discuss what day she can come to get her. (2) Obesity - obtain fasting lipids and blood sugar - monitor and consider metformin to offset weight gain of AAP - encourage physical activity as tolerated to reduce risk of gain 10/19 - FLP normal, glucose elevated 100. Will require ongoing monitoring as obese and on atypical antipsychotic. 10/23 -The patient is eating to excess, necessitating that the staff lockup food in the common areas. She is eating 100% of all 3 meals plus snacks. (3) Hypertension 10/18 - Lisinopril 25mg daily started. Will need f/u with PCP. Discharge / Aftercare Planning Primary Care Physician: Name: Unknown Therapist: Name: Unknown Deck And Hull Assembler: Name: Unknown Visit Code E&M Code: 60195 Inventory Assets Strengths: voluntary for admission, supportive family (allbeit geographically ), locked unit Needs: assurance of aftercare and treatment plan to foster compliance clarification of her job and housing status Risk Factors Assessment : No /single/: Yes Higher / Fall in social status: No Health problems: No Mental Health Diagnoses: Yes Substance use disorders: No Previous attempt: Yes Previous attempt; planned: No Previous attempt; didn't tell: Yes Family history of suicide: No Previous psychiatric stay: Yes Hopelessness: Yes Smoker: No Protective Factors Assessment Bahai beliefs: Yes : No Responsible for young children: No Employed: No Stable relationships: No Supportive family: Yes Good rapport with provider: No Absence of risk factors above: No Data Vital Signs Last 24 Hrs: Date Time Temp Pulse Resp B/P (MAP) Pulse Ox O2 Delivery O2 Flow Rate FiO2 11/05/16 06:49 36.7 94 16 105/75 96 110/75 Meds Administered Last 24 Hrs: Meds Administered (Past 24Hrs) Medications (Trade) Dose Ordered Sig/Stacey Route Start Time Stop Time Status Last Admin Dose Admin Benzocaine (Orajel 2% Oral Gel) 1 appln BID PRN MT 11/04/16 12:00 12/04/16 11:59 11/04/16 19:27 1 APPLN Lab Results Last 24 Hrs: 10/17/16 11:57 Red Blood Count 4.55, Mean Corpuscular Volume 80.0, Mean Corpuscular Hemoglobin 26.4, Mean Corpuscular Hemoglobin Concent 33.0, Mean Platelet Volume 8.9, Neutrophils (%) (Auto) 62.4, Lymphocytes (%) (Auto) 26.6, Monocytes (%) (Auto) 8.9, Eosinophils (%) (Auto) 1.6, Basophils (%) (Auto) 0.4, Neutrophils # (Auto) 4.41, Lymphocytes # (Auto) 1.88, Monocytes # (Auto) 0.63, Eosinophils # (Auto) 0.11, Basophils # (Auto) 0.03 10/17/16 11:57 Test 10/17/16 11:00 10/17/16 11:57 10/19/16 06:10 Urine Color YELLOW Urine Appearance CLEAR (CLEAR) Urine pH 6.5 (4.5-7.5) Urine Specific [place] 1.017 (1.000-1.030) Urine Protein NEG (NEG) Urine Glucose (UA) NEG (NEG) Urine Ketones NEG (NEG) Urine Occult Blood TRACE (NEG) Urine Nitrite NEG (NEG) Urine Bilirubin NEG (NEG) Urine Urobilinogen NEG (NEG) Urine Leukocyte Esterase NEG (NEG) Urine WBC (Auto) 1-5 /hpf (0-5) Urine RBC (Auto) 0-4 /hpf (0-4) Urine Hyaline Casts (Auto) 1-5 /lpf (0-5) Urine Epithelial Cells (Auto) >30 /lpf (0-5) Urine Bacteria (Auto) 1+ (NEG) Urine Test NEG (NEG) Urine Synthetic Stimulants see note Urine Opiates Screen NEG (NEG) Urine Methadone, Qualitative NEG (NEG) Urine Barbiturates NEG (NEG) Urine Phencyclidine (PCP) Level NEG (NEG) Ur Amphetamine/Methamphetamine NEG (NEG) MDMA (Ecstasy) Screen NEG (NEG) Urine Benzodiazepines Screen NEG (NEG) Urine Cocaine Metabolite NEG (NEG) Cannabinoids Comment see note Urine Synthetic Cannabinoids NEGATIVE (Negative) Ur Synthetic Cannabinoids Confirm (()) Urine Marijuana (THC) NEG (NEG) White Blood Count 7.07 K/uL (4.8-10.8) Red Blood Count 4.55 M/uL (4.2-5.4) Hemoglobin 12.0 g/dL (12.0-16.0) Hematocrit 36.4 % (37-47) Mean Corpuscular Volume 80.0 fL (80-100) Mean Corpuscular Hemoglobin 26.4 pg (25-34) Mean Corpuscular Hemoglobin Concent 33.0 g/dl (32-36) Platelet Count 299 K/uL (130-400) Mean Platelet Volume 8.9 fL (7.4-10.4) Neutrophils (%) (Auto) 62.4 % Lymphocytes (%) (Auto) 26.6 % Monocytes (%) (Auto) 8.9 % Eosinophils (%) (Auto) 1.6 % Basophils (%) (Auto) 0.4 % Neutrophils # (Auto) 4.41 K/uL (1.4-6.5) Lymphocytes # (Auto) 1.88 K/uL (1.2-3.4) Monocytes # (Auto) 0.63 K/uL (0.11-0.59) Eosinophils # (Auto) 0.11 K/uL (0-0.5) Basophils # (Auto) 0.03 K/uL (0-0.2) RDW Standard Deviation 44.9 fL (36.4-46.3) RDW Coefficient of Variation 15.4 % (11.5-14.5) Immature Granulocyte % (Auto) 0.1 % Immature Granulocyte # (Auto) 0.01 K/uL (0.00-0.02) Anion Gap 7.0 mmol/L (3-11) Est Creatinine Clear Calc Drug Dose 98.7 ml/min Estimated GFR () 86.2 Estimated GFR (Non- 74.4 BUN/Creatinine Ratio 10.0 (10-20) Calcium Level 8.6 mg/dl (8.5-10.1) Total Bilirubin 0.3 mg/dl (0.2-1) Aspartate Amino Transf (AST/SGOT) 25 U/L (15-37) Alanine Aminotransferase (ALT/SGPT) 50 U/L (12-78) Alkaline Phosphatase 83 U/L (45-117) Total Protein 7.0 gm/dl (6.4-8.2) Albumin 3.3 gm/dl (3.4-5.0) Globulin 3.7 gm/dl (2.5-4.0) Albumin/Globulin Ratio 0.9 (0.9-2) Thyroid Stimulating Hormone (TSH) 0.641 uIu/ml (0.300-4.500) Salicylates Level < 1.7 mg/dl (2.8-20) Acetaminophen Level < 2 ug/ml (10-30) Ethyl Alcohol mg/dL < 3.0 mg/dl (0-3) Fasting Glucose 100 mg/dl (70-99) Triglycerides Level 125 mg/dl (0-150) Cholesterol Level 166 mg/dl (0-200) HDL Cholesterol 47 mg/dl LDL Cholesterol, Calculated 94 mg/dl VLDL Cholesterol, Calculated 25 mg/dl Cholesterol/HDL Ratio 3.5 Date/Time Source Procedure Growth Status 10/17/16 11:00 Urine , Clean Catch Urine Culture - Final THREE TYPES OF ORGANISMS PRESENT, ALL... Complete Problem Qualifiers (1) Obesity: Obesity type: due to excess calories
[2016-11-06 06:42] VITALS: BP 135/83; PULSE 96; TEMP 36.6
[2016-11-06] MEDS: HYDROCHLOROTHIAZIDE 25 MG TAB PO SCH (07:39)
[2016-11-06] MEDS: MULTIVITAMIN TAB PO SCH (07:39)
--- NOTE | 2016-11-06 12:07 | Psychiatric Progress Notes ---
Progress Note Date of Service Nov 06, 2016. Interval History 41 yo female admitted voluntarily on 10/18/16 with an acute exacerbation of paranoid schizophrenia after being off of her medications. Chief Complaint "What do you think is going to happen to me?". Subjective Patient was seen & assessed interval progress reviewed with Treatment Team. Per staff, patient's sister has expressed willingness to allow the patient to live with her for a time in [place] and apparently has made some arrangements potentially to calm and provide transportation for the patient tomorrow. It appears that a specific follow-up appointment unfortunately is yet pending for a provider in [place] however she has been referred for the intake. In discussing symptoms with patient, she acknowledges continued paranoia, continues to hear voices indicating that people want to eat her or each other, however she does feel that this is less intense than it used to be. She believes she has been having chronic auditory hallucinations for years now. I'm uncertain how close she may need to her typical baseline. She expresses desire to discharge from the hospital however she also indicates that if she finds herself completely homeless that she may try to hurt herself and also indicates that if she becomes scared, she has a tendency to "wander" or run away. Overall she feels that she is tolerating invega adequately but does complain of some negative impact on appetite. She is noted to have "do no gluttony" drawn on her arm, "God, and a drawing of the evil eye for protection". Review of Systems Constitutional: + problem reported (loss of appetite) Neurologic: No memory loss, No paralysis, No weakness, No numbness/tingling, No vertigo, No balance problems, No problem reported Medication Side Effects: Sedation Sleep Information Total Hours of Sleep: 8.50 Meal Information Percent of Breakfast Consumed: 100 Percent of Lunch Consumed: 100 Percent of Dinner Consumed: 100 Mental Status Exam During interview pt is: alert and oriented Appearance: appropriately dressed, appropriately groomed Eye contact is: good Motor behavior is: steady gait & station Speech: normal in rate, rhythm & volume Affect: anxious Mood is: other ("worried") Thought process: goal directed Thought content: paranoid Suicidal thought are: denied Homicidal thoughts are: denied Hallucinations: auditory, denies visual Cognition: memory grossly intact, language grossly intact, other (attention impaired) Intelligence estimated to be: average Insight: impaired Judgement: impaired Impression Per primary team, patient admits that she is using threats of suicide to manipulate her family into letting her live with them. She says that she is not actually suicidal nor does she have plans to hurt herself. She may be able to live with sister but otherwise psychiatric f/u has not yet been obtained beyond initial referral. Plan (1) Paranoid schizophrenia 1. Safety - inpatient is least restrictive and most appropriate setting for care due to ongoing AH prompting SI with plan, disorganization and paranoid delusions of others harming her resulting in statement "I am going to be violent" and limited ability to care for self in this disorganized state - milieu, group therapy, and while still verbalizing thoughts of violence Medically necessary private room 2. Medications - Risperdal 1mg/hs with 0.5mg po tid prn watching for orthostasis, and sedation , 10/19/16 will get FBS and Fasting lipids; watch tachycardia may be agitation of psychosis but could be SE or risperdal - change klonopin to prn ativan for severe agitation due to shorter half life and need to monitor sedation 3. Obtain prior records from [facility] to learn about past med trials, efficacy and side effects, if risperdal is efficacious consider Consta or Invega to foster compliance if no contraindications and accessible 10/19 - Increase Risperdal to 1 mg. AM and 1.5 mg. HS - Obtain supplemental from family 10/20 - Continue current meds - Work toward an BANKS 10/21 - Increase Risperidone to 2 mg PO qAM and 3 mg HS 10/22 - Some improvement in the that auditory and visual hallucinations seem less intrusive. However, she seems to have acted out when her breakfast tray was delivered later than she expected by calling 911 and telling the entry table operator that we are "starving her." We were able to process that in our session. - Increase risperidone to 2 mg qam and 4 mg HS. 10/23 - Continue current medications - Assist with reality orientation 10/24 - Increase Risperdal to 2 mg. AM and 5 mg HS - Add Klonopin 1 mg. AM - Phone conversation with sister Luda 10/25 - Continue current meds 10/26 - Meeting with sister scheduled for 10/29 - Cont risperidone, consider need to increase dose further vs add a second antipsychotic if psychosis does not improve further - Encourage group attendance/participation/reality testing - Discontinue clonazepam as patient is refusing to take it. Continue lorazepam 1mg tid prn. 10/27 - Increase Risperdal to 3 mg. AM and 6 mg HS to target psychosis - Patient refused to consider Invega or any BANKS 10/28 - Now willing for BANKS. Will start Sustenna 234 mg IM today with 2nd injection of 156 mg on day 4 - Will DC risperdal and order Invega po 6 mg HS as we make the transition. 10/29 - discussed augmenting Invega with a typical for acute symptom relief. She is adamant that she read "horrible things" about Haldol. Offered/ declined Trilafon. Offered standing order benzo for now, patient also declined. 10/30 - continues to refuse augmentation with an additional antipsychotic, wanting to attribute some of her symptoms to the medication. Continue oral Invega until she gets her second loading dose, and will then discontinue. 10/31 - continue current plan for medications (second Sustenna loading dose due today), and order Haldol both by mouth and IM as needed. If she will agree to take any other typical antipsychotic, would be willing to order it, but currently is refusing to take anything for her psychosis. - Patient states that she thinks she can go live with her mother in [place], despite having never discussed this with her mother in the past. She plans to call her mother today, and will let staff know if mother is willing to explore this option, and which case a family meeting will need to be scheduled. 11/01 - Continue to explore housing and aftercare plans - Continue current meds 11/02 - Continue current medications and explore aftercare plans. 11/03 - Discontinue oral Invega, and schedule maintenance dose of Invega Sustenna 117 mg IM for 11/28/2016. - Working on discharge planning; no housing as yet identified, as patient's sister is now on willing to assist her in moving to the [place] area. The patient and her sister are hopeful that she can stay with parents in [place], and manager social services has been trying to get in touch with them to no avail. 11/05 - Move forward with plans to discharge to homeless skilled nursing in [facility] where she can be near her sister Luda - Will contact Luda today to discuss what day she can come to get her. 11/06 - will attempt to review plan with SW and primary team as I have concerns about access to f/u if we proceed w/ discharge plan for tomorrow. This AM is the first I have met this patient. She is denying active SI/HI this am but does report ongoing AH, paranoia. (2) Obesity - obtain fasting lipids and blood sugar - monitor and consider metformin to offset weight gain of AAP - encourage physical activity as tolerated to reduce risk of gain 10/19 - FLP normal, glucose elevated 100. Will require ongoing monitoring as obese and on atypical antipsychotic. 10/23 -The patient is eating to excess, necessitating that the staff lockup food in the common areas. She is eating 100% of all 3 meals plus snacks. (3) Hypertension 10/18 - Lisinopril 25mg daily started. Will need f/u with PCP. Discharge / Aftercare Planning Primary Care Physician: Name: does not have Therapist: Name: referral pending through [employer] Research Analyst: Name: Jerry Rodriguez [employer] Appointment Notes: intake packet faxed - intake pending Other: Name of Appointment #1: [place] [facility] Visit Code E&M Code: 00001 Inventory Assets Strengths: voluntary for admission, supportive family (allbeit geographically ), locked unit Needs: assurance of aftercare and treatment plan to foster compliance clarification of her job and housing status Risk Factors Assessment : No /single/: Yes Higher / Fall in social status: No Health problems: No Mental Health Diagnoses: Yes Substance use disorders: No Previous attempt: Yes Previous attempt; planned: No Previous attempt; didn't tell: Yes Family history of suicide: No Previous psychiatric stay: Yes Hopelessness: Yes Smoker: No Protective Factors Assessment Moravian beliefs: Yes : No Responsible for young children: No Employed: No Stable relationships: No Supportive family: Yes Good rapport with provider: No Absence of risk factors above: No Data Vital Signs Last 24 Hrs: Date Time Temp Pulse Resp B/P (MAP) Pulse Ox O2 Delivery O2 Flow Rate FiO2 11/06/16 06:42 36.6 96 18 135/83 Problem Qualifiers (1) Obesity: Obesity type: due to excess calories
[2016-11-07 07:00] VITALS: BP_SYST 130; BP_SYST 131; BP_DIAS 80; BP_DIAS 85; PULSE 85; PULSE 86; TEMP 36.8
[2016-11-07] MEDS ORDERED: PERPHENAZINE 2 MG TAB PO ONE (11:45)
--- NOTE | 2016-11-07 11:45 | Psychiatric Progress Notes ---
Progress Note Date of Service Nov 07, 2016. Interval History 41 yo female admitted voluntarily on 10/18/16 with an acute exacerbation of paranoid schizophrenia after being off of her medications. Chief Complaint "I just want the voices to stop". Subjective Patient was seen & assessed interval progress reviewed with Treatment Team. Reviewed with staff that the patient's sister yesterday had indicated inability to accommodate the patient in her home, however it appears she called the unit again this morning and stated that circumstances have changed and that she could accept the patient in her home however she did not have a working car and could not provide transportation. On interview this morning the patient remains eager to discharge but states that she is still fearful that she will be homeless and again comments that if she gets scared or finds herself homeless outside the hospital that she may become suicidal. She reports chronic auditory hallucinations and continues to find this distressing. She requests additional help with her hallucinations and is not willing to consider augmenting antipsychotic treatment, at least temporarily. We discussed the common risks and benefits of typical antipsychotics including motor side effects and metabolic side effects. While she expressed some concern about the potential for side effects she was willing to give the medication a trial here in the hospital to reduce her auditory hallucinations. She reported that her mood was better today and then loosely tells me that she is over her "illness" from yesterday. She believes she feels better today because she got good rest. However she quickly contradicts herself and states that she has been so persistently worried that she is unable to sleep. She inquires about possibility of pursuing disability. Review of Systems Heavy menses yesterday reduce today Cardiovascular: No chest pain, No orthopnea, No PND, No edema, No claudication , No palpitations, No problem reported Medication Side Effects: Sedation Sleep Information Total Hours of Sleep: 8.00 Meal Information Percent of Breakfast Consumed: 100 Percent of Lunch Consumed: 75 Percent of Dinner Consumed: 100 Mental Status Exam During interview pt is: alert and oriented Appearance: appropriately dressed, appropriately groomed Eye contact is: good Motor behavior is: steady gait & station, no abnormal motor movements Speech: normal in rate, rhythm & volume Affect: anxious Mood is: other (better) Thought process: looseness of associations Thought content: paranoid Suicidal thought are: denied Homicidal thoughts are: denied Hallucinations: auditory, denies visual Cognition: memory grossly intact, language grossly intact, other (attention impaired) Intelligence estimated to be: average Insight: impaired Judgement: impaired Impression Per primary team, patient admits that she is using threats of suicide to manipulate her family into letting her live with them. She says that she is not actually suicidal nor does she have plans to hurt herself. She may be able to live with sister but otherwise psychiatric f/u has not yet been obtained beyond initial referral. Plan (1) Paranoid schizophrenia 1. Safety - inpatient is least restrictive and most appropriate setting for care due to ongoing AH prompting SI with plan, disorganization and paranoid delusions of others harming her resulting in statement "I am going to be violent" and limited ability to care for self in this disorganized state - milieu, group therapy, and while still verbalizing thoughts of violence Medically necessary private room 2. Medications - Risperdal 1mg/hs with 0.5mg po tid prn watching for orthostasis, and sedation , 10/19/16 will get FBS and Fasting lipids; watch tachycardia may be agitation of psychosis but could be SE or risperdal - change klonopin to prn ativan for severe agitation due to shorter half life and need to monitor sedation 3. Obtain prior records from [facility] to learn about past med trials, efficacy and side effects, if risperdal is efficacious consider Consta or Invega to foster compliance if no contraindications and accessible 10/19 - Increase Risperdal to 1 mg. AM and 1.5 mg. HS - Obtain supplemental from family 10/20 - Continue current meds - Work toward an BANKS 10/21 - Increase Risperidone to 2 mg PO qAM and 3 mg HS 10/22 - Some improvement in the that auditory and visual hallucinations seem less intrusive. However, she seems to have acted out when her breakfast tray was delivered later than she expected by calling 911 and telling the engine lathe operator that we are "starving her." We were able to process that in our session. - Increase risperidone to 2 mg qam and 4 mg HS. 10/23 - Continue current medications - Assist with reality orientation 10/24 - Increase Risperdal to 2 mg. AM and 5 mg HS - Add Klonopin 1 mg. AM - Phone conversation with sister Luda 10/25 - Continue current meds 10/26 - Meeting with sister scheduled for 10/29 - Cont risperidone, consider need to increase dose further vs add a second antipsychotic if psychosis does not improve further - Encourage group attendance/participation/reality testing - Discontinue clonazepam as patient is refusing to take it. Continue lorazepam 1mg tid prn. 10/27 - Increase Risperdal to 3 mg. AM and 6 mg HS to target psychosis - Patient refused to consider Invega or any BANKS 10/28 - Now willing for BANKS. Will start Sustenna 234 mg IM today with 2nd injection of 156 mg on day 4 - Will DC risperdal and order Invega po 6 mg HS as we make the transition. 10/29 - discussed augmenting Invega with a typical for acute symptom relief. She is adamant that she read "horrible things" about Haldol. Offered/ declined Trilafon. Offered standing order benzo for now, patient also declined. 10/30 - continues to refuse augmentation with an additional antipsychotic, wanting to attribute some of her symptoms to the medication. Continue oral Invega until she gets her second loading dose, and will then discontinue. 10/31 - continue current plan for medications (second Sustenna loading dose due today), and order Haldol both by mouth and IM as needed. If she will agree to take any other typical antipsychotic, would be willing to order it, but currently is refusing to take anything for her psychosis. - Patient states that she thinks she can go live with her mother in [place], despite having never discussed this with her mother in the past. She plans to call her mother today, and will let staff know if mother is willing to explore this option, and which case a family meeting will need to be scheduled. 11/01 - Continue to explore housing and aftercare plans - Continue current meds 11/02 - Continue current medications and explore aftercare plans. 11/03 - Discontinue oral Invega, and schedule maintenance dose of Invega Sustenna 117 mg IM for 11/28/2016. - Working on discharge planning; no housing as yet identified, as patient's sister is now on willing to assist her in moving to the [place] area. The patient and her sister are hopeful that she can stay with parents in [place], and social media intern has been trying to get in touch with them to no avail. 11/05 - Move forward with plans to discharge to homeless residential in [facility] where she can be near her sister Luda - Will contact Luda today to discuss what day she can come to get her. 11/06 - will attempt to review plan with SW and primary team as I have concerns about access to f/u if we proceed w/ discharge plan for tomorrow. This AM is the first I have met this patient. She is denying active SI/HI this am but does report ongoing AH, paranoia. 11/07 - Patient now willing to trial augmenting antipsychotic. Common risks and benefits were reviewed as above. We'll start Trilafon at low dose of 2 mg by mouth twice a day to start. Reviewed that this is off label treatment in combination with her invega, targeting chronic and incompletely medicated auditory hallucinations and associated psychotic delusions - Disposition remains uncertain as above as this transportation and follow- up. (2) Obesity - obtain fasting lipids and blood sugar - monitor and consider metformin to offset weight gain of AAP - encourage physical activity as tolerated to reduce risk of gain 10/19 - FLP normal, glucose elevated 100. Will require ongoing monitoring as obese and on atypical antipsychotic. 10/23 -The patient is eating to excess, necessitating that the staff lockup food in the common areas. She is eating 100% of all 3 meals plus snacks. (3) Hypertension 10/18 - Lisinopril 25mg daily started. Will need f/u with PCP. Discharge / Aftercare Planning Primary Care Physician: Name: does not have Therapist: Name: referral pending through [facility] Certified Rehabilitation Counselor: Name: Danieldenae Rodriguez [facility] Appointment Notes: intake packet faxed - intake pending Other: Name of Appointment #1: [place] [facility] Visit Code E&M Code: 23451 Inventory Assets Strengths: voluntary for admission, supportive family (allbeit geographically ), locked unit Needs: assurance of aftercare and treatment plan to foster compliance clarification of her job and housing status Risk Factors Assessment : No /single/: Yes Higher / Fall in social status: No Health problems: No Mental Health Diagnoses: Yes Substance use disorders: No Previous attempt: Yes Previous attempt; planned: No Previous attempt; didn't tell: Yes Family history of suicide: No Previous psychiatric stay: Yes Hopelessness: Yes Smoker: No Protective Factors Assessment Nondenominational beliefs: Yes : No Responsible for young children: No Employed: No Stable relationships: No Supportive family: Yes Good rapport with provider: No Absence of risk factors above: No Data Vital Signs Last 24 Hrs: Date Time Temp Pulse Resp B/P (MAP) Pulse Ox O2 Delivery O2 Flow Rate FiO2 11/07/16 07:00 36.8 85 18 130/80 86 131/85 Problem Qualifiers (1) Obesity: Obesity type: due to excess calories
[2016-11-07] MEDS: HYDROCHLOROTHIAZIDE 25 MG TAB PO SCH (12:47)
[2016-11-07] MEDS: MULTIVITAMIN TAB PO SCH (12:47)
[2016-11-07] MEDS ORDERED: HYDR25TA5 PO (14:40)
[2016-11-07] MEDS ORDERED: MULT-890 PO (14:40)
[2016-11-07] MEDS ORDERED: TRL2 PO (14:40)
[2016-11-07] MEDS ORDERED: PALI117I IM (14:40)
--- NOTE | 2016-11-07 14:49 | Discharge Instructions ---
Discharge Information Report Includes Report will include the: Discharge Instructions & Summary Admission Admission Date / Time: Oct 17, 2016 at 17:22 Reason for Admission: Anxiety, Paranoid, Schizophrenia, Mh Eval Discharge Discharge Diagnosis / Problem: schizophrenia Condition at Discharge: Fair Discharge Goals Goal(s): Improve function, Improve disease control Activity Recommendations Activity Limitations: resume your previous activity . Instructions / Follow-Up Instructions / Follow-Up . SPECIAL CARE INSTRUCTIONS: 1. Follow through with your scheduled aftercare appointments. If unable to keep an appointment, please call to reschedule. 2. Take your medication only as prescribed. Medication should not be changed or stopped without the approval of your doctor. In the event of worsening symptoms or concerns about side effects, contact your doctor immediately. 3. Utilize new healthy coping skills, anger management skills, and stress management skills learned during your hospitalization. Journal feelings and process them with a support person. Identify stressors or situations that may result in relapse, deterioration or inappropriate behaviors and develop a plan to deal with those issues. 4. If your coping skills are ineffective and you are in crisis, contact your outpatient providers for direction. If unable to reach your providers, please call the CAN HELP LINE AT or go to the closest Emergency Room. 5. Avoid alcohol and un-prescribed drugs. 6. You have been provided with the Mental Health Advance Directives Pamphlet for your review. AFTERCARE APPOINTMENTS: * Please call your insurance company prior to your scheduled appointment to confirm your aftercare providers are covered. Take your insurance information to your appointments. . Discharge / Aftercare Planning Primary Care Physician: Name: does not have Therapist: Name Of Therapist: referral pending through [facility] Polysomnography Technologist: Name: Jerry Rodriguez Browster Appointment Notes: intake packet faxed - intake pending Other: Name of Appointment #1: [facility] . Follow-Up Care Plan for Follow-Up Care: your next injection is due 11/28/16. Please follow through with intake with MH/ ID when arrive in [facility] so that a provider to provide the shot can be determined. Your county of residence and therefore managed care plan will change and likely to require prior authorization and/or prescription may need submitted to a specialty care pharmacy. Current Hospital Diet Patient's current hospital diet: Regular Diet Discharge Diet Recommended Diet: Regular Diet Procedures Procedures Performed: Yes List Procedure(s) Performed: head CT Pending Studies Pending Studies at Discharge: No Medical Emergencies . Who to Call and When: Medical Emergencies: For questions or emergencies related to your hospital stay, please contact the Inpatient Behavioral Health Unit at [phone]. A community association manager is on-call 22/11 for the Behavioral Health Unit for emergencies At any time you feel your situation is an emergency, you may also call 911 immediately. . Non-Emergent Contact Non-Emergency issues call your: Polysomnography TechnologistSenior Net Architect Number: above Advance Directives Existing Advance Directive: No Do You Have an Existing Mental: No Existing Living Will: No Existing Power of Plumbing Inspector: No Advance Directives Info Given: To Pt/S.O. Advance Directives Reason: Declines as Mental Health Visit. 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 She left because a certain male was pacing and " he stood by the refidgerator and the voices told me he was going to cut me up and eat me." she states she has been paranoid and "needs to get away from the evil" She has written in pen on both arms, one non-sensical scribble "blue" and the other forearm has "gluttony no" and "god" written she says "to salas off the evil." She came to the hospital "you have to help me get rid of the voices" but then shares she is willing to take medications but then also shares that she does not like medications. She cannot recall prior outpatient treatment providers, she cannot recall names of prior medications and cannot recall last time she took medications stating "they make me feel worse and I would rather get a gun in [place] than have the voices" when provider clarifies she states "a gun to shoot myself." She says this to this provider today and also had told this to the ER case picker 10/17/16. Today she is worried that "the people here are carrying around axes" and " trying to sedate me with that date rape drug" She denies having SI, but very clearly reiterates her statement about wishing she had a gun. She denies having HI, "I don't believe in violence" then later states "can you just give me some time, I feel like I am going to be violent" She is very guarded as she watches the security installer enter the unit (here for a different patient) and closes her door and peeks out. She recalls having thought blocking yesterday "when I was trying to answer her question in the ER.....I could not answer and I was acting odd" She denies Thought insertion. She denies command hallucinations, and denies being told to hurt herself or others. Psychiatric ROS: She does endorse intermittant depression "I want my life back together, I get low when I can't make things work" She denies s/sx of hx of DIGFAST of euphoric or mixed clarence She feels anxious today about others on the unit. She denies having general anxiety or worry/ She denies h/o P/E/V/S abuse or trauma She denies h/o learning disorder or behavioral concerns in school growing up. She denies s/sx of eating disordered behaviors. Admission Exam Per the Admitting provider: see H&P. Hospital Course (1) Paranoid schizophrenia 1. Safety - inpatient is least restrictive and most appropriate setting for care due to ongoing AH prompting SI with plan, disorganization and paranoid delusions of others harming her resulting in statement "I am going to be violent" and limited ability to care for self in this disorganized state - milieu, group therapy, and while still verbalizing thoughts of violence Medically necessary private room 2. Medications - Risperdal 1mg/hs with 0.5mg po tid prn watching for orthostasis, and sedation , 10/19/16 will get FBS and Fasting lipids; watch tachycardia may be agitation of psychosis but could be SE or risperdal - change klonopin to prn ativan for severe agitation due to shorter half life and need to monitor sedation 3. Obtain prior records from [facility] to learn about past med trials, efficacy and side effects, if risperdal is efficacious consider Consta or Invega to foster compliance if no contraindications and accessible 10/19 - Increase Risperdal to 1 mg. AM and 1.5 mg. HS - Obtain supplemental from family 10/20 - Continue current meds - Work toward an BANKS 10/21 - Increase Risperidone to 2 mg PO qAM and 3 mg HS 10/22 - Some improvement in the that auditory and visual hallucinations seem less intrusive. However, she seems to have acted out when her breakfast tray was delivered later than she expected by calling 911 and telling the aggregate conveyor operator that we are "starving her." We were able to process that in our session. - Increase risperidone to 2 mg qam and 4 mg HS. 10/23 - Continue current medications - Assist with reality orientation 10/24 - Increase Risperdal to 2 mg. AM and 5 mg HS - Add Klonopin 1 mg. AM - Phone conversation with sister Luda 10/25 - Continue current meds 10/26 - Meeting with sister scheduled for 10/29 - Cont risperidone, consider need to increase dose further vs add a second antipsychotic if psychosis does not improve further - Encourage group attendance/participation/reality testing - Discontinue clonazepam as patient is refusing to take it. Continue lorazepam 1mg tid prn. 10/27 - Increase Risperdal to 3 mg. AM and 6 mg HS to target psychosis - Patient refused to consider Invega or any BANKS 10/28 - Now willing for BANKS. Will start Sustenna 234 mg IM today with 2nd injection of 156 mg on day 4 - Will DC risperdal and order Invega po 6 mg HS as we make the transition. 10/29 - discussed augmenting Invega with a typical for acute symptom relief. She is adamant that she read "horrible things" about Haldol. Offered/ declined Trilafon. Offered standing order benzo for now, patient also declined. 10/30 - continues to refuse augmentation with an additional antipsychotic, wanting to attribute some of her symptoms to the medication. Continue oral Invega until she gets her second loading dose, and will then discontinue. 10/31 - continue current plan for medications (second Sustenna loading dose due today), and order Haldol both by mouth and IM as needed. If she will agree to take any other typical antipsychotic, would be willing to order it, but currently is refusing to take anything for her psychosis. - Patient states that she thinks she can go live with her mother in [place], despite having never discussed this with her mother in the past. She plans to call her mother today, and will let staff know if mother is willing to explore this option, and which case a family meeting will need to be scheduled. 11/01 - Continue to explore housing and aftercare plans - Continue current meds 11/02 - Continue current medications and explore aftercare plans. 11/03 - Discontinue oral Invega, and schedule maintenance dose of Invega Sustenna 117 mg IM for 11/28/2016. - Working on discharge planning; no housing as yet identified, as patient's sister is now on willing to assist her in moving to the [facility]. The patient and her sister are hopeful that she can stay with parents in [place], and social studies department chair has been trying to get in touch with them to no avail. 11/05 - Move forward with plans to discharge to homeless group home in [facility] where she can be near her sister Luda - Will contact Luda today to discuss what day she can come to get her. 11/06 - will attempt to review plan with SW and primary team as I have concerns about access to f/u if we proceed w/ discharge plan for tomorrow. This AM is the first I have met this patient. She is denying active SI/HI this am but does report ongoing AH, paranoia. 11/07 - Patient now willing to trial augmenting antipsychotic. Common risks and benefits were reviewed as above. We'll start Trilafon at low dose of 2 mg by mouth twice a day to start. Reviewed that this is off label treatment in combination with her invega, targeting chronic and incompletely medicated auditory hallucinations and associated psychotic delusions - Disposition remains uncertain as above as this transportation and follow- up. (2) Obesity - obtain fasting lipids and blood sugar - monitor and consider metformin to offset weight gain of AAP - encourage physical activity as tolerated to reduce risk of gain 10/19 - FLP normal, glucose elevated 100. Will require ongoing monitoring as obese and on atypical antipsychotic. 10/23 -The patient is eating to excess, necessitating that the staff lockup food in the common areas. She is eating 100% of all 3 meals plus snacks. (3) Hypertension 10/18 - Lisinopril 25mg daily started. Will need f/u with PCP. Risk Factors Assessment : No /single/: Yes Higher / Fall in social status: No Health problems: No Mental Health Diagnoses: Yes Substance use disorders: No Previous attempt: Yes Previous attempt; planned: No Previous attempt; didn't tell: Yes Family history of suicide: No Previous psychiatric stay: Yes Hopelessness: Yes Smoker: No Protective Factors Assessment Baptism beliefs: Yes : No Responsible for young children: No Employed: No Stable relationships: No Supportive family: Yes Good rapport with provider: No Absence of risk factors above: No Day of Discharge Assessment Colette is positive re: discharge and having closer connection with sister. She is alert and cooperative. Her speech is normal in rate and volume and affect is brighter and more spontaneous. She still prefers to write on herself, it's more ritualistic than paranoid at this time (superstitious that it protects her) ; she is no longer meeting criteria for inpatient hospitalization. She denies hallucinations and did not express any delusions. She is attending to self care and tolerating a roommate. She has consistently denied thoughts to harm herself or others and verbalizes a safety plan. On an administrative note, Colette's follow-up care plan isn't as complete as we generally are able to offer at discharge. used car make ready worker made a lot of effort to engage family and sister had significant transportation issues. There were also multiple times that disposition to the home versus the available group home in [facility] somewhat changed. Chloé (sister) understands the importance of the MH/ ID intake and need to establish services quickly. Referral has been made but an exact appt date/time was not available at the time of preparation of this report. Patient needs to be discharged to make a 10 am bus to [facility] as sister has arranged transportation. Laboratory Test 10/17/16 11:00 10/17/16 11:57 10/19/16 06:10 Urine Color YELLOW Urine Appearance CLEAR Urine pH 6.5 Urine Specific [place] 1.017 Urine Protein NEG Urine Glucose (UA) NEG Urine Ketones NEG Urine Occult Blood TRACE Urine Nitrite NEG Urine Bilirubin NEG Urine Urobilinogen NEG Urine Leukocyte Esterase NEG Urine WBC (Auto) 1-5 Urine RBC (Auto) 0-4 Urine Hyaline Casts (Auto) 1-5 Urine Epithelial Cells (Auto) >30 Urine Bacteria (Auto) 1+ Urine Test NEG Urine Synthetic Stimulants see note Urine Opiates Screen NEG Urine Methadone, Qualitative NEG Urine Barbiturates NEG Urine Phencyclidine (PCP) Level NEG Ur Amphetamine/Methamphetamine NEG MDMA (Ecstasy) Screen NEG Urine Benzodiazepines Screen NEG Urine Cocaine Metabolite NEG Cannabinoids Comment see note Urine Synthetic Cannabinoids NEGATIVE Ur Synthetic Cannabinoids Confirm Urine Marijuana (THC) NEG White Blood Count 7.07 Red Blood Count 4.55 Hemoglobin 12.0 Hematocrit 36.4 Mean Corpuscular Volume 80.0 Mean Corpuscular Hemoglobin 26.4 Mean Corpuscular Hemoglobin Concent 33.0 Platelet Count 299 Mean Platelet Volume 8.9 Neutrophils (%) (Auto) 62.4 Lymphocytes (%) (Auto) 26.6 Monocytes (%) (Auto) 8.9 Eosinophils (%) (Auto) 1.6 Basophils (%) (Auto) 0.4 Neutrophils # (Auto) 4.41 Lymphocytes # (Auto) 1.88 Monocytes # (Auto) 0.63 Eosinophils # (Auto) 0.11 Basophils # (Auto) 0.03 RDW Standard Deviation 44.9 RDW Coefficient of Variation 15.4 Immature Granulocyte % (Auto) 0.1 Immature Granulocyte # (Auto) 0.01 Sodium Level 142 Potassium Level 3.6 Chloride Level 107 Carbon Dioxide Level 28 Anion Gap 7.0 Blood Urea Nitrogen 10 Creatinine 0.95 Est Creatinine Clear Calc Drug Dose 98.7 Estimated GFR () 86.2 Estimated GFR (Non- 74.4 BUN/Creatinine Ratio 10.0 Random Glucose 98 Calcium Level 8.6 Total Bilirubin 0.3 Aspartate Amino Transferase (AST) 25 Alanine Aminotransferase (ALT) 50 Alkaline Phosphatase 83 Total Protein 7.0 Albumin 3.3 Globulin 3.7 Albumin/Globulin Ratio 0.9 Thyroid Stimulating Hormone (TSH) 0.641 Salicylates Level < 1.7 Acetaminophen Level < 2 Ethyl Alcohol mg/dL < 3.0 Fasting Glucose 100 Triglycerides Level 125 Cholesterol Level 166 HDL Cholesterol 47 LDL Cholesterol, Calculated 94 VLDL Cholesterol, Calculated 25 Cholesterol/HDL Ratio 3.5 Total Time Total Time Spent (min): Less than 30 minutes Total Time Included: examination of the patient Tobacco Cessation at Discharge Smoking Status: Never Smoker FDA approved Prescription: non-smoker Antipsychotic Meds Rationale The patient is continuing 2 antipsychotics due to: a history of a minimum of 3 failed trials of monotherapy (LIST): Risperdal, Invega (persistent symptoms), Zyprexa other rationale: Trilafon added late in hospital stay for persistent symptoms as early in Invega course, provide stability as relocates, particularly if some delay in getting follow-up injection. Hopefully it can be tapered over time. Problem Qualifiers (1) Obesity: Obesity type: due to excess calories
[2016-11-07] MEDS: PERPHENAZINE 2 MG TAB PO SCH (21:07)
[2016-11-08 07:03] VITALS: BP_SYST 122; BP_SYST 133; BP_DIAS 80; BP_DIAS 83; PULSE 91; PULSE 96; TEMP 36.9
--- NOTE | 2016-11-08 08:10 | Psychiatric Progress Notes ---
Psychiatric Progress Note Date of Service Nov 08, 2016. Notes Patient seen. MS assessed. Documented in discharge summary documented. Stable for discharge to outpatient level of care.
[2016-11-08] MEDS: PERPHENAZINE 2 MG TAB PO SCH (08:25)
[2016-11-08] MEDS: HYDROCHLOROTHIAZIDE 25 MG TAB PO SCH (08:25)
[2016-11-08] MEDS: MULTIVITAMIN TAB PO SCH (08:25)
[2016-11-28] MEDS ORDERED: INVEGA SUSTENNA 117 MG/ML 0.75 ML SYR IM SCH (11:00)
== END 2016-11-08 09:11 | disposition home or self-care (01) | DRG 885 ==
LOC: C.EDB 10:33 → C.MHU 17:22
PROVIDERS: ADMIT Psychiatry & Neurology Psychiatry; ATTEND Psychiatry & Neurology Child & Adolescent Psychiatry
DX: F20.0 Paranoid schizophrenia (principal); I10 Essential (primary) hypertension; F32.9 Major depressive disorder, single episode, unspecified; E66.9 Obesity, unspecified; Z59.0 Homelessness